=== PATIENT | male | born 1965 | race Caucasian/White ===

== ENCOUNTER 2017-11-01 01:15 | Inpatient (IN) ==
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
[2017-11-01 04:22] LABS: Baso # (Auto) 0.1 th/mm3 (0.0-0.2); Baso % (Auto) 0.7 % (0.0-2.0); Eos # (Auto) 0.1 th/mm3 (0.0-0.4); Eos % (Auto) 1.3 % (0.0-4.0); Hematocrit 43.3 % (39.0-51.0); Hemoglobin 14.9 gm/dL (13.0-17.0); Lymph # (Auto) 2.3 th/mm3 (1.0-4.8); Lymph % (Auto) 30.4 % (9.0-44.0); Mean Corpuscular HGB Conc 34.3 % (32.0-36.0); Mean Corpuscular Hemoglobin 31.6 pg (27.0-34.0); Mean Corpuscular Volume 92.1 fL (80.0-100.0); Mean Platelet Volume 8.3 fL (7.0-11.0); Mono # (Auto) 0.6 th/mm3 (0.0-0.9); Mono % (Auto) 8.5 % (0.0-8.0); Neut # (Auto) 4.4 th/mm3 (1.8-7.7); Neut % (Auto) 59.1 % (16.0-70.0); Platelet Count 190 th/mm3 (150-450); Red Blood Count 4.71 mil/mm3 (4.50-5.90); Red Cell Distribution Width 13.9 % (11.6-17.2); White Blood Count 7.5 th/mm3 (4.0-11.0)
--- NOTE | 2017-11-01 04:26 | XR ---
EXAM DATE: 11/01/2017 4:21 AM EDT AGE/SEX: 52 years / Male INDICATIONS: Shortness of breath CLINICAL DATA: This is the patient's initial encounter. Patient reports that signs and symptoms have been present for 1 day and indicates a pain score of 0/10. MEDICAL/SURGICAL HISTORY: None. None. COMPARISON: . FINDINGS: The lungs are symmetrically aerated. There is a triangular-shaped opacity in the lower lateral right lung which may represent a small infiltrate or atelectasis. The left lung is clear. No evidence of pn eumothorax. Both hemidiaphragms well delineated. The heart is normal size. CONCLUSION: Small opacity in the lower lateral right lung may represent an infiltrate or platelike atelectasis. Electronically signed by: Arnaldo Mauricio MD 11/01/2017 4:25 AM EDT
--- NOTE | 2017-11-01 04:29 | XR ---
EXAM DATE: 11/01/2017 4:22 AM EDT AGE/SEX: 52 years / Male INDICATIONS: Left humerus pain, swelling from known fracture CLINICAL DATA: This is the patient's initial encounter. Patient reports that signs and symptoms have been present for 1 week and indicates a pain score of 8/10. MEDICAL/SURGICAL HISTORY: . Left humerus fracture 2 months ago None. COMPARISON: No prior exams available for comparison. FINDINGS: There is a spiral fracture of the proximal one third shaft of the humerus with one shaft width medial displacement and mild posterior angulation. There are are some faint adjacent calcific densities sug gesting of periosteal ossification. There is no bridging callus across the fracture line however. A h airline fracture line also extends from the proximal diaphysis into the greater tuberosity, best seen on the lateral view. CONCLUSION: There is no bridging callus across the displaced and angulated spiral fracture of the proximal shaft of the humerus. There is also a nondisplaced hairline fracture line which extends into the greater tu berosity. Electronically signed by: Arnaldo Mauricio MD 11/01/2017 4:28 AM EDT
[2017-11-01 04:34] LABS: Activated Partial Thrombo Time 40.6 sec (24.3-30.1); INR 1.4 Ratio; Prothrombin Time 14.6 sec (9.8-11.6)
[2017-11-01 04:46] LABS: Alanine Aminotransferase 24 U/L (12-78); Albumin 2.7 g/dL (3.4-5.0); Anion Gap 9 meq/L (5-15); Aspartate Aminotransferase 75 U/L (15-37); Blood Urea Nitrogen 5 mg/dL (7-18); Calcium 7.9 mg/dL (8.5-10.1); Chloride 95 meq/L (98-107); Glomerular Filtration Rate Greater Than 89 mL/min (>89); Glucose,Random 110 mg/dL (74-106); Lipase 59 U/L (73-393); Magnesium 1.7 mg/dL (1.5-2.5); Sodium 133 meq/L (136-145)
[2017-11-01 04:50] LABS: Alkaline Phosphatase 218 U/L (45-117); Total Protein 7.9 g/dL (6.4-8.2)
[2017-11-01 04:51] LABS: Alcohol 160 mg/dL (0-5)
[2017-11-01] MEDS ORDERED: Vancomycin Inj 1,000 MG in Sodium Chlor 0.9% Inj 250 ML IV.SIG ONE (06:08)
--- NOTE | 2017-11-01 06:24 | CT ---
EXAM DATE: 11/01/2017 5:43 AM EDT AGE/SEX: 52 years / Male INDICATIONS: Abdominal pain, distention. CLINICAL DATA: This is the patient's initial encounter. Patient reports that signs and symptoms have been present for 1 day and indicates a pain score of 6/10. MEDICAL/SURGICAL HISTORY: Hypertension. Cirrhosis. None. ORAL CONTRAST: No oral contrast ingested. RADIATION DOSE: 8.90 CTDI (mGy) COMPARISON: No prior exams available for comparison. TECHNIQUE: Multiple contiguous axial images were obtained through the abdomen and pelvis following b olus infusion of 95 ml Omnipaque 350 (iohexol) nonionic water-soluble contrast as a cumulative dose for multiple exams. No oral contrast ingested. Using automated exposure control and adjustment of t he mA and/or kV according to patient size, radiation dose was kept as low as reasonably achievable to obtain optimal diagnostic quality images. DICOM format image data is available electronically for r eview and comparison. FINDINGS: There is a severe amount of ascites throughout the abdomen and pelvis. Lower Lungs: Segmental consolidation in the medial right lower lung with air bronchograms. Small left pleural effusion. Liver: Mild hepatomegaly with craniocaudal dimension 19 cm. The liver has a homogeneous density witho ut space-occupying lesion. There is no dilation of the biliary tree. No calcified gallstones. Spleen: Moderate enlargement of the spleen measuring 16 cm in craniocaudal dimension. No focal lesio ns. Pancreas: Unremarkable without mass or calcification. Kidneys: Normal in size and shape. No evidence of mass or hydronephrosis. Multiple left renal cysts measuring up to 2 cm. Adrenal Glands: Unremarkable. Aorta: The aorta and proximal iliac vessels are grossly unremarkable without aneurysmal dilation. Bowel/Mesentery: The bowel loops are grossly unremarkable. The cecum and sigmoid colon have a normal configuration. Abdominal Wall: Intact. Retroperitoneum: No evidence of adenopathy in the retrocrural, para-aortic, or deep pelvic regions. Bladder: Contours are smooth. Reproductive Organs: No abnormal masses or calcifications seen. Inguinal: The inguinal region is unremarkable without evidence of adenopathy. Bony Structures: Unremarkable. CONCLUSION: 1. Hepatosplenomegaly without focal lesion. 2. Marked ascites. 3. Segmental right lower lung consolidation and small left pleural effusion. Electronically signed by: Arnaldo Mauricio MD 11/01/2017 6:23 AM EDT
--- NOTE | 2017-11-01 06:27 | CT ---
EXAM DATE: 11/01/2017 5:43 AM EDT AGE/SEX: 52 years / Male INDICATIONS: Altered mental status. CLINICAL DATA: This is the patient's initial encounter. Patient reports that signs and symptoms have been present for 1 day and indicates a pain score of 0/10. MEDICAL/SURGICAL HISTORY: Hypertension. Cirrhosis. None. RADIATION DOSE: 56.35 CTDI (mGy) COMPARISON: No prior exams available for comparison. TECHNIQUE: CT of the head without contrast. Using automated exposure control and adjustment of the mA and/or kV according to patient size, radiation dose was kept as low as reasonably achievable to ob tain optimal diagnostic quality images. DICOM format image data is available electronically for revi ew and comparison. FINDINGS: Cerebrum: The ventricles, sulci, and basal cisterns are prominent characteristic of mild central and cortical atrophy.. No evidence of midline shift, mass lesion, hemorrhage or acute infarction. No e xtraaxial fluid collections are seen. Posterior Fossa: The cerebellum and brainstem are intact. The 4th ventricle is midline. The cerebe llopontine angle is unremarkable. Extracranial: The visualized portion of the orbits is intact. Mild mucosal thickening in the inferio r maxillary sinuses bilaterally. Discontinuity of medial maxillary sinus wall bilaterally suggests guerrero rgical defects. Skull: The calvaria is intact. No evidence of skull fracture. CONCLUSION: 1. Mild central and cortical atrophy. 2. No acute findings in the brain. 3. Mild bilateral maxillary sinus mucosal thickening. . Electronically signed by: Arnaldo Mauricio MD 11/01/2017 6:26 AM EDT
--- NOTE | 2017-11-01 06:39 | CT ---
EXAM DATE: 11/01/2017 6:03 AM EDT AGE/SEX: 52 years / Male INDICATIONS: Osteomyelitis. CLINICAL DATA: This is the patient's initial encounter. Patient reports that signs and symptoms have been present for 1 day and indicates a pain score of 4/10. MEDICAL/SURGICAL HISTORY: Hypertension. Cirrhosis. None. RADIATION DOSE: 32.05 CTDI (mGy) COMPARISON: [facility], HUMERUS LEFT MIN 2V, 11/01/2017. . TECHNIQUE: Multiple contiguous axial images were acquired using a multi-row detector CT scanner afte r the intravenous administration of 95 ml Omnipaque 350 (iohexol) nonionic water-soluble contrast as a cumulative dose for multiple exams. Multiplanar reconstruction was performed in the sagittal and coronal planes. Using automated exposure control and adjustment of the mA and/or kV according to pa tient size, radiation dose was kept as low as reasonably achievable to obtain optimal diagnostic qual ity images. DICOM format image data is available electronically for review and comparison. FINDINGS: There is a spiral comminuted fracture of the proximal one third shaft of the humerus with 27 degree a nterior angulation and 1.8 cm posterior displacement of the distal fracture fragment. There is no virgil dging callus across the fracture line, but there is amorphous periosteal reaction and heterotopic oss ification in the soft tissues about the fracture. There is extension of the lateral aspect of the pro ximal fracture fragment into the cutaneous tissues of the mid arm and there is a discontinuity in the scan adjacent to the inferior pointed margin of this bony fragment. There is some heterotopic ossifi cation surrounding the fragment. There is a hairline fracture, nondisplaced, involving the cortex of the anterior proximal humerus ext ending from the superior margin of the displaced fracture to the greater tuberosity. CONCLUSION: 1. There is no evidence of bony fusion across the displaced, angulated, and spiral fracture of the p roximal humerus. 2. There is a cutaneous defect adjacent to the distal aspect of the proximal fracture fragment sugge sting that the fracture is either an open fracture or there is a sinus tract. A cutaneous defect is l ocated approximately 7 cm distal to the main fracture lucency and laterally in the mid arm. Electronically signed by: Arnaldo Mauricio MD 11/01/2017 6:37 AM EDT
[2017-11-01] MEDS ORDERED: Haloperidol Inj 5 MG/ML Ampul IV.PUSH PRN ×2 (06:59→07:05)
[2017-11-01] MEDS ORDERED: Acetaminophen 325 MG Tablet PO PRN (07:00)
[2017-11-01] MEDS ORDERED: Bisacodyl 10 MG Supp RECTAL PRN (07:00)
[2017-11-01] MEDS ORDERED: Morphine Sulfate Inj 2 MG/ML Vial IV.PUSH PRN (07:02)
[2017-11-01] MEDS ORDERED: Vancomycin Consult Pharmacy OTHER PRN (07:03)
[2017-11-01] MEDS ORDERED: LORazepam 1 MG Tablet PO PRN (07:05)
--- NOTE | 2017-11-01 08:04 | P.CONOP ---
[facility] Orthopedics Consult Note - [facility] Consult date: 11/01/17 Consult reason: other Chief complaint: Sinus tract non-union humerus,fracture,cirrohsis Narrative: 52-year-old male presents to the ED in the care of his spouse for evaluation of drainage from the left upper arm at site of subacute spiral fracture from September 09, 2017. Patient was initially seen at [facility] on September 09 and given his multiple medical comorbidities and fracture type and location, it was recommended for at least an initial nonoperative management in a coaptation splint. Patient then was noncompliant with follow-up and continued to drink and smoke excessively to the point of significant falls. Patient followed up in office approximately 4-5 weeks after initial injury. Radiographs at that time demonstrated bony callus formation and clinically patient had no significant pain and therefore it was recommended given his noncompliance and fracture with signs of healing, that we would continue with nonoperative management. At that time, patient was not interested in surgical intervention. Patient was placed back into a splint and instructed to remain nonweightbearing to left upper extremity. Patient was also counseled on smoking and drinking cessation and avoidance of falls. Patient's girlfriend called our office approximately 1-1/2 weeks ago with concern for bone protruding from his skin. He was instructed to immediately present to the emergency department. Again, patient was noncompliant and did not follow instructions. Patient's girlfriend called overnight again with concern for drainage from the open wound. I again discussed with the patient and his girlfriend that he needed to go immediately to the emergency department. Patient presented to the emergency department drunk with significant blood alcohol level. Again, patient is known to have cirrhosis since August of this year and continues to drink in excess despite this. Patient reports multiple falls recently and is unsure when he developed a wound. He denies any fevers, chills, nausea or vomiting. However, he is a very poor historian at present as he remains drunk Review of Systems Unable to fully obtain as patient still remains drunk Currently denies fevers, chills, nausea, vomiting, chest or abdominal pain. Denies blurry vision or throat pain. Denies any specific weakness. Does complain of some left arm pain. [facility] - History History Provided By: Family Member (Hypertension cirrhosis alcohol use humerus fracture) - Medical History Medical History: Medical History (Last Updated 11/01/17 @ 01:20 by Donya Davalos RN) Hypertension - Tobacco History Tobacco Use In Past 30 Days: Yes Smoking Status: Heavy tobacco smoker Tobacco Type: Cigarettes - Alcohol History How Often Do You Have a Drink Containing Alcohol: 4 or more times a week - Substance Use History Substance History: No History of Abuse - Travel History Recent Travel in the [place] Within the Last 8 Weeks: No Recent Travel Out of the Country Within the Last 8 Weeks: No - Immunization History Tetanus Immunization: >5 Years Hx Influenza Vaccine This Season: Unable to Assess Medications and Allergies Active Medications: Active Medications Acetaminophen (Tylenol) 650 mg PO Q4H PRN PRN Reason: Temp > 100.4 Bisacodyl (Dulcolax Supp) 10 mg RECTAL DAILY PRN PRN Reason: SEVERE CONSITIPATION Flumazenil (Romazecon Inj) 0.2 mg IV.PUSH Q1M PRN PRN Reason: OVERSEDATION Flumazenil (Romazecon Inj) 0.2 mg IV.PUSH Q1M PRN PRN Reason: OVERSEDATION Haloperidol Lactate (Haldol Inj) 1 mg IV.PUSH Q15M PRN PRN Reason: for severe agitation Haloperidol Lactate (Haldol Inj) 1 mg IV.PUSH Q15M PRN PRN Reason: for severe agitation Lorazepam (Ativan) 1 mg PO Q4H PRN PRN Reason: for CIWA 8-10 Lorazepam (Ativan) 2 mg PO Q2H PRN PRN Reason: for CIWA 11-14 Lorazepam (Ativan Inj) 2 mg IV.PUSH Q2H PRN PRN Reason: for CIWA 11-14 Lorazepam (Ativan Inj) 2 mg IV.PUSH Q1H PRN PRN Reason: for CIWA 15-20 Lorazepam (Ativan Inj) 1 mg IV.PUSH Q4H PRN PRN Reason: for CIWA 8-10 Lorazepam (Ativan Inj) 2 mg IV.PUSH Q15M PRN PRN Reason: for CIWA > 20 Lorazepam (Ativan) 2 mg PO Q2H PRN PRN Reason: for CIWA 11-14 Lorazepam (Ativan Inj) 2 mg IV.PUSH Q2H PRN PRN Reason: for CIWA 11-14 Lorazepam (Ativan Inj) 2 mg IV.PUSH Q1H PRN PRN Reason: for CIWA 15-20 Lorazepam (Ativan Inj) 2 mg IV.PUSH Q15M PRN PRN Reason: for CIWA > 20 Lorazepam (Ativan Inj) 1 mg IV.PUSH Q4H PRN PRN Reason: for CIWA 8-10 Lorazepam (Ativan) 1 mg PO Q4H PRN PRN Reason: for CIWA 8-10 Morphine Sulfate (Morphine Inj) 2 mg IV.PUSH Q3H PRN PRN Reason: pain > 4 Pharmacy Profile Note (Vancomycin Consult Pharmacy) 1 each OTHER UNSCH PRN PRN Reason: Pharmacy to dose Sennosides (Senokot) 17.2 mg PO Q12H PRN PRN Reason: Moderate Constipation Sodium Chloride (Ns Flush) 2 ml IV.FLUSH PRN PRN PRN Reason: FLUSH AFTER USING IV ACCESS Allergies Allergy/AdvReac Type Severity Reaction Status Date / Time No Known Allergies Allergy Unverified 11/01/17 01:18 Home Medications Medication Instructions Recorded Confirmed Type No Known Home Medications 11/01/17 11/01/17 History Exam Vital signs: Vital Signs 11/01/17 01:18 11/01/17 03:26 Temperature 98.8 F Pulse Rate 108 H 103 H Respiratory Rate 16 22 Blood Pressure 117/79 109/76 Pulse Oximetry 97 95 Intake & Output 10/31/17 11/01/17 11/01/17 18:59 06:59 18:59 Weight 84 kg 78.018 kg Narrative: Sleeping but arousable with sternal rub. Normocephalic Pupils equal No JVD Moist mucous membranes Nonlabored respirations Distended abdomen with cirrhosis Regular rate Left upper extremity: Splint has been removed and patient is in swelling. Small dressing over anterior aspect of proximal third of the humerus. There is a small approximately 5-10 mm round that appears to be skin erosion due to fracture site. There is mild erythema about this area with tenderness to palpation. Patient is minimally cooperative with neuro exam but appears to spontaneously move left upper extremity. Sensation appears grossly intact. Brisk cap refill. Right upper extremity and bilateral lower extremities: No tenderness to palpation or visible deformities. Again patient is minimally cooperative with neuro exam but does appear to spontaneously move all 3 extremities. Sensation appears intact. Brisk cap refill. No rash Abnormal affect Results - Labs Result Diagrams: 11/01/17 04:10 11/01/17 04:10 Labs: Laboratory Results - last 24 hr 11/01/17 11/01/17 11/01/17 04:10 04:10 04:10 WBC 7.5 RBC 4.71 Hgb 14.9 Hct 43.3 MCV 92.1 MCH 31.6 MCHC 34.3 RDW 13.9 Plt Count 190 MPV 8.3 Neut % (Auto) 59.1 Lymph % (Auto) 30.4 Jewell % (Auto) 8.5 H Eos % (Auto) 1.3 Baso % (Auto) 0.7 Neut # (Auto) 4.4 Lymph # (Auto) 2.3 Jewell # (Auto) 0.6 Eos # (Auto) 0.1 Baso # (Auto) 0.1 WBC Differential . Differential Comment Auto diff final PT INR APTT Sodium 133 L Potassium 4.0 Chloride 95 L Carbon Dioxide 29.0 Anion Gap 9 BUN 5 L Creatinine 0.59 L Estimated GFR Greater than 89 Random Glucose 110 H Lactic Acid 0.8 Calcium 7.9 L Magnesium 1.7 Total Bilirubin 0.8 AST 75 H ALT 24 Alkaline Phosphatase 218 H Ammonia Troponin I Less than 0.02 L Total Protein 7.9 Albumin 2.7 L Lipase 59 L Serum Alcohol 160 H 11/01/17 11/01/17 04:10 04:45 WBC RBC Hgb Hct MCV MCH MCHC RDW Plt Count MPV Neut % (Auto) Lymph % (Auto) Jewell % (Auto) Eos % (Auto) Baso % (Auto) Neut # (Auto) Lymph # (Auto) Jewell # (Auto) Eos # (Auto) Baso # (Auto) WBC Differential Differential Comment PT 14.6 H INR 1.4 APTT 40.6 H Sodium Potassium Chloride Carbon Dioxide Anion Gap BUN Creatinine Estimated GFR Random Glucose Lactic Acid Calcium Magnesium Total Bilirubin AST ALT Alkaline Phosphatase Ammonia 18 Troponin I Total Protein Albumin Lipase Serum Alcohol - Diagnostic results Imaging: Impressions Abdomen/Pelvis CT 11/01/17 03:46 CONCLUSION: 1. Hepatosplenomegaly without focal lesion. 2. Marked ascites. 3. Segmental right lower lung consolidation and small left pleural effusion. Chest X-Ray 11/01/17 03:46 CONCLUSION: Small opacity in the lower lateral right lung may represent an infiltrate or platelike atelectasis. Head CT 11/01/17 03:46 CONCLUSION: 1. Mild central and cortical atrophy. 2. No acute findings in the brain. 3. Mild bilateral maxillary sinus mucosal thickening. . Humerus CT 11/01/17 03:46 CONCLUSION: 1. There is no evidence of bony fusion across the displaced, angulated, and spiral fracture of the proximal humerus. 2. There is a cutaneous defect adjacent to the distal aspect of the proximal fracture fragment suggesting that the fracture is either an open fracture or there is a sinus tract. A cutaneous defect is located approximately 7 cm distal to the main fracture lucency and laterally in the mid arm. Humerus X-Ray 11/01/17 03:46 CONCLUSION: There is no bridging callus across the displaced and angulated spiral fracture of the proximal shaft of the humerus. There is also a nondisplaced hairline fracture line which extends into the greater tuberosity. Assessment and Plan - Assessment and Plan 52-year-old noncompliant gentleman with a proximal third humeral shaft fracture Again, patient continues to be noncompliant with recommendations. He continues to drink to excess with recurrent and frequent falls. In addition, he continues to remove his splint at home. He continues to smoke as well. At this time, I believe he has had an open wound for at least 1-2 weeks although this is indeterminate as both him and his girlfriend up poor historians as to when this occurred. However, patient's girlfriend did call our office approximately 1-1/2 weeks ago with concern for bone protrusion from the skin and was instructed to immediately present to the emergency department. Again patient did not follow instructions and I received another call last night regarding this. Patient was instructed to present to the emergency department again and this time he did follow instructions. I discussed with the patient and his girlfriend given the nature of the open injury at this time, I would recommend surgical intervention. However, given his noncompliance, his liver cirrhosis, and current concern for infection, I would not recommend any fixation at this time. I would recommend irrigation and debridement of the now open fracture site. I discussed with the patient that he may require further surgery in the future should he have recurrent infection or should he develop a nonunion. However, I do not believe hardware placement at this time is appropriate given the concern for infection. Patient is nothing by mouth for surgery later today. Plan is for irrigation and debridement of his left upper arm.
--- NOTE | 2017-11-01 09:57 | P.HPIM ---
History of Present Illness Primary Care Physician: No Primary Care Physician History of Present Illness: 52-year-old male has been hospitalized secondary to a nonunion fracture with fistula and drainage. The patient had a spiral fracture from September 09, 2017. No operative management, coaptation splint placed at that time. Patient is an alcoholic. He has been noncompliant with follow-up, he is reported to have continued to drink and smoke and fall. History is limited today due to inebriation. Patient has complaints of pain. Here because his girlfriend brought him in because she had concerns about the developing fistula and drainage. She also noticed that the arm did not look straight when the splint was taken off. - Diagnosis (1) Fracture of humerus with nonunion (2) Open fracture of humerus with nonunion (3) Cirrhosis Inpatient Certification: I certify that the inpatient services were ordered in accordance with Medicare regulations governing the order. This includes certification that hospital inpatient services are reasonable and necessary and in the case of services not specified as inpatient-only under 42 CFR 419.22(n), that they are appropriately provided as inpatient services in accordance to with the 2-midnight benchmark under 43 CFR 412.3(e) Estimated Total Length of Stay (Days): 3 Plans for Post Hospital Care: Not yet determined Review of Systems Constitutional: No fevers, no chills no night sweats, no fatigue, no weakness Eyes: No eye pain, no blurry vision, no loss of vision ENT: No sore throat, no ear pain, no rhinorrhea Cardiovascular: No chest pain, no tachycardia, no palpitations, no shortness of breath, no syncope Respiratory: No wheezing, no cough, no shortness of breath Gastrointestinal: No abdominal pain, no black tarry stools, no bright red blood per rectum, no vomiting, no diarrhea Musculoskeletal: joint pain, no muscle cramps, no stiffness. Fistula/drainage of her previous fracture site. Integumentary: No rash, no ulcers, no drainage Neurologic: No sensory loss, no loss of motor function, no dizziness Psychiatric: No behavioral changes, no hallucinations, no suicidal ideations [facility] - History History Provided By: Family Member (Hypertension cirrhosis alcohol use humerus fracture) - Medical History Medical History: Medical History (Last Updated 11/01/17 @ 01:20 by Donya Davalos RN) Hypertension - Family History Family History: Family History (Last Updated 11/01/17 @ 09:53 by Haim Mcbride MD) Other Osteoarthritis - Tobacco History Tobacco Use In Past 30 Days: Yes Smoking Status: Heavy tobacco smoker Tobacco Type: Cigarettes - Alcohol History How Often Do You Have a Drink Containing Alcohol: 4 or more times a week - Substance Use History Substance History: No History of Abuse - Travel History Recent Travel in the [place] Within the Last 8 Weeks: No Recent Travel Out of the Country Within the Last 8 Weeks: No - Immunization History Tetanus Immunization: >5 Years Hx Influenza Vaccine This Season: Unable to Assess Medications and Allergies Active Medications: Active Medications Acetaminophen (Tylenol) 650 mg PO Q4H PRN PRN Reason: Temp > 100.4 Bisacodyl (Dulcolax Supp) 10 mg RECTAL DAILY PRN PRN Reason: SEVERE CONSITIPATION Flumazenil (Romazecon Inj) 0.2 mg IV.PUSH Q1M PRN PRN Reason: OVERSEDATION Flumazenil (Romazecon Inj) 0.2 mg IV.PUSH Q1M PRN PRN Reason: OVERSEDATION Haloperidol Lactate (Haldol Inj) 1 mg IV.PUSH Q15M PRN PRN Reason: for severe agitation Haloperidol Lactate (Haldol Inj) 1 mg IV.PUSH Q15M PRN PRN Reason: for severe agitation Lorazepam (Ativan) 1 mg PO Q4H PRN PRN Reason: for CIWA 8-10 Lorazepam (Ativan) 2 mg PO Q2H PRN PRN Reason: for CIWA 11-14 Lorazepam (Ativan Inj) 2 mg IV.PUSH Q2H PRN PRN Reason: for CIWA 11-14 Lorazepam (Ativan Inj) 2 mg IV.PUSH Q1H PRN PRN Reason: for CIWA 15-20 Lorazepam (Ativan Inj) 1 mg IV.PUSH Q4H PRN PRN Reason: for CIWA 8-10 Lorazepam (Ativan Inj) 2 mg IV.PUSH Q15M PRN PRN Reason: for CIWA > 20 Lorazepam (Ativan) 2 mg PO Q2H PRN PRN Reason: for CIWA 11-14 Lorazepam (Ativan Inj) 2 mg IV.PUSH Q2H PRN PRN Reason: for CIWA 11-14 Lorazepam (Ativan Inj) 2 mg IV.PUSH Q1H PRN PRN Reason: for CIWA 15-20 Lorazepam (Ativan Inj) 2 mg IV.PUSH Q15M PRN PRN Reason: for CIWA > 20 Lorazepam (Ativan Inj) 1 mg IV.PUSH Q4H PRN PRN Reason: for CIWA 8-10 Lorazepam (Ativan) 1 mg PO Q4H PRN PRN Reason: for CIWA 8-10 Morphine Sulfate (Morphine Inj) 2 mg IV.PUSH Q3H PRN PRN Reason: pain > 4 Pharmacy Profile Note (Vancomycin Consult Pharmacy) 1 each OTHER UNSCH PRN PRN Reason: Pharmacy to dose Sennosides (Senokot) 17.2 mg PO Q12H PRN PRN Reason: Moderate Constipation Sodium Chloride (Ns Flush) 2 ml IV.FLUSH PRN PRN PRN Reason: FLUSH AFTER USING IV ACCESS Allergies Allergy/AdvReac Type Severity Reaction Status Date / Time No Known Allergies Allergy Unverified 11/01/17 01:18 Home Medications Medication Instructions Recorded Confirmed Type No Known Home Medications 11/01/17 11/01/17 History Exam Vital signs: Vital Signs 11/01/17 01:18 11/01/17 03:26 11/01/17 07:00 Temperature 98.8 F 98.2 F Pulse Rate 108 H 103 H 89 Respiratory Rate 16 22 16 Blood Pressure 117/79 109/76 110/56 L Pulse Oximetry 97 95 92 L 11/01/17 09:12 Temperature 97.1 F L Pulse Rate 87 Respiratory Rate 18 Blood Pressure 115/77 Pulse Oximetry 95 Intake & Output 10/31/17 11/01/17 11/01/17 18:59 06:59 18:59 Intake Total 250 / 250 Balance 250 / 250 Weight 84 kg 78.018 kg Intake: IV 250 / 250 Vancomycin Inj 1,000 MG In NS 250 / 250 Inj 250 ML @ 250 mls/hr IV.SIG ONCE ONE Rx#:[id number] Narrative: GENERAL: NAD, A&Ox3 HEAD: Normocephalic. NECK: Supple, trachea midline. No lymphadenopathy. EYES: No scleral icterus. No injection or drainage. CARDIOVASCULAR: Regular rate and rhythm without murmurs, gallops, or rubs. RESPIRATORY: Breath sounds equal bilaterally. No accessory muscle use. GASTROINTESTINAL: Abdomen soft, non-tender, nondistended. MUSCULOSKELETAL: No cyanosis, or edema. SKIN: Warm and dry. NEURO: No focal neurological deficits. Results - Labs CBC & Chem 7: 11/01/17 04:10 11/01/17 04:10 Labs: Short CBC 11/01/17 Range/Units 04:10 WBC 7.5 (4.0-11.0) th/mm3 Hgb 14.9 (13.0-17.0) gm/dL Hct 43.3 (39.0-51.0) % Plt Count 190 (150-450) th/mm3 BMP 11/01/17 04:10 Sodium 133 L Potassium 4.0 Chloride 95 L Carbon Dioxide 29.0 BUN 5 L Creatinine 0.59 L Calcium 7.9 L Cardiac Enzymes 11/01/17 Range/Units 04:10 Troponin I Less than 0.02 L (0.02-0.05) ng/mL Liver Function 11/01/17 Range/Units 04:10 Total Bilirubin 0.8 (0.2-1.0) mg/dL AST 75 H (15-37) U/L ALT 24 (12-78) U/L Alkaline Phosphatase 218 H (45-117) U/L Albumin 2.7 L (3.4-5.0) g/dL - Imaging Impressions Abdomen/Pelvis CT 11/01/17 03:46 CONCLUSION: 1. Hepatosplenomegaly without focal lesion. 2. Marked ascites. 3. Segmental right lower lung consolidation and small left pleural effusion. Chest X-Ray 11/01/17 03:46 CONCLUSION: Small opacity in the lower lateral right lung may represent an infiltrate or platelike atelectasis. Head CT 11/01/17 03:46 CONCLUSION: 1. Mild central and cortical atrophy. 2. No acute findings in the brain. 3. Mild bilateral maxillary sinus mucosal thickening. . Humerus CT 11/01/17 03:46 CONCLUSION: 1. There is no evidence of bony fusion across the displaced, angulated, and spiral fracture of the proximal humerus. 2. There is a cutaneous defect adjacent to the distal aspect of the proximal fracture fragment suggesting that the fracture is either an open fracture or there is a sinus tract. A cutaneous defect is located approximately 7 cm distal to the main fracture lucency and laterally in the mid arm. Humerus X-Ray 11/01/17 03:46 CONCLUSION: There is no bridging callus across the displaced and angulated spiral fracture of the proximal shaft of the humerus. There is also a nondisplaced hairline fracture line which extends into the greater tuberosity. Caprini VTE Risk Assessment Caprini VTE Risk Assessment: No/Low Risk (score <= 1) Caprini Risk Assessment Model: Point Value = 1 Point Value = 2 Point Value = 3 Point Value = 5 Age 41-60 Minor surgery BMI > 25 kg/m2 Swollen legs Varicose veins or History of unexplained or recurrent spontaneous Oral contraceptives or hormone replacement Sepsis (< 1 month) Serious lung disease, including pneumonia (< 1 month) Abnormal pulmonary function Acute myocardial infarction Congestive heart failure (< 1 month) History of inflammatory bowel disease Medical patient at bed rest Age 61-74 Arthroscopic surgery Major open surgery (> 45 min) Laparoscopic surgery (> 45 min) Malignancy Confined to bed (> 72 hours) Immobilizing plaster cast Central venous access Age >= 75 History of VTE Family history of VTE Factor V Leiden Prothrombin [id number] Lupus anticoagulant Anticardiolipin antibodies Elevated serum homocysteine Heparin-induced thrombocytopenia Other congenital or acquired thrombophilia Stroke (< 1 month) Elective arthroplasty Hip, pelvis, or leg fracture Acute spinal cord injury (< 1 month) Prophylaxis Regimen: Total Risk Factor Score Risk Level Prophylaxis Regimen 0-1 Low Early ambulation 2 Moderate Order ONE of the following: *Sequential Compression Device (SCD) *Heparin 5000 units SQ BID 3-4 Higher Order ONE of the following medications: *Heparin 5000 units SQ TID *Enoxaparin/Lovenox 40 mg SQ daily (WT < 150 kg, CrCl > 30 mL/min) *Enoxaparin/Lovenox 30 mg SQ daily (WT < 150 kg, CrCl > 10-29 mL/min) *Enoxaparin/Lovenox 30 mg SQ BID (WT < 150 kg, CrCl > 30 mL/min) AND/OR *Sequential Compression Device (SCD) 5 or more Highest Order ONE of the following medications: *Heparin 5000 units SQ TID (Preferred with Epidurals) *Enoxaparin/Lovenox 40 mg SQ daily (WT < 150 kg, CrCl > 30 mL/min) *Enoxaparin/Lovenox 30 mg SQ daily (WT < 150 kg, CrCl > 10-29 mL/min) *Enoxaparin/Lovenox 30 mg SQ BID (WT < 150 kg, CrCl > 30 mL/min) AND *Sequential Compression Device (SCD) Assessment and Plan - Assessment (1) Fracture of humerus with nonunion Code(s): S42.309K - Unspecified fracture of shaft of humerus, unspecified arm, subsequent encounter for fracture with nonunion Status: Acute (2) Open fracture of humerus with nonunion Code(s): S42.309K - Unspecified fracture of shaft of humerus, unspecified arm, subsequent encounter for fracture with nonunion Status: Acute (3) Cirrhosis Code(s): K74.60 - Unspecified cirrhosis of liver Status: Acute - Plan 52-year-old male admitted secondary to nonunion humerus fracture now with a fistula and drainage. Med rec pending as patient cannot recall his chronic medical treatments. Nonunionized humerus fracture Fistula/sinus with drainage over fracture site Orthopedic consult Vancomycin PRN pain treatments Cirrhosis Avoid toxins Avoid alcohol History of alcoholism Follow for any withdrawal CIWA protocol Folic acid Thiamine Follow for DTs Hypertension Continue baseline treatment Follow blood pressures Adjust treatments as needed DVT prophylaxis SCDs
[2017-11-01] MEDS ORDERED: Sodium Chlor 0.9% Inj 500 ML IV.CONT ONE (10:15)
[2017-11-01] MEDS ORDERED: Metoprolol Tartrate 25 MG Tablet PO ONE (10:15)
[2017-11-01] MEDS ORDERED: Chlorhexidine Gluconate 2% 1 Pack (2 Cloths) TOPICAL ONE (10:15)
[2017-11-01] MEDS: Sod Chloride 0.9% Inj 1,000 ML IV.CONT SCH ×2 (10:54→23:17)
[2017-11-01] MEDS ORDERED: Gadobutrol PF 10 MMOL/10 ML Vial (for RAD) IV.SIG ONE (15:58)
--- NOTE | 2017-11-01 16:19 | MR ---
EXAM DATE: 11/01/2017 4:06 PM EDT AGE/SEX: 52 years / Male INDICATIONS: Possible osteomyelitis or cellulitis, fistula present. CLINICAL DATA: This is the patient's initial encounter. Patient reports that signs and symptoms have been present for 2 months and indicates a pain score of 9/10. MEDICAL/SURGICAL HISTORY: Hypertension. Cirrhosis. None. COMPARISON: [facility] [place], CT HUMERUS LEFT W CONTRAST, 11/01/2017. . TECHNIQUE: Multiplanar, multisequence MRI examination was performed without and with 7.50 ml Gadavis t (gadobutrol) contrast as single exam dose. FINDINGS: Patient has a known nonhealing fracture in the humerus with intense marrow edema in both ends of the fracture, subcutaneous edema and fluid. Hematoma may be present as well. It is impossible to exclude osteomyelitis in this setting. If this cannot be sorted out clinically, Tagged white cell study might offer more information althoug h I'm afraid it might be possible because of the fracture. Other consideration would be perform a bone gallium scan at the same setting and CSF the gallium is h otter than the bone. Bilateral pleural effusions. CONCLUSION: 1. Inconclusive exam as above. Electronically signed by: Rashid Herron MD 11/01/2017 4:18 PM EDT
[2017-11-01] MEDS: Vancomycin Inj 1,500 MG in Sodium Chlor 0.9% Inj 500 ML IV.SIG SCH (17:59)
[2017-11-01] MEDS ORDERED: Glycopyrrolate Inj 1 MG/5 ML Syringe IV.PUSH ONE (19:12)
[2017-11-01] MEDS ORDERED: Esmolol Bolus Inj 100 MG/10 ML Vial IV.PUSH ONE (19:12)
[2017-11-01] MEDS ORDERED: Lidocaine PF 1% Inj 5 ML Syringe INFILTRATN ONE (19:12)
[2017-11-01] MEDS ORDERED: Neostigmine Inj 5 MG/5 ML Syringe IV.PUSH ONE (19:12)
[2017-11-01] MEDS ORDERED: Post-op Orders (for Pharmacy) OTHER STA (19:52)
--- NOTE | 2017-11-01 19:55 | P.BOP ---
Date of procedure: 11/01/17 Procedure: Irrigation and debridement left arm, placement of antibiotic beads Implants: None Surgeon: Jo Salinas MD Estimated blood loss (mL): 75 Pathology: other Condition: stable Disposition: PACU (Cultures and pathology sent)
--- NOTE | 2017-11-01 19:56 | P.PNOP ---
Subjective Interval history: POD#0 s/p I&D L arm/humerus, placement abx beads Physical Exam Vital signs: Vital Signs 11/01/17 01:18 11/01/17 03:26 11/01/17 07:00 Temperature 98.8 F 98.2 F Pulse Rate 108 H 103 H 89 Respiratory Rate 16 22 16 Blood Pressure 117/79 109/76 110/56 L Pulse Oximetry 97 95 92 L 11/01/17 09:12 11/01/17 12:00 11/01/17 13:27 Temperature 97.1 F L 98.3 F Pulse Rate 87 88 86 Respiratory Rate 18 18 Blood Pressure 115/77 114/78 Pulse Oximetry 95 93 L 11/01/17 16:00 11/01/17 17:55 Temperature 98.0 F Pulse Rate 18 L Respiratory Rate 18 Blood Pressure 123/87 Pulse Oximetry 93 L 93 L Intake & Output 11/01/17 11/01/17 11/02/17 06:59 18:59 06:59 Intake Total 250 / 250 Balance 250 / 250 Weight 84 kg 78.018 kg Intake: IV 250 / 250 Vancomycin Inj 1,000 MG In NS 250 / 250 Inj 250 ML @ 250 mls/hr IV.SIG ONCE ONE Rx#:[id number] Results - Labs CBC & Chem 7: 11/01/17 04:10 11/01/17 04:10 Laboratory Results - last 24 hr 11/01/17 11/01/17 11/01/17 04:10 04:10 04:10 WBC 7.5 RBC 4.71 Hgb 14.9 Hct 43.3 MCV 92.1 MCH 31.6 MCHC 34.3 RDW 13.9 Plt Count 190 MPV 8.3 Neut % (Auto) 59.1 Lymph % (Auto) 30.4 [place] % (Auto) 8.5 H Eos % (Auto) 1.3 Baso % (Auto) 0.7 Neut # (Auto) 4.4 Lymph # (Auto) 2.3 [place] # (Auto) 0.6 Eos # (Auto) 0.1 Baso # (Auto) 0.1 WBC Differential . Differential Comment Auto diff final PT INR APTT Sodium 133 L Potassium 4.0 Chloride 95 L Carbon Dioxide 29.0 Anion Gap 9 BUN 5 L Creatinine 0.59 L Estimated GFR Greater than 89 Random Glucose 110 H Lactic Acid 0.8 Calcium 7.9 L Magnesium 1.7 Total Bilirubin 0.8 AST 75 H ALT 24 Alkaline Phosphatase 218 H Ammonia Troponin I Less than 0.02 L Total Protein 7.9 Albumin 2.7 L Lipase 59 L Serum Alcohol 160 H 11/01/17 11/01/17 04:10 04:45 WBC RBC Hgb Hct MCV MCH MCHC RDW Plt Count MPV Neut % (Auto) Lymph % (Auto) [place] % (Auto) Eos % (Auto) Baso % (Auto) Neut # (Auto) Lymph # (Auto) [place] # (Auto) Eos # (Auto) Baso # (Auto) WBC Differential Differential Comment PT 14.6 H INR 1.4 APTT 40.6 H Sodium Potassium Chloride Carbon Dioxide Anion Gap BUN Creatinine Estimated GFR Random Glucose Lactic Acid Calcium Magnesium Total Bilirubin AST ALT Alkaline Phosphatase Ammonia 18 Troponin I Total Protein Albumin Lipase Serum Alcohol Microbiology 11/01/17 04:10 Wound - Arm Gram Stain - Final - Imaging Impressions Humerus MRI 11/01/17 00:00 CONCLUSION: 1. Inconclusive exam as above. Abdomen/Pelvis CT 11/01/17 03:46 CONCLUSION: 1. Hepatosplenomegaly without focal lesion. 2. Marked ascites. 3. Segmental right lower lung consolidation and small left pleural effusion. Chest X-Ray 11/01/17 03:46 CONCLUSION: Small opacity in the lower lateral right lung may represent an infiltrate or platelike atelectasis. Head CT 11/01/17 03:46 CONCLUSION: 1. Mild central and cortical atrophy. 2. No acute findings in the brain. 3. Mild bilateral maxillary sinus mucosal thickening. . Humerus CT 11/01/17 03:46 CONCLUSION: 1. There is no evidence of bony fusion across the displaced, angulated, and spiral fracture of the proximal humerus. 2. There is a cutaneous defect adjacent to the distal aspect of the proximal fracture fragment suggesting that the fracture is either an open fracture or there is a sinus tract. A cutaneous defect is located approximately 7 cm distal to the main fracture lucency and laterally in the mid arm. Humerus X-Ray 11/01/17 03:46 CONCLUSION: There is no bridging callus across the displaced and angulated spiral fracture of the proximal shaft of the humerus. There is also a nondisplaced hairline fracture line which extends into the greater tuberosity. Assessment and Plan - Assessment and Plan 52-year-old noncompliant gentleman with a proximal third humeral shaft fracture , now with open humerus fracture, POD#0 s/p I&D and placement dissolvable antibiotic beads 1. NWB LUE in sling and swathe 2. Intraop cultures obtained. Will follow 3. Continue abx per ID/Medicine 4. Patient may be discharged home with follow-up in 2 weeks once antibiotics are arranged
[2017-11-01] MEDS ORDERED: fentaNYL Citrate Inj 100 MCG/2 ML Ampul ONE ×2 (20:21)
[2017-11-02] MEDS: Vancomycin Inj 1,500 MG in Sodium Chlor 0.9% Inj 500 ML IV.SIG SCH ×2 (01:39→14:15)
[2017-11-02] MEDS: Morphine Inj 4 MG/ML Vial IV.PUSH PRN ×5 (04:11→23:16)
[2017-11-02 06:35] LABS: Bacteria,Urine Rare /hpf; Bilirubin,Urine Negative (Negative); Clarity,Urine Hazy (Clear); Color,Urine Amber (Yellw/Straw); Glucose,Urine (UA) Negative (Negative); Hyaline Casts,Urine 3 /lpf (0-3); Leukocyte Esterase,Urine Negative (Negative); Mucus,Urine Few /lpf (Occasional); Nitrite,Urine Negative (Negative); Specific Gravity,Urine 1.025 (1.002-1.035); Urobilinogen,Urine 4 or Greater mg/dL (Less than 2)
[2017-11-02 09:06] LABS: Baso % (Auto) 0.2 % (0.0-2.0); Hematocrit 39.7 % (39.0-51.0); Hemoglobin 13.1 gm/dL (13.0-17.0); Lymph # (Auto) 0.9 th/mm3 (1.0-4.8); Lymph % (Auto) 19.9 % (9.0-44.0); Mean Corpuscular HGB Conc 33.1 % (32.0-36.0); Mean Corpuscular Hemoglobin 31.1 pg (27.0-34.0); Mean Corpuscular Volume 94.1 fL (80.0-100.0); Mean Platelet Volume 8.1 fL (7.0-11.0); Mono # (Auto) 0.5 th/mm3 (0.0-0.9); Mono % (Auto) 10.9 % (0.0-8.0); Platelet Count 128 th/mm3 (150-450); Red Blood Count 4.21 mil/mm3 (4.50-5.90); Red Cell Distribution Width 13.6 % (11.6-17.2); White Blood Count 4.3 th/mm3 (4.0-11.0)
[2017-11-02 09:12] LABS: Albumin 2.2 g/dL (3.4-5.0); Anion Gap 9 meq/L (5-15); Aspartate Aminotransferase 45 U/L (15-37); Blood Urea Nitrogen 7 mg/dL (7-18); Calcium 7.5 mg/dL (8.5-10.1); Carbon Dioxide 26.4 meq/L (21.0-32.0); Chloride 98 meq/L (98-107); Glomerular Filtration Rate Greater Than 89 mL/min (>89); Glucose,Random 120 mg/dL (74-106); Potassium 4.2 meq/L (3.5-5.1); Sodium 133 meq/L (136-145)
[2017-11-02 09:14] LABS: Alanine Aminotransferase 17 U/L (12-78)
[2017-11-02 09:15] LABS: Alkaline Phosphatase 167 U/L (45-117); Total Protein 6.3 g/dL (6.4-8.2)
[2017-11-02] MEDS: Folic Acid 1 MG Tablet PO SCH (09:16)
--- NOTE | 2017-11-02 09:23 | P.PNIM ---
Subjective Interval history: f/u; left upper extremity infection in no acute distress. pain seems to be fairly controlled. but complaining of abdominal distention/ pressure. no fever. d/w the RN at the bedside. Physical Exam Vital signs: Vital Signs 11/01/17 12:00 11/01/17 13:27 11/01/17 16:00 Temperature 98.3 F 98.0 F Pulse Rate 88 86 18 L Respiratory Rate 18 18 Blood Pressure 114/78 123/87 Pulse Oximetry 93 L 93 L 11/01/17 17:55 11/01/17 19:15 11/01/17 20:30 Temperature 98.0 F 98.0 F Pulse Rate 91 H 94 H Respiratory Rate 14 14 Blood Pressure 130/70 120/69 Pulse Oximetry 93 L 94 L 94 L 11/01/17 20:45 11/01/17 21:00 11/01/17 21:15 Temperature 98.0 F 98.0 F 98.0 F Pulse Rate 92 H 91 H 90 Respiratory Rate 14 14 14 Blood Pressure 111/68 117/71 115/70 Pulse Oximetry 96 97 97 11/01/17 21:30 11/02/17 00:00 11/02/17 04:00 Temperature 98.0 F 97.9 F 97.6 F Pulse Rate 89 89 84 Respiratory Rate 14 18 18 Blood Pressure 110/69 118/83 118/81 Pulse Oximetry 93 L 95 95 11/02/17 04:14 11/02/17 08:00 Temperature 97.7 F Pulse Rate 87 Respiratory Rate 18 18 Blood Pressure 116/77 Pulse Oximetry 94 L Intake & Output 11/01/17 11/02/17 11/02/17 18:59 06:59 18:59 Intake Total 250 / 250 2944 / 2944 Output Total 575 / 575 Balance 250 / 250 2369 / 2369 Weight 78.018 kg 89.2 kg Intake: IV 250 / 250 1030 / 1030 LR 1000 mL Inj 1,000 ML @ 30 0 / 0 mls/hr IV.CONT .Q24H ONE Rx#: [id number] Vancomycin Inj 1,000 MG In NS 250 / 250 Inj 250 ML @ 250 mls/hr IV.SIG ONCE ONE Rx#:[id number] Vancomycin Inj 1,500 MG In NS 1030 / 1030 Inj 500 ML @ 250 mls/hr IV.SIG Q12H LE Rx#:[id number] Oral 442 / 442 Anesthesia Amount 800 / 800 Other 672 / 672 Output: Urine 500 / 500 Estimated Blood Loss 75 / 75 Other: Other Intake Source Saline Solution Date of Last Bowel Movement 11/01/07 - Constitutional no acute distress - Routine Respiratory Exam Present: CTA bilaterally - Routine Cardiovascular Exam Present: RRR - Routine Abdominal Exam Present: soft, distended - Routine Extremities Exam Comments: left upper extremity covered with clean dressing/ in sling. - Routine Neurological Exam Present: alert, oriented X3 Results - Labs CBC & Chem 7: 11/02/17 07:35 11/02/17 07:35 Laboratory Results - last 24 hr 11/02/17 11/02/17 11/02/17 06:13 07:35 07:35 WBC 4.3 RBC 4.21 L Hgb 13.1 Hct 39.7 MCV 94.1 MCH 31.1 MCHC 33.1 RDW 13.6 Plt Count 128 L D MPV 8.1 Neut % (Auto) 69.0 Lymph % (Auto) 19.9 [place] % (Auto) 10.9 H Eos % (Auto) 0.0 Baso % (Auto) 0.2 Neut # (Auto) 3.0 Lymph # (Auto) 0.9 L [place] # (Auto) 0.5 Eos # (Auto) 0.0 Baso # (Auto) 0.0 WBC Differential . Differential Comment Auto diff final Sodium 133 L Potassium 4.2 Chloride 98 Carbon Dioxide 26.4 Anion Gap 9 BUN 7 Creatinine 0.53 L Estimated GFR Greater than 89 Random Glucose 120 H Calcium 7.5 L Total Bilirubin 0.8 AST 45 H ALT 17 Alkaline Phosphatase 167 H Total Protein 6.3 L D Albumin 2.2 L Urine Color Sarah Beth Urine Clarity Hazy H Urine pH 5.0 Ur Specific [place] 1.025 Urine Protein Negative Urine Glucose (UA) Negative Urine Ketones Trace H Urine Occult Blood Negative Urine Nitrate Negative Urine Bilirubin Negative Urine Urobilinogen 4 or greater Ur Leukocyte Esterase Negative Urine RBC 2 Urine WBC 2 Urine Bacteria Rare H Hyaline Casts 3 Urine Mucus Few H Micro UA Comment Culture not ind Ur Microscopic Review Not Reportable Urine Culture Comments Culture not ind Microbiology 11/01/17 19:18 Tissue - Arm Gram Stain - Final 11/01/17 19:18 Tissue - Arm Fungal Smear - Final No fungal elements seen 11/01/17 04:10 Wound - Arm Gram Stain - Final - Imaging Impressions Humerus MRI 11/01/17 00:00 CONCLUSION: 1. Inconclusive exam as above. Assessment and Plan - Assessment (1) Fracture of humerus with nonunion Code(s): S42.309K - Unspecified fracture of shaft of humerus, unspecified arm, subsequent encounter for fracture with nonunion Status: Acute (2) Open fracture of humerus with nonunion Code(s): S42.309K - Unspecified fracture of shaft of humerus, unspecified arm, subsequent encounter for fracture with nonunion Status: Acute (3) Cirrhosis Code(s): K74.60 - Unspecified cirrhosis of liver Status: Acute - Plan 52-year-old male admitted secondary to nonunion humerus fracture now with a fistula and drainage. Nonunion of the humerus fracture Fistula/sinus with drainage over fracture site Orthopedic consult appreciated and s/p I/D continue Vancomycin consult ID to assist with antibiotic regimen PRN pain treatments Cirrhosis- alcohol induced. will consult IR for paracentesis Avoid toxins Avoid alcohol History of alcoholism Follow for any withdrawal CIWA protocol Folic acid Thiamine Follow for DTs Hypertension Continue baseline treatment Follow blood pressures Adjust treatments as needed DVT prophylaxis SCDs Discharge Planning: within the next 48 hrs- pending IR/ID evaluation and cultures.
[2017-11-02] MEDS: Sod Chloride 0.9% Inj 1,000 ML IV.CONT SCH (09:29)
[2017-11-02] MEDS: LORazepam 1 MG Tablet PO PRN ×2 (09:35→21:26)
[2017-11-02] MEDS ORDERED: Pharmacy Ordered Lab Info OTHER SCH (12:45)
--- NOTE | 2017-11-02 16:13 | P.CONID ---
History of Present Illness Service: ID Consult date: 11/02/17 Requesting Physician: Jo Salinas Reason for Consult: osteomyeliti L humerus Primary Care Provider: No Primary Care Physician History of Present Illness: 52 yo male with chronic alcoholism and ETOH induced liver cirrhosis sp spiral fracture of L humerus 3 weeks ago presented with pain swelling and drainage from a wound noted after splint was removed by s/o on endorces fever, chills No abx [employer] MRI with ? osteo sp Irrigation and debridement left arm, placement of antibiotic beads on 11/[address] Rita MD Pt smokes 3/4 pppd and drinks 2-3 shots/ day. Last drink on Pt is afebrile with normal WBC One of clx growing haevy skin tea includiong coag neg staph x 2 morphologies Review of Systems All other systems reviewed negative except as stated in HPI PMFSH - History History Provided By: Family Member (Hypertension cirrhosis alcohol use humerus fracture) - Medical History Medical History: Medical History (Last Reviewed 11/02/17 @ 15:31 by Bertha Russell MD) Hypertension - Surgical History Surgical History: Surgical History (Last Updated 11/02/17 @ 15:31 by Bertha Russell MD) No history of previous surgery - Family History Family History: Family History (Last Reviewed 11/02/17 @ 15:31 by Bertha Russell MD) Other Osteoarthritis - Tobacco History Tobacco Use In Past 30 Days: Yes Smoking Status: Heavy tobacco smoker Tobacco Type: Cigarettes - Alcohol History How Often Do You Have a Drink Containing Alcohol: 4 or more times a week - Substance Use History Substance History: No History of Abuse - Travel History Recent Travel in the [place] Within the Last 8 Weeks: No Recent Travel Out of the Country Within the Last 8 Weeks: No - Immunization History Tetanus Immunization: >5 Years Hx Influenza Vaccine This Season: Unable to Assess Medications and Allergies Active Medications: Active Medications Bisacodyl (Dulcolax Supp) 10 mg RECTAL DAILY PRN PRN Reason: SEVERE CONSITIPATION Diphenhydramine HCl (Benadryl) 25 mg PO Q6H PRN PRN Reason: ITCHING Flumazenil (Romazecon Inj) 0.2 mg IV.PUSH Q1M PRN PRN Reason: OVERSEDATION Folic Acid (Folic Acid) 1 mg PO DAILY LE Last Admin: 11/02/17 09:16 Dose: 1 mg Haloperidol Lactate (Haldol Inj) 1 mg IV.PUSH Q15M PRN PRN Reason: for severe agitation Sodium Chloride (Ns Inj) 1,000 mls @ 84 mls/hr IV.CONT .[id number] ON LICENSE OF [facility] Last Admin: 11/02/17 09:29 Dose: 84 mls/hr Vancomycin HCl 1,500 mg/ (Sodium Chloride) 515 mls @ 250 mls/hr IV.SIG Q12H ON LICENSE OF [facility] Last Admin: 11/02/17 14:15 Dose: 200 mls/hr Lorazepam (Ativan) 1 mg PO Q4H PRN PRN Reason: for CIWA 8-10 Last Admin: 11/02/17 09:35 Dose: 1 mg Lorazepam (Ativan) 2 mg PO Q2H PRN PRN Reason: for CIWA 11-14 Lorazepam (Ativan Inj) 2 mg IV.PUSH Q2H PRN PRN Reason: for CIWA 11-14 Lorazepam (Ativan Inj) 2 mg IV.PUSH Q1H PRN PRN Reason: for CIWA 15-20 Lorazepam (Ativan Inj) 1 mg IV.PUSH Q4H PRN PRN Reason: for CIWA 8-10 Lorazepam (Ativan Inj) 2 mg IV.PUSH Q15M PRN PRN Reason: for CIWA > 20 Miscellaneous Information ([facility] Info) 1 each OTHER ONCE ON LICENSE OF [facility] Miscellaneous Information ([facility]) 0 each OTHER UNSCH PRN PRN Reason: SEE LABEL COMMENTS Stop: 11/02/17 20:19 Morphine Sulfate (Morphine Inj) 2 mg IV.PUSH Q4H PRN PRN Reason: Pain 3 to 6 Last Admin: 11/02/17 14:16 Dose: 2 mg Morphine Sulfate (Morphine Inj) 4 mg IV.PUSH Q4H PRN PRN Reason: Pain 7 to 10 Pharmacy Profile Note (Vancomycin Consult Pharmacy) 1 each OTHER UNSCH PRN PRN Reason: Pharmacy to dose Sennosides (Senokot) 17.2 mg PO Q12H PRN PRN Reason: Moderate Constipation Sodium Chloride (Ns Flush) 2 ml IV.FLUSH BID ON LICENSE OF [facility] Last Admin: 11/02/17 09:16 Dose: Not Given Sodium Chloride (Ns Flush) 2 ml IV.FLUSH UNSCH PRN PRN Reason: FLUSH AFTER USING IV ACCESS Thiamine HCl (Vitamin B1) 100 mg PO BID LE Last Admin: 11/02/17 09:16 Dose: 100 mg Allergies Allergy/AdvReac Type Severity Reaction Status Date / Time No Known Allergies Allergy Unverified 11/01/17 01:18 Home Medications Medication Instructions Recorded Confirmed Type No Known Home Medications 11/01/17 11/01/17 History Exam Vital signs: Vital Signs 11/01/17 16:00 11/01/17 17:55 11/01/17 19:15 Temperature 98.0 F 98.0 F Pulse Rate 18 L 91 H Respiratory Rate 18 14 Blood Pressure 123/87 130/70 Pulse Oximetry 93 L 93 L 94 L 11/01/17 20:30 11/01/17 20:45 11/01/17 21:00 Temperature 98.0 F 98.0 F 98.0 F Pulse Rate 94 H 92 H 91 H Respiratory Rate 14 14 14 Blood Pressure 120/69 111/68 117/71 Pulse Oximetry 94 L 96 97 11/01/17 21:15 11/01/17 21:30 11/02/17 00:00 Temperature 98.0 F 98.0 F 97.9 F Pulse Rate 90 89 89 Respiratory Rate 14 14 18 Blood Pressure 115/70 110/69 118/83 Pulse Oximetry 97 93 L 95 11/02/17 04:00 11/02/17 04:14 11/02/17 08:00 Temperature 97.6 F 97.7 F Pulse Rate 84 92 H Respiratory Rate 18 18 18 Blood Pressure 118/81 116/77 Pulse Oximetry 95 94 L 11/02/17 09:00 11/02/17 12:00 Temperature 98.0 F Pulse Rate 92 H 95 H Respiratory Rate 12 Blood Pressure 111/74 Pulse Oximetry 94 L Intake & Output 11/01/17 11/02/17 11/02/17 18:59 06:59 18:59 Intake Total 250 / 250 2944 / 2944 1000 / 1000 Output Total 575 / 575 Balance 250 / 250 2369 / 2369 1000 / 1000 Weight 78.018 kg 89.2 kg Intake: IV 250 / 250 1030 / 1030 1000 / 1000 LR 1000 mL Inj 1,000 ML @ 30 0 / 0 mls/hr IV.CONT .Q24H ONE Rx#: [id number] NS Inj 1,000 ML @ 84 mls/hr IV. 1000 / 1000 CONT .[id number] ON LICENSE OF [facility] Rx#:[id number] Vancomycin Inj 1,000 MG In NS 250 / 250 Inj 250 ML @ 250 mls/hr IV.SIG ONCE ONE Rx#:[id number] Vancomycin Inj 1,500 MG In NS 1030 / 1030 Inj 500 ML @ 250 mls/hr IV.SIG Q12H ON LICENSE OF [facility] Rx#:[id number] Oral 442 / 442 Anesthesia Amount 800 / 800 Other 672 / 672 Output: Urine 500 / 500 Estimated Blood Loss 75 / 75 Other: Other Intake Source Saline Solution Date of Last Bowel Movement 11/01/07 10/29/17 - Constitutional no acute distress, thin, chronically ill appearing - Routine HEENT Exam Head: Present: normocephalic, atraumatic Eye: Present: EOMI, PERRL ENT: Present: mucous membranes dry, oropharynx clear - Routine Neck Exam Present: supple, full ROM - Routine Respiratory Exam Present: decreased breath sounds, CTA bilaterally - Routine Cardiovascular Exam Present: RRR, S1, S2 Comments: no murmurs rubs gallops - Routine Abdominal Exam Present: soft, normoactive bowel sounds, distended (markedly, tight) Comments: pt has tight ascites on exam not tender no organomegaly or masses - Routine Extremities Exam Comments: no cyanosis, clubbing, no edema - Routine Skin Exam Present: intact, dry, warm - Routine Neurological Exam Present: alert, oriented X3, CN II-XII intact, moving all extremities, vision grossly intact, hearing grossly intact, normal speech - Routine Psychiatric Exam Present: normal affect, cooperative Results - Labs CBC & Chem 7: 11/02/17 07:35 11/02/17 07:35 Labs: Laboratory Results - last 24 hr 11/02/17 11/02/17 11/02/17 06:13 07:35 07:35 WBC 4.3 RBC 4.21 L Hgb 13.1 Hct 39.7 MCV 94.1 MCH 31.1 MCHC 33.1 RDW 13.6 Plt Count 128 L D MPV 8.1 Neut % (Auto) 69.0 Lymph % (Auto) 19.9 [place] % (Auto) 10.9 H Eos % (Auto) 0.0 Baso % (Auto) 0.2 Neut # (Auto) 3.0 Lymph # (Auto) 0.9 L [place] # (Auto) 0.5 Eos # (Auto) 0.0 Baso # (Auto) 0.0 WBC Differential . Differential Comment Auto diff final Sodium 133 L Potassium 4.2 Chloride 98 Carbon Dioxide 26.4 Anion Gap 9 BUN 7 Creatinine 0.53 L Estimated GFR Greater than 89 Random Glucose 120 H Calcium 7.5 L Total Bilirubin 0.8 AST 45 H ALT 17 Alkaline Phosphatase 167 H Total Protein 6.3 L D Albumin 2.2 L Urine Color Sarah Beth Urine Clarity Hazy H Urine pH 5.0 Ur Specific [place] 1.025 Urine Protein Negative Urine Glucose (UA) Negative Urine Ketones Trace H Urine Occult Blood Negative Urine Nitrate Negative Urine Bilirubin Negative Urine Urobilinogen 4 or greater Ur Leukocyte Esterase Negative Urine RBC 2 Urine WBC 2 Urine Bacteria Rare H Hyaline Casts 3 Urine Mucus Few H Micro UA Comment Culture not ind Ur Microscopic Review Not Reportable Urine Culture Comments Culture not ind Vancomycin Trough 11/02/17 13:00 WBC RBC Hgb Hct MCV MCH MCHC RDW Plt Count MPV Neut % (Auto) Lymph % (Auto) [place] % (Auto) Eos % (Auto) Baso % (Auto) Neut # (Auto) Lymph # (Auto) [place] # (Auto) Eos # (Auto) Baso # (Auto) WBC Differential Differential Comment Sodium Potassium Chloride Carbon Dioxide Anion Gap BUN Creatinine Estimated GFR Random Glucose Calcium Total Bilirubin AST ALT Alkaline Phosphatase Total Protein Albumin Urine Color Urine Clarity Urine pH Ur Specific [place] Urine Protein Urine Glucose (UA) Urine Ketones Urine Occult Blood Urine Nitrate Urine Bilirubin Urine Urobilinogen Ur Leukocyte Esterase Urine RBC Urine WBC Urine Bacteria Hyaline Casts Urine Mucus Micro UA Comment Ur Microscopic Review Urine Culture Comments Vancomycin Trough 13.3 H - Imaging Impressions Humerus MRI 11/01/17 00:00 CONCLUSION: 1. Inconclusive exam as above. Humerus MRI 11/01/17 00:00 CONCLUSION: 1. Inconclusive exam as above. Abdomen/Pelvis CT 11/01/17 03:46 CONCLUSION: 1. Hepatosplenomegaly without focal lesion. 2. Marked ascites. 3. Segmental right lower lung consolidation and small left pleural effusion. Chest X-Ray 11/01/17 03:46 CONCLUSION: Small opacity in the lower lateral right lung may represent an infiltrate or platelike atelectasis. Head CT 11/01/17 03:46 CONCLUSION: 1. Mild central and cortical atrophy. 2. No acute findings in the brain. 3. Mild bilateral maxillary sinus mucosal thickening. . Humerus CT 11/01/17 03:46 CONCLUSION: 1. There is no evidence of bony fusion across the displaced, angulated, and spiral fracture of the proximal humerus. 2. There is a cutaneous defect adjacent to the distal aspect of the proximal fracture fragment suggesting that the fracture is either an open fracture or there is a sinus tract. A cutaneous defect is located approximately 7 cm distal to the main fracture lucency and laterally in the mid arm. Humerus X-Ray 11/01/17 03:46 CONCLUSION: There is no bridging callus across the displaced and angulated spiral fracture of the proximal shaft of the humerus. There is also a nondisplaced hairline fracture line which extends into the greater tuberosity. Assessment and Plan - Plan sp L humerus spiral fracture, failure to heal and sinus tract formation possibly osteo? positive culture 1/2 cw skin tea contamination - no prior abx use ETOHism Ascitis from liver cirrhosis cont vancomycin for now fu clx, including AFB will dw Dr Salinas
[2017-11-02] MEDS ORDERED: Albumin Human 25% Inj 250 ML IV.SIG ONE ×2 (18:00→20:00)
--- NOTE | 2017-11-02 19:58 | US ---
EXAM DATE: 11/02/2017 5:42 PM EDT AGE/SEX: 52 years / Male INDICATIONS: Ascites. CLINICAL DATA: This is the patient's initial encounter. Patient reports that signs and symptoms have been present for 1 day and indicates a pain score of 5/10. MEDICAL/SURGICAL HISTORY: . Cirrhosis. Alcohol abuse. Hypertension. Smoker. . Humerus fract ure. COMPAR[place]: [facility] [place] PELVIS W CONTRAST, 11/01/2017. . FLUID: Total volume of 9800 cc of clear, green fluid was removed. Fluid was discarded. Paracentesis was ther apeutic only. . . TECHNIQUE: Ultrasound guidance for abdominal paracentesis. Paracentesis. The risks, benefits, and alternatives to ultrasound guided paracentesis were explained to the patient in detail including the risk of bleeding and infection. Written and verbal informed consent was obt ained. With the patient on the ultrasound table, ultrasound imaging was used to select the most appropriate approach for paracentesis. Overlying skin was prepped and draped in the usual sterile fashion and wi th a local anesthetic, a dermatotomy was made with an 11 blade scalpel. A 6 Yi [id number] ca theter was introduced into the peritoneal cavity and fluid was collected. Post procedure scanning reveals no hematoma or other complication. The patient tolerated the procedu re well and left the ultrasound suite in stable condition. CONCLUSION: Ultrasound-guided abdominal paracentesis as above. Electronically signed by: Mitch Barksdale MD 11/02/2017 7:57 PM EDT
--- NOTE | 2017-11-02 21:59 | P.PNOP ---
Subjective Interval history: The patient is resting comfortably in bed in no acute distress. The patient had multiple questions regarding surgery which I took time to address. The patient states his pain is well controlled with pain medication. Physical Exam Vital signs: Vital Signs 11/02/17 00:00 11/02/17 04:00 11/02/17 04:14 Temperature 97.9 F 97.6 F Pulse Rate 89 84 Respiratory Rate 18 18 18 Blood Pressure 118/83 118/81 Pulse Oximetry 95 95 11/02/17 08:00 11/02/17 09:00 11/02/17 12:00 Temperature 97.7 F 98.0 F Pulse Rate 92 H 92 H 94 H Respiratory Rate 18 12 Blood Pressure 116/77 111/74 Pulse Oximetry 94 L 94 L 11/02/17 15:43 11/02/17 16:00 Temperature 97.9 F Pulse Rate 88 Respiratory Rate 14 Blood Pressure 131/70 Pulse Oximetry 94 L 94 L Intake & Output 11/02/17 11/02/17 11/03/17 06:59 18:59 06:59 Intake Total 2944 / 2944 1200 / 1200 220 / 220 Output Total 575 / 575 Balance 2369 / 2369 1200 / 1200 220 / 220 Weight 89.2 kg Intake: IV 1030 / 1030 1200 / 1200 220 / 220 LR 1000 mL Inj 1,000 ML @ 30 0 / 0 mls/hr IV.CONT .Q24H [facility] Rx#: [id number] NS Inj 1,000 ML @ 84 mls/hr IV. 1000 / 1000 CONT .[id number] [facility] Rx#:[id number] Vancomycin Inj 1,500 MG In NS 1030 / 1030 200 / 200 220 / 220 Inj 500 ML @ 250 mls/hr IV.SIG Q12H [facility] Rx#:[id number] Oral 442 / 442 Anesthesia Amount 800 / 800 Other 672 / 672 Output: Urine 500 / 500 Estimated Blood Loss 75 / 75 Other: Other Intake Source Saline Solution Date of Last Bowel Movement 11/01/07 10/29/17 Narrative: The patient's dressing is clean, dry, and intact. The patient has good sensation to light touch distally. EPL, APB, PIPPA are intact. 2 + radial pulse. No ecchymosis to upper arm. Sling is intact. Intraoperative culture shows no growth in 24 hours. Results - Labs CBC & Chem 7: 11/02/17 07:35 11/02/17 07:35 Laboratory Results - last 24 hr 11/02/17 11/02/17 11/02/17 06:13 07:35 07:35 WBC 4.3 RBC 4.21 L Hgb 13.1 Hct 39.7 MCV 94.1 MCH 31.1 MCHC 33.1 RDW 13.6 Plt Count 128 L D MPV 8.1 Neut % (Auto) 69.0 Lymph % (Auto) 19.9 [place]atte % (Auto) 10.9 H Eos % (Auto) 0.0 Baso % (Auto) 0.2 Neut # (Auto) 3.0 Lymph # (Auto) 0.9 L [place] # (Auto) 0.5 Eos # (Auto) 0.0 Baso # (Auto) 0.0 WBC Differential . Differential Comment Auto diff final Sodium 133 L Potassium 4.2 Chloride 98 Carbon Dioxide 26.4 Anion Gap 9 BUN 7 Creatinine 0.53 L Estimated GFR Greater than 89 Random Glucose 120 H Calcium 7.5 L Total Bilirubin 0.8 AST 45 H ALT 17 Alkaline Phosphatase 167 H Total Protein 6.3 L D Albumin 2.2 L Urine Color Sarah Beth Urine Clarity Hazy H Urine pH 5.0 Ur Specific [place] 1.025 Urine Protein Negative Urine Glucose (UA) Negative Urine Ketones Trace H Urine Occult Blood Negative Urine Nitrate Negative Urine Bilirubin Negative Urine Urobilinogen 4 or greater Ur Leukocyte Esterase Negative Urine RBC 2 Urine WBC 2 Urine Bacteria Rare H Hyaline Casts 3 Urine Mucus Few H Micro UA Comment Culture not ind Ur Microscopic Review Not Reportable Urine Culture Comments Culture not ind Vancomycin Trough 11/02/17 13:00 WBC RBC Hgb Hct MCV MCH MCHC RDW Plt Count MPV Neut % (Auto) Lymph % (Auto) [place]atte % (Auto) Eos % (Auto) Baso % (Auto) Neut # (Auto) Lymph # (Auto) [place]atte # (Auto) Eos # (Auto) Baso # (Auto) WBC Differential Differential Comment Sodium Potassium Chloride Carbon Dioxide Anion Gap BUN Creatinine Estimated GFR Random Glucose Calcium Total Bilirubin AST ALT Alkaline Phosphatase Total Protein Albumin Urine Color Urine Clarity Urine pH Ur Specific [place] Urine Protein Urine Glucose (UA) Urine Ketones Urine Occult Blood Urine Nitrate Urine Bilirubin Urine Urobilinogen Ur Leukocyte Esterase Urine RBC Urine WBC Urine Bacteria Hyaline Casts Urine Mucus Micro UA Comment Ur Microscopic Review Urine Culture Comments Vancomycin Trough 13.3 H Microbiology 11/01/17 19:18 Tissue - Arm Gram Stain - Final 11/01/17 19:18 Tissue - Arm Wound Culture - Preliminary No growth in 24 hours 11/01/17 04:10 Wound - Arm Gram Stain - Final 11/01/17 04:10 Wound - Arm Wound Culture - Preliminary 11/01/17 04:05 Blood - Peripheral Aerobic Blood Culture - Preliminary No growth in 1 day 11/01/17 04:05 Blood - Peripheral Anaerobic Blood Culture - Preliminary No growth in 1 day 11/01/17 04:10 Blood - Peripheral Aerobic Blood Culture - Preliminary No growth in 1 day 11/01/17 04:10 Blood - Peripheral Anaerobic Blood Culture - Preliminary No growth in 1 day 11/01/17 19:18 Tissue - Arm Fungal Smear - Final No fungal elements seen - Imaging Impressions Paracentesis Ultrasound 11/02/17 00:00 CONCLUSION: Ultrasound-guided abdominal paracentesis as above. Assessment and Plan - Assessment and Plan 52-year-old noncompliant gentleman with a proximal third humeral shaft fracture , now with open humerus fracture, POD#1 s/p I&D and placement dissolvable antibiotic beads 1. NWB LUE in sling and swathe 2. Intraop cultures obtained. No growth in 24 hours. 3. Continue abx per ID/Medicine 4. Patient may be discharged home with follow-up in 2 weeks once antibiotics are arranged
[2017-11-03] MEDS: Sod Chloride 0.9% Inj 1,000 ML IV.CONT SCH ×3 (01:40→23:40)
[2017-11-03] MEDS: Vancomycin Inj 1,500 MG in Sodium Chlor 0.9% Inj 500 ML IV.SIG SCH ×2 (02:25→16:22)
[2017-11-03] MEDS: Morphine Inj 4 MG/ML Vial IV.PUSH PRN ×3 (08:29→21:23)
[2017-11-03] MEDS: Folic Acid 1 MG Tablet PO SCH (08:31)
--- NOTE | 2017-11-03 09:49 | P.PNOP ---
Subjective Interval history: No new complaints as far as the left arm is concerned. the patient's is at the bedside. Physical Exam Vital signs: Vital Signs 11/02/17 12:00 11/02/17 15:43 11/02/17 16:00 Temperature 98.0 F 97.9 F Pulse Rate 94 H 88 Respiratory Rate 12 14 Blood Pressure 111/74 131/70 Pulse Oximetry 94 L 94 L 94 L 11/02/17 20:00 11/03/17 00:00 11/03/17 04:00 Temperature 98.1 F 98.3 F 99.2 F Pulse Rate 89 88 82 Respiratory Rate 18 18 18 Blood Pressure 112/58 L 110/56 L 107/68 Pulse Oximetry 96 94 L 95 11/03/17 08:39 11/03/17 09:00 Temperature 98.3 F Pulse Rate 90 Respiratory Rate 18 Blood Pressure 100/58 L Pulse Oximetry 93 L 93 L Intake & Output 11/02/17 11/03/17 11/03/17 18:59 06:59 18:59 Intake Total 1200 / 1200 1080 / 1080 Balance 1200 / 1200 1080 / 1080 Intake: IV 1200 / 1200 1080 / 1080 NS Inj 1,000 ML @ 84 mls/hr IV. 1000 / 1000 CONT .[id number] [facility] Rx#:[id number] Flexbumin 25% Inj 250 ML @ 60 250 / 250 mls/hr IV.SIG ONCE ONE Rx#: [id number] Vancomycin Inj 1,500 MG In NS 200 / 200 830 / 830 Inj 500 ML @ 250 mls/hr IV.SIG Q12H [facility] Rx#:[id number] Other: Date of Last Bowel Movement 10/29/17 10/29/17 Narrative: The patient's dressing is clean, dry, and intact. The patient has good sensation to light touch distally. No ecchymosis to upper arm. Sling is intact. Intraoperative culture shows no growth to date. Results - Labs CBC & Chem 7: 11/02/17 07:35 11/02/17 07:35 Laboratory Results - last 24 hr 11/02/17 13:00 Vancomycin Trough 13.3 H Microbiology 11/01/17 04:10 Wound - Arm Gram Stain - Final 11/01/17 04:10 Wound - Arm Wound Culture - Final 11/01/17 19:18 Tissue - Arm Gram Stain - Final 11/01/17 19:18 Tissue - Arm Wound Culture - Preliminary No growth in 24 hours 11/01/17 04:05 Blood - Peripheral Aerobic Blood Culture - Preliminary No growth in 1 day 11/01/17 04:05 Blood - Peripheral Anaerobic Blood Culture - Preliminary No growth in 1 day 11/01/17 04:10 Blood - Peripheral Aerobic Blood Culture - Preliminary No growth in 1 day 11/01/17 04:10 Blood - Peripheral Anaerobic Blood Culture - Preliminary No growth in 1 day 11/01/17 19:18 Tissue - Arm Fungal Smear - Final No fungal elements seen - Imaging Impressions Paracentesis Ultrasound 11/02/17 00:00 CONCLUSION: Ultrasound-guided abdominal paracentesis as above. Assessment and Plan - Assessment and Plan 52-year-old noncompliant gentleman with a proximal third humeral shaft fracture , now with open humerus fracture, POD#2 s/p I&D and placement dissolvable antibiotic beads 1. NWB LUE in sling and swathe 2. Intraop cultures obtained. No growth to date. 3. Continue abx per ID/Medicine 4. Patient may be discharged home with follow-up in 2 weeks once antibiotics are arranged
--- NOTE | 2017-11-03 10:58 | P.PNIM ---
Subjective Interval history: f/u; right arm infection/ cirrhosis in no distress. feels better today with less abdominal pain/pressure. no fever. Physical Exam Vital signs: Vital Signs 11/02/17 12:00 11/02/17 15:43 11/02/17 16:00 Temperature 98.0 F 97.9 F Pulse Rate 94 H 88 Respiratory Rate 12 14 Blood Pressure 111/74 131/70 Pulse Oximetry 94 L 94 L 94 L 11/02/17 20:00 11/03/17 00:00 11/03/17 04:00 Temperature 98.1 F 98.3 F 99.2 F Pulse Rate 89 88 82 Respiratory Rate 18 18 18 Blood Pressure 112/58 L 110/56 L 107/68 Pulse Oximetry 96 94 L 95 11/03/17 08:39 11/03/17 09:00 Temperature 98.3 F Pulse Rate 90 Respiratory Rate 18 Blood Pressure 100/58 L Pulse Oximetry 93 L 93 L Intake & Output 11/02/17 11/03/17 11/03/17 18:59 06:59 18:59 Intake Total 1200 / 1200 1080 / 1080 240 / 240 Balance 1200 / 1200 1080 / 1080 240 / 240 Intake: IV 1200 / 1200 1080 / 1080 NS Inj 1,000 ML @ 84 mls/hr IV. 1000 / 1000 CONT .[id number] [facility] Rx#:[id number] Flexbumin 25% Inj 250 ML @ 60 250 / 250 mls/hr IV.SIG ONCE ONE Rx#: [id number] Vancomycin Inj 1,500 MG In NS 200 / 200 830 / 830 Inj 500 ML @ 250 mls/hr IV.SIG Q12H [facility] Rx#:[id number] Oral 240 / 240 Other: Date of Last Bowel Movement 10/29/17 10/29/17 - Constitutional no acute distress - Routine Respiratory Exam Present: CTA bilaterally - Routine Cardiovascular Exam Present: RRR - Routine Abdominal Exam Present: soft, distended (distention improved.) - Routine Extremities Exam Comments: no pedal edema. - Routine Neurological Exam Present: alert, oriented X3 Results - Labs CBC & Chem 7: 11/02/17 07:35 11/02/17 07:35 Laboratory Results - last 24 hr 11/02/17 13:00 Vancomycin Trough 13.3 H Microbiology 11/01/17 19:18 Tissue - Arm Gram Stain - Final 11/01/17 19:18 Tissue - Arm Wound Culture - Preliminary No growth in 48 hours 11/01/17 04:10 Wound - Arm Gram Stain - Final 11/01/17 04:10 Wound - Arm Wound Culture - Final 11/01/17 04:05 Blood - Peripheral Aerobic Blood Culture - Preliminary No growth in 1 day 11/01/17 04:05 Blood - Peripheral Anaerobic Blood Culture - Preliminary No growth in 1 day 11/01/17 04:10 Blood - Peripheral Aerobic Blood Culture - Preliminary No growth in 1 day 11/01/17 04:10 Blood - Peripheral Anaerobic Blood Culture - Preliminary No growth in 1 day 11/01/17 19:18 Tissue - Arm Fungal Smear - Final No fungal elements seen - Imaging Impressions Paracentesis Ultrasound 11/02/17 00:00 CONCLUSION: Ultrasound-guided abdominal paracentesis as above. Assessment and Plan - Assessment (1) Fracture of humerus with nonunion Code(s): S42.309K - Unspecified fracture of shaft of humerus, unspecified arm, subsequent encounter for fracture with nonunion Status: Acute (2) Open fracture of humerus with nonunion Code(s): S42.309K - Unspecified fracture of shaft of humerus, unspecified arm, subsequent encounter for fracture with nonunion Status: Acute (3) Cirrhosis Code(s): K74.60 - Unspecified cirrhosis of liver Status: Acute - Plan 52-year-old male admitted secondary to nonunion humerus fracture now with a fistula and drainage. Nonunion of the humerus fracture Fistula/sinus with drainage over fracture site Orthopedic consult appreciated and s/p I/D continue Vancomycin follow the cultures consult ID to assist with antibiotic regimen PRN pain treatments Cirrhosis- alcohol induced. s/p paracentesis with removal of about 9800 of fluid Avoid toxins Avoid alcohol; counselled on drinking cessation. History of alcoholism Follow for any withdrawal CIWA protocol Folic acid Thiamine Follow for DTs Hypertension Continue baseline treatment Follow blood pressures Adjust treatments as needed DVT prophylaxis SCDs consult PT. Discharge Planning: awaiting ID recommendations/ pending PT evaluation.
[2017-11-03] MEDS: LORazepam 1 MG Tablet PO PRN ×2 (14:20→21:22)
[2017-11-04] MEDS: Morphine Inj 4 MG/ML Vial IV.PUSH PRN ×2 (02:03→08:40)
[2017-11-04] MEDS: Vancomycin Inj 1,500 MG in Sodium Chlor 0.9% Inj 500 ML IV.SIG SCH ×2 (04:17→16:23)
[2017-11-04] MEDS: Folic Acid 1 MG Tablet PO SCH (08:40)
[2017-11-04] MEDS: LORazepam 1 MG Tablet PO PRN ×3 (08:40→22:53)
--- NOTE | 2017-11-04 08:44 | P.OP ---
Date of procedure: 11/01/17 Procedure: 1. Irrigation and debridement left arm including skin, subcutaneous tissue, and bone at site of an open fracture 2. Insertion of antibiotic beads Implants: Stimulan, antibiotic-delivery beads Anesthesia: LUKASZA Surgeon: Jo Salinas MD Estimated blood loss (mL): 75 Pathology: other (multiple cultures including bone and soft tissue sent to microbiology and pathology) Operation and Findings: Indications for procedure:52-year-old noncompliant gentleman with a proximal third humeral shaft fracture who continues to be noncompliant with recommendations. He continues to drink to excess with recurrent and frequent falls. In addition, he continues to remove his splint at home. He continues to smoke as well. At this time, I believe he has had an open wound for at least 1-2 weeks although this is indeterminate as both him and his girlfriend are poor historians as to when this occurred. However, patient's girlfriend did call our office approximately 1-1/2 weeks ago with concern for bone protrusion from the skin and was instructed to immediately present to the emergency department. Again patient did not follow instructions and I received another call last night regarding this. Patient was instructed to present to the emergency department again and this time he did follow instructions. I discussed with the patient and his girlfriend given the nature of the open injury at this time, I would recommend surgical intervention. However, given his noncompliance, his liver cirrhosis, and current concern for infection, I would not recommend any fixation at this time. I would recommend irrigation and debridement of the now open fracture site. I discussed with the patient that he may require further surgery in the future should he have recurrent infection or should he develop a nonunion. However, I do not believe hardware placement at this time is appropriate given the concern for infection. Patient has consented to the above-mentioned procedure. Description of procedure: Patient was brought back to the operating room and placed supine on operating room table with all bony prominences well-padded. General anesthesia then ensued. Patient's left arm was then prepped and draped in standard sterile fashion. Preoperative antibiotics had already been given as patient was on scheduled antibiotics upon admission. A timeout was performed to identify the correct patient, side, site and procedure to be performed. An approximately 3 inch incision was then made over the sinus tract/ open wound with ellipsing of the sinus tract. Sharp dissection was made through the skin and subcutaneous tissue with bipolar electrocautery. Immediately encountered in this wound was a fragment of bone. Multiple cultures were taken and this fragment of bone removed with the use of San. This bone was sent to pathology to evaluate for osteomyelitis. The muscle, bone , subcutaneous tissue and skin was then debrided sharply with scalpel, curettes , and San. This wound was thoroughly irrigated with normal saline laden with gentamicin. At this point, there is no gross signs of infection. Antibiotic beads, Stimulan, were then made on the back table with 1 g of vancomycin added. These were allowed to fully harden and then was inserted into the wound to allow for delayed antibiotic delivery locally. The deep tissue was then closed with PDS sutures and the skin closed with nylon. Sterile dressings were applied. Patient was awoken from general anesthesia without complication. Disposition: Patient will be nonweightbearing to left upper extremity in a sling and swath.
[2017-11-04] MEDS: Sod Chloride 0.9% Inj 1,000 ML IV.CONT SCH (11:44)
--- NOTE | 2017-11-04 12:02 | P.PNIM ---
Subjective Interval history: in no acute distress. looks and feels comfortable. pain is controlled. no fever. Physical Exam Vital signs: Vital Signs 11/03/17 16:00 11/03/17 19:48 11/03/17 20:00 Temperature 98 F 98.1 F Pulse Rate 82 98 H 90 Respiratory Rate 18 Blood Pressure 123/74 105/64 Pulse Oximetry 94 L 95 11/04/17 00:00 11/04/17 04:00 11/04/17 08:00 Temperature 98.3 F 98 F 97.5 F L Pulse Rate 75 77 79 Respiratory Rate 18 18 18 Blood Pressure 111/64 120/85 130/91 H Pulse Oximetry 94 L 96 96 11/04/17 09:58 11/04/17 11:32 Temperature Pulse Rate Respiratory Rate 16 Blood Pressure Pulse Oximetry 92 L Intake & Output 11/03/17 11/04/17 11/04/17 18:59 06:59 18:59 Intake Total 1735 / 1735 500 / 500 Balance 1735 / 1735 500 / 500 Weight 89.2 kg Intake: IV 1015 / 1015 500 / 500 NS Inj 1,000 ML @ 84 mls/hr IV. 500 / 500 500 / 500 CONT .[id number] [facility] Rx#:[id number] Vancomycin Inj 1,500 MG In NS 515 / 515 Inj 500 ML @ 250 mls/hr IV.SIG Q12H [facility] Rx#:[id number] Oral 720 / 720 Other: # Voids 3 2 Date of Last Bowel Movement 10/29/17 10/31/17 10/31/17 - Constitutional no acute distress - Routine Respiratory Exam Present: CTA bilaterally - Routine Cardiovascular Exam Present: RRR - Routine Abdominal Exam Present: soft - Routine Extremities Exam Comments: left shoulder in sling. - Routine Neurological Exam Present: alert, oriented X3 Results - Labs CBC & Chem 7: 11/02/17 07:35 11/02/17 07:35 Microbiology 11/01/17 04:05 Blood - Peripheral Aerobic Blood Culture - Preliminary No growth in 3 days 11/01/17 04:05 Blood - Peripheral Anaerobic Blood Culture - Preliminary No growth in 3 days 11/01/17 04:10 Blood - Peripheral Aerobic Blood Culture - Preliminary No growth in 3 days 11/01/17 04:10 Blood - Peripheral Anaerobic Blood Culture - Preliminary No growth in 3 days 11/01/17 19:18 Tissue - Arm Gram Stain - Final 11/01/17 19:18 Tissue - Arm Wound Culture - Final No growth in 72 hours (aerobically and anaerobically ) 11/01/17 19:18 Tissue - Arm Acid Fast Bacilli Smear - Final No acid fast bacilli seen 11/01/17 04:10 Wound - Arm Gram Stain - Final 11/01/17 04:10 Wound - Arm Wound Culture - Final Assessment and Plan - Assessment (1) Fracture of humerus with nonunion Code(s): S42.309K - Unspecified fracture of shaft of humerus, unspecified arm, subsequent encounter for fracture with nonunion Status: Acute (2) Open fracture of humerus with nonunion Code(s): S42.309K - Unspecified fracture of shaft of humerus, unspecified arm, subsequent encounter for fracture with nonunion Status: Acute (3) Cirrhosis Code(s): K74.60 - Unspecified cirrhosis of liver Status: Acute - Plan 52-year-old male admitted secondary to nonunion humerus fracture now with a fistula and drainage. Nonunion of the humerus fracture Fistula/sinus with drainage over fracture site Orthopedic consult appreciated ; s/p Irrigation and debridement left arm including skin, subcutaneous tissue , and bone at site of an open fracture and Insertion of antibiotic beads. continue Vancomycin follow the cultures consulted ID to assist with antibiotic regimen PRN pain treatments Cirrhosis- alcohol induced. s/p paracentesis with removal of about 9800 of fluid Avoid toxins Avoid alcohol; counselled on drinking cessation. History of alcoholism Follow for any withdrawal CIWA protocol Folic acid Thiamine Follow for DTs Hypertension Continue baseline treatment Follow blood pressures Adjust treatments as needed DVT prophylaxis SCDs consulted PT. Discharge Planning: dc home when cleared by ID.
[2017-11-05] MEDS: Vancomycin Inj 1,500 MG in Sodium Chlor 0.9% Inj 500 ML IV.SIG SCH ×2 (04:43→15:07)
--- NOTE | 2017-11-05 07:40 | P.PN ---
Subjective Interval history: Follow-up on patient status post I&D left upper extremity, questionable osteomyelitis. Patient seen and examined. Patient denies any acute medical complaints. States the pain in the left arm is well controlled. He denies any fever or chills. Physical Exam Vital signs: Vital Signs 11/04/17 08:00 11/04/17 09:58 11/04/17 11:32 Temperature 97.5 F L Pulse Rate 79 Respiratory Rate 18 16 Blood Pressure 130/91 H Pulse Oximetry 96 92 L 11/04/17 12:00 11/04/17 14:21 11/04/17 16:00 Temperature 97.9 F 98.2 F Pulse Rate 72 87 Respiratory Rate 18 14 18 Blood Pressure 103/61 131/88 Pulse Oximetry 96 97 11/04/17 18:32 11/04/17 19:50 11/04/17 20:00 Temperature 98.5 F Pulse Rate 80 78 Respiratory Rate 14 16 Blood Pressure 124/87 Pulse Oximetry 95 95 11/05/17 00:18 11/05/17 00:46 11/05/17 04:40 Temperature 98.5 F 98.0 F Pulse Rate 80 84 79 Respiratory Rate 18 18 Blood Pressure 125/86 122/85 Pulse Oximetry 95 95 11/05/17 06:24 Temperature Pulse Rate Respiratory Rate 18 Blood Pressure Pulse Oximetry Intake & Output 11/04/17 11/05/17 11/05/17 18:59 06:59 18:59 Intake Total 2029 740 / 740 Output Total 560 / 560 Balance 2029 180 / 180 Weight 92 kg Intake: IV 2029 NS Inj 1,000 ML @ 84 mls/hr IV. 1000 / 1000 CONT .[id number] [facility] Rx#:[id number] Vancomycin Inj 1,500 MG In NS 1030 / 1030 Inj 500 ML @ 250 mls/hr IV.SIG Q12H [facility] Rx#:[id number] Oral 740 / 740 Output: Urine 560 / 560 Other: Date of Last Bowel Movement 10/31/17 11/04/17 11/04/17 Narrative: GENERAL: Thin WDWN male patient, INAD. Awake and alert. Sitting up on side of bed eating breakfast. Girlfriend is at the bedside. SKIN: Warm and dry. HEAD: Atraumatic. Normocephalic. EYES: Pupils equal and round. No scleral icterus. No injection or drainage. ENT: No nasal bleeding or discharge. Mucous membranes pink and moist. NECK: Trachea midline. CARDIOVASCULAR: Regular rate and rhythm. RESPIRATORY: No accessory muscle use. Clear to auscultation. Breath sounds equal bilaterally. GASTROINTESTINAL: Abdomen soft, non-tender, +distended. MUSCULOSKELETAL: Extremities without clubbing, cyanosis, or edema. LUE in sling , dressed in SAMARIA wrap. NV intact distal LUE. NEUROLOGICAL: Awake and alert. No obvious cranial nerve deficits. Motor grossly within normal limits. Able to move all extremities spontaneously. Normal speech. PSYCHIATRIC: Appropriate mood and affect. Results - Labs CBC & Chem 7: 11/05/17 07:41 11/05/17 07:41 Microbiology 11/01/17 04:05 Blood - Peripheral Aerobic Blood Culture - Preliminary No growth in 3 days 11/01/17 04:05 Blood - Peripheral Anaerobic Blood Culture - Preliminary No growth in 3 days 11/01/17 04:10 Blood - Peripheral Aerobic Blood Culture - Preliminary No growth in 3 days 11/01/17 04:10 Blood - Peripheral Anaerobic Blood Culture - Preliminary No growth in 3 days 11/01/17 19:18 Tissue - Arm Gram Stain - Final 11/01/17 19:18 Tissue - Arm Wound Culture - Final No growth in 72 hours (aerobically and anaerobically ) Assessment and Plan - Assessment (1) Fracture of humerus with nonunion Code(s): S42.309K - Unspecified fracture of shaft of humerus, unspecified arm, subsequent encounter for fracture with nonunion Status: Acute (2) Open fracture of humerus with nonunion Code(s): S42.309K - Unspecified fracture of shaft of humerus, unspecified arm, subsequent encounter for fracture with nonunion Status: Acute (3) Cirrhosis Code(s): K74.60 - Unspecified cirrhosis of liver Status: Acute - Plan 52-year-old male admitted secondary to nonunion humerus fracture now with a fistula and drainage. Nonunion of the humerus fracture Fistula/sinus with drainage over fracture site ? Osteomyelitis Orthopedic consult appreciated. s/p Irrigation and debridement left arm including skin, subcutaneous tissue, and bone at site of an open fracture and Insertion of antibiotic beads. ID following, continue Vancomycin. CX with NGTD. Path pending. consulted ID to assist with antibiotic regimen PRN pain treatments PT recs home with outpatient PT Anemia, mild Thrombocytopenia ?secondary to Vancomycin No e/o active bleeding obtain coag studies Continue to monitor Cirrhosis- alcohol induced s/p paracentesis with removal of about 9800 of fluid Avoid toxins Avoid alcohol; counselled on drinking cessation. History of alcoholism serum alcohol 160 Follow for any evidence of EtOH withdrawal CIWA protocol Folic acid/thiamine daily Hypertension Normotensive off of any antihypertensives Follow blood pressures Adjust treatments as needed DVT prophylaxis SCDs Code Status: FULL Discussed Condition With: Discharge pending ID clearance
[2017-11-05 08:26] LABS: Baso % (Auto) 0.7 % (0.0-2.0); Eos # (Auto) 0.1 th/mm3 (0.0-0.4); Eos % (Auto) 1.9 % (0.0-4.0); Hematocrit 37.8 % (39.0-51.0); Hemoglobin 12.6 gm/dL (13.0-17.0); Lymph # (Auto) 1.6 th/mm3 (1.0-4.8); Lymph % (Auto) 41.1 % (9.0-44.0); Mean Corpuscular HGB Conc 33.2 % (32.0-36.0); Mean Corpuscular Hemoglobin 30.8 pg (27.0-34.0); Mean Corpuscular Volume 92.9 fL (80.0-100.0); Mean Platelet Volume 8.2 fL (7.0-11.0); Mono # (Auto) 0.5 th/mm3 (0.0-0.9); Mono % (Auto) 13.9 % (0.0-8.0); Neut # (Auto) 1.7 th/mm3 (1.8-7.7); Neut % (Auto) 42.4 % (16.0-70.0); Platelet Count 102 th/mm3 (150-450); Red Blood Count 4.07 mil/mm3 (4.50-5.90); Red Cell Distribution Width 13.5 % (11.6-17.2); White Blood Count 3.9 th/mm3 (4.0-11.0)
[2017-11-05] MEDS: LORazepam 1 MG Tablet PO PRN ×3 (08:50→22:14)
[2017-11-05] MEDS: Folic Acid 1 MG Tablet PO SCH (08:50)
[2017-11-05 08:59] LABS: Anion Gap 8 meq/L (5-15); Blood Urea Nitrogen 6 mg/dL (7-18); Carbon Dioxide 27.8 meq/L (21.0-32.0); Chloride 99 meq/L (98-107); Glomerular Filtration Rate Greater Than 89 mL/min (>89); Glucose,Random 89 mg/dL (74-106); Potassium 4.6 meq/L (3.5-5.1); Sodium 135 meq/L (136-145)
--- NOTE | 2017-11-05 14:07 | P.PNID ---
Subjective Remarks: doing OK sp paracenthesis afebrile Antibiotics: vanco Past Medical History: chronic ETOHism Allergies/Adverse Reactions: Allergies No Known Allergies Allergy (Unverified 11/01/17 01:18) Objective Vital Signs 11/04/17 14:21 11/04/17 16:00 11/04/17 18:32 Temperature 98.2 F Pulse Rate 87 Respiratory Rate 14 18 14 Blood Pressure 131/88 Pulse Oximetry 97 11/04/17 19:50 11/04/17 20:00 11/05/17 00:18 Temperature 98.5 F 98.5 F Pulse Rate 80 78 80 Respiratory Rate 16 18 Blood Pressure 124/87 125/86 Pulse Oximetry 95 95 95 11/05/17 00:46 11/05/17 04:40 11/05/17 06:24 Temperature 98.0 F Pulse Rate 84 79 Respiratory Rate 18 18 Blood Pressure 122/85 Pulse Oximetry 95 11/05/17 07:47 11/05/17 07:48 11/05/17 08:00 Temperature 98.4 F Pulse Rate 107 H Respiratory Rate 16 18 Blood Pressure 114/72 Pulse Oximetry 95 94 L 11/05/17 09:34 11/05/17 11:05 11/05/17 12:00 Temperature 97.7 F Pulse Rate 99 H Respiratory Rate 16 18 Blood Pressure 110/71 Pulse Oximetry 97 95 11/05/17 13:39 Temperature Pulse Rate Respiratory Rate 16 Blood Pressure Pulse Oximetry Intake & Output 11/04/17 11/05/17 11/05/17 18:59 06:59 18:59 Intake Total 2029 740 / 740 515 / 515 Output Total 560 / 560 Balance 2029 180 / 180 515 / 515 Weight 92 kg Intake: IV 2029 515 / 515 NS Inj 1,000 ML @ 84 mls/hr IV. 1000 / 1000 CONT .[id number] LE Rx#:[id number] Vancomycin Inj 1,500 MG In NS 1030 / 1030 515 / 515 Inj 500 ML @ 250 mls/hr IV.SIG Q12H LE Rx#:[id number] Oral 740 / 740 Output: Urine 560 / 560 Other: Date of Last Bowel Movement 10/31/17 11/04/17 11/04/17 11/01/17 04:05 Blood - Peripheral Aerobic Blood Culture - Preliminary No growth in 4 days 11/01/17 04:05 Blood - Peripheral Anaerobic Blood Culture - Preliminary No growth in 4 days 11/01/17 04:10 Blood - Peripheral Aerobic Blood Culture - Preliminary No growth in 4 days 11/01/17 04:10 Blood - Peripheral Anaerobic Blood Culture - Preliminary No growth in 4 days 11/01/17 19:18 Tissue - Arm Gram Stain - Final 11/01/17 19:18 Tissue - Arm Wound Culture - Final No growth in 72 hours (aerobically and anaerobically ) 11/01/17 19:18 Tissue - Arm Acid Fast Bacilli Smear - Final No acid fast bacilli seen 11/01/17 19:18 Tissue - Arm Mycobacterial Culture - Pending 11/01/17 04:10 Wound - Arm Gram Stain - Final 11/01/17 04:10 Wound - Arm Wound Culture - Final Lab - Hematology Results 11/05/17 07:41 WBC 3.9 L RBC 4.07 L Hgb 12.6 L Hct 37.8 L MCV 92.9 MCH 30.8 MCHC 33.2 RDW 13.5 Plt Count 102 L MPV 8.2 Neut % (Auto) 42.4 Lymph % (Auto) 41.1 [place] % (Auto) 13.9 H Eos % (Auto) 1.9 Baso % (Auto) 0.7 Neut # (Auto) 1.7 L Lymph # (Auto) 1.6 [place] # (Auto) 0.5 Eos # (Auto) 0.1 Baso # (Auto) 0.0 WBC Differential . Differential Comment Auto diff final Lab - Chemistry Results 11/05/17 07:41 Sodium 135 L Potassium 4.6 Chloride 99 Carbon Dioxide 27.8 Anion Gap 8 BUN 6 L Creatinine 0.54 L Estimated GFR Greater than 89 Random Glucose 89 Calcium 8.0 L Imaging: ITS Impressions Humerus MRI 11/01/17 00:00 CONCLUSION: 1. Inconclusive exam as above. Abdomen/Pelvis CT 11/01/17 03:46 CONCLUSION: 1. Hepatosplenomegaly without focal lesion. 2. Marked ascites. 3. Segmental right lower lung consolidation and small left pleural effusion. Chest X-Ray 11/01/17 03:46 CONCLUSION: Small opacity in the lower lateral right lung may represent an infiltrate or platelike atelectasis. Head CT 11/01/17 03:46 CONCLUSION: 1. Mild central and cortical atrophy. 2. No acute findings in the brain. 3. Mild bilateral maxillary sinus mucosal thickening. . Humerus CT 11/01/17 03:46 CONCLUSION: 1. There is no evidence of bony fusion across the displaced, angulated, and spiral fracture of the proximal humerus. 2. There is a cutaneous defect adjacent to the distal aspect of the proximal fracture fragment suggesting that the fracture is either an open fracture or there is a sinus tract. A cutaneous defect is located approximately 7 cm distal to the main fracture lucency and laterally in the mid arm. Humerus X-Ray 11/01/17 03:46 CONCLUSION: There is no bridging callus across the displaced and angulated spiral fracture of the proximal shaft of the humerus. There is also a nondisplaced hairline fracture line which extends into the greater tuberosity. Paracentesis Ultrasound 11/02/17 00:00 CONCLUSION: Ultrasound-guided abdominal paracentesis as above. Physical Exam: GENERAL: NAD SKIN: Warm and dry. NO rash EYES: Pupils equal and round. No scleral icterus. No injection or drainage. ENT: No nasal bleeding or discharge. Mucous membranes pink and moist. CARDIOVASCULAR: Regular rate and rhythm. RESPIRATORY: No accessory muscle use. Clear to auscultation. Breath sounds equal bilaterally. GASTROINTESTINAL: Abdomen soft, non-tender, markedly distended but not tight as it was. Hepatic and splenic margins not palpable. MUSCULOSKELETAL: Extremities without clubbing, cyanosis, mild BLE edema. LUE in sling, surg dressing fingers free of neurovasc deficit NEUROLOGICAL: Awake and alert. Motor grossly within normal limits. Normal speech. PSYCHIATRIC: Appropriate mood and affect; insight and judgment normal. Assessment and Plan - Plan sp L humerus spiral fracture, failure to heal and sinus tract formation possibly osteo? - bone fragment was encounted furing surgery positive culture 1/2 cw skin tea contamination, 2nd clx was negative - no prior abx use ETOHism Ascitis from liver cirrhosis sp paracenthesis - clear cont vancomycin for now fu clx, including AFB will follow pathology for further abx recx call placed to pathologist
[2017-11-05 14:54] LABS: INR 1.6 Ratio; Prothrombin Time 15.7 sec (9.8-11.6)
--- NOTE | 2017-11-05 14:56 | P.PNADD ---
Addendum to Inpatient Note Reason for Addendum: Additional Documentation (dw Dr Stanley. Acute and chronic osteo. Pt will need intermediate card tender abx. At least 6 weeks IV followed by oral)
[2017-11-06] MEDS ORDERED: Pharmacy Ordered Lab Info OTHER ONE (03:45)
[2017-11-06] MEDS: Vancomycin Inj 1,500 MG in Sodium Chlor 0.9% Inj 500 ML IV.SIG SCH ×2 (04:30→17:04)
[2017-11-06] MEDS: LORazepam 1 MG Tablet PO PRN ×4 (04:30→18:48)
--- NOTE | 2017-11-06 07:34 | P.PN ---
Subjective Interval history: Follow-up on patient status post I&D left upper extremity, osteomyelitis. Patient seen and examined. Patient complaining of abdominal fullness and dull diffuse abdominal ache. He denies any nausea or vomiting. Reports good appetite is tolerating p.o. He denies any fever or chills. He denies any pain in the left arm at this time. Physical Exam Vital signs: Vital Signs 11/05/17 07:47 11/05/17 07:48 11/05/17 08:00 Temperature 98.4 F Pulse Rate 107 H Respiratory Rate 16 18 Blood Pressure 114/72 Pulse Oximetry 95 94 L 11/05/17 09:34 11/05/17 11:05 11/05/17 12:00 Temperature 97.7 F Pulse Rate 99 H Respiratory Rate 16 18 Blood Pressure 110/71 Pulse Oximetry 97 95 11/05/17 13:39 11/05/17 16:00 11/05/17 17:55 Temperature 98.5 F Pulse Rate 74 Respiratory Rate 16 18 16 Blood Pressure 101/63 Pulse Oximetry 95 11/05/17 20:00 11/05/17 23:54 11/06/17 00:00 Temperature 99.2 F 98.8 F Pulse Rate 86 80 94 H Respiratory Rate 16 18 Blood Pressure 133/69 113/69 Pulse Oximetry 95 96 11/06/17 04:00 Temperature 98.4 F Pulse Rate 87 Respiratory Rate 16 Blood Pressure 110/69 Pulse Oximetry 95 Intake & Output 11/05/17 11/06/17 11/06/17 18:59 06:59 18:59 Intake Total 515 / 515 515 / 515 Balance 515 / 515 515 / 515 Intake: IV 515 / 515 515 / 515 Vancomycin Inj 1,500 MG In NS 515 / 515 515 / 515 Inj 500 ML @ 250 mls/hr IV.SIG Q12H [facility] Rx#:[id number] Other: Date of Last Bowel Movement 11/04/17 11/04/17 Narrative: GENERAL: Thin WDWN male patient, INAD. Awake and alert. Sitting up in bedside chair. SKIN: Warm and dry. HEAD: Atraumatic. Normocephalic. EYES: Pupils equal and round. No scleral icterus. No injection or drainage. ENT: No nasal bleeding or discharge. Mucous membranes pink and moist. NECK: Trachea midline. CARDIOVASCULAR: Regular rate and rhythm. RESPIRATORY: No accessory muscle use. Clear to auscultation. Breath sounds equal bilaterally. GASTROINTESTINAL: Abdomen tense, firm, distended. +dullness to percussion. + Fluid wave. MUSCULOSKELETAL: Extremities without clubbing, cyanosis, or edema. LUE dressed in SAMARIA wrap. NV intact distal LUE. NEUROLOGICAL: Awake and alert. No obvious cranial nerve deficits. Motor grossly within normal limits. Able to move all extremities spontaneously. Normal speech. PSYCHIATRIC: Calm and cooperative. Appropriate mood and affect. Results - Labs CBC & Chem 7: 11/06/17 05:50 11/05/17 07:41 Laboratory Results - last 24 hr 11/05/17 11/05/17 11/05/17 07:41 07:41 14:07 WBC 3.9 L RBC 4.07 L Hgb 12.6 L Hct 37.8 L MCV 92.9 MCH 30.8 MCHC 33.2 RDW 13.5 Plt Count 102 L MPV 8.2 Neut % (Auto) 42.4 Lymph % (Auto) 41.1 [place] % (Auto) 13.9 H Eos % (Auto) 1.9 Baso % (Auto) 0.7 Neut # (Auto) 1.7 L Lymph # (Auto) 1.6 [place] # (Auto) 0.5 Eos # (Auto) 0.1 Baso # (Auto) 0.0 WBC Differential . Differential Comment Auto diff final PT 15.7 H INR 1.6 Sodium 135 L Potassium 4.6 Chloride 99 Carbon Dioxide 27.8 Anion Gap 8 BUN 6 L Creatinine 0.54 L Estimated GFR Greater than 89 Random Glucose 89 Calcium 8.0 L Vancomycin Trough 11/06/17 04:00 WBC RBC Hgb Hct MCV MCH MCHC RDW Plt Count MPV Neut % (Auto) Lymph % (Auto) [place] % (Auto) Eos % (Auto) Baso % (Auto) Neut # (Auto) Lymph # (Auto) [place] # (Auto) Eos # (Auto) Baso # (Auto) WBC Differential Differential Comment PT INR Sodium Potassium Chloride Carbon Dioxide Anion Gap BUN Creatinine Estimated GFR Random Glucose Calcium Vancomycin Trough 18.1 H Microbiology 11/01/17 04:05 Blood - Peripheral Aerobic Blood Culture - Preliminary No growth in 4 days 11/01/17 04:05 Blood - Peripheral Anaerobic Blood Culture - Preliminary No growth in 4 days 11/01/17 04:10 Blood - Peripheral Aerobic Blood Culture - Preliminary No growth in 4 days 11/01/17 04:10 Blood - Peripheral Anaerobic Blood Culture - Preliminary No growth in 4 days Assessment and Plan - Assessment (1) Fracture of humerus with nonunion Code(s): S42.309K - Unspecified fracture of shaft of humerus, unspecified arm, subsequent encounter for fracture with nonunion Status: Acute (2) Open fracture of humerus with nonunion Code(s): S42.309K - Unspecified fracture of shaft of humerus, unspecified arm, subsequent encounter for fracture with nonunion Status: Acute (3) Cirrhosis Code(s): K74.60 - Unspecified cirrhosis of liver Status: Acute - Plan 52-year-old male admitted secondary to nonunion humerus fracture now with a fistula and drainage. Nonunion of the humerus fracture Fistula/sinus with drainage over fracture site Osteomyelitis Orthopedic consult appreciated. s/p Irrigation and debridement left arm including skin, subcutaneous tissue, and bone at site of an open fracture and insertion of antibiotic beads. ID following, continue Vancomycin. Path showing acute and chronic osteomyelitis. ID recommending at least 6 weeks of IV antibiotics followed by oral. PRN pain treatments PT recs home with outpatient PT Anemia, mild Thrombocytopenia ?secondary to Vancomycin No e/o active bleeding Continue to monitor Cirrhosis- alcohol induced s/p paracentesis with removal of about 9800 of fluid 11/02. +increasing ascites. Repeat paracentesis ordered. Send fluid for cytology. BP soft 108/66, unlikely to tolerate diuretics. Add on 1800cc fluid restriction. Avoid toxins Avoid alcohol; counselled on drinking cessation. Coagulopathy, suspect due to progression of cirrhosis/liver failure INR trending up, now 1.6 continue to monitor History of alcoholism serum alcohol 160 Follow for any evidence of EtOH withdrawal CIIL protocol Folic acid/thiamine daily Hypertension Normotensive off of any antihypertensives Follow blood pressures Adjust treatments as needed DVT prophylaxis SCDs Code Status: FULL Discussed Condition With: patient, nursing staff, Dr. Stovall
[2017-11-06 08:25] LABS: Baso % (Auto) 0.5 % (0.0-2.0); Eos # (Auto) 0.1 th/mm3 (0.0-0.4); Eos % (Auto) 1.9 % (0.0-4.0); Hematocrit 38.6 % (39.0-51.0); Hemoglobin 12.7 gm/dL (13.0-17.0); Lymph # (Auto) 1.5 th/mm3 (1.0-4.8); Lymph % (Auto) 38.5 % (9.0-44.0); Mean Corpuscular Volume 94.1 fL (80.0-100.0); Mean Platelet Volume 8.8 fL (7.0-11.0); Mono # (Auto) 0.5 th/mm3 (0.0-0.9); Mono % (Auto) 14.1 % (0.0-8.0); Neut # (Auto) 1.7 th/mm3 (1.8-7.7); Platelet Count 109 th/mm3 (150-450); Red Cell Distribution Width 13.4 % (11.6-17.2); White Blood Count 3.8 th/mm3 (4.0-11.0)
[2017-11-06] MEDS: Folic Acid 1 MG Tablet PO SCH (09:27)
[2017-11-06 12:02] LABS: INR 1.5 Ratio; Prothrombin Time 15.3 sec (9.8-11.6)
[2017-11-06 12:47] LABS: Hepatitits B Surface Antigen Nonreactive (Nonreactive)
[2017-11-06 13:17] LABS: Hepatitis A IgM Antibody Nonreactive (Nonreactive)
[2017-11-06] MEDS ORDERED: Albumin Human 25% Inj 200 ML IV.SIG ONE (15:00)
--- NOTE | 2017-11-06 15:51 | US ---
EXAM DATE: 11/06/2017 2:53 PM EDT AGE/SEX: 52 years / Male INDICATIONS: Ascites. CLINICAL DATA: This is the patient's subsequent encounter. Patient reports that signs and symptoms h ave been present for 3 days and indicates a pain score of 4/10. MEDICAL/SURGICAL HISTORY: Hypertension. Cirrhosis. Humerus fracture. None. COMPARISON: [facility] – [place], [place] PARACENTESIS ABD W/IMAGE, 11/02/2017. . FLUID: Total volume of 7800 cc of clear, green fluid was removed. Fluid was sent to lab for ordered studies. . . TECHNIQUE: Ultrasound guidance for abdominal paracentesis. Paracentesis. The risks, benefits, and alternatives to ultrasound guided paracentesis were explained to the patient in detail including the risk of bleeding and infection. Written and verbal informed consent was obt ained. With the patient on the ultrasound table, ultrasound imaging was used to select the most appropriate approach for paracentesis. Overlying skin was prepped and draped in the usual sterile fashion and wi th a local anesthetic, a dermatotomy was made with an 11 blade scalpel. A 6 [place] [id number] ca theter was introduced into the peritoneal cavity and fluid was collected. The patient tolerated the procedure well and left the ultrasound suite in stable condition. CONCLUSION: 1. Uncomplicated diagnostic paracentesis. Electronically signed by: Arnaldo Fenton MD 11/06/2017 3:50 PM EDT
[2017-11-06] MEDS: Nystatin 100,000 UNITS/GM Powder 15 GM Bottle TOPICAL SCH ×2 (18:45→20:19)
[2017-11-07] MEDS: Vancomycin Inj 1,500 MG in Sodium Chlor 0.9% Inj 500 ML IV.SIG SCH ×2 (04:36→15:09)
[2017-11-07 06:36] LABS: Baso % (Auto) 0.6 % (0.0-2.0); Eos # (Auto) 0.1 th/mm3 (0.0-0.4); Eos % (Auto) 1.6 % (0.0-4.0); Hematocrit 37.9 % (39.0-51.0); Hemoglobin 12.9 gm/dL (13.0-17.0); Lymph # (Auto) 1.8 th/mm3 (1.0-4.8); Lymph % (Auto) 36.1 % (9.0-44.0); Mean Corpuscular Hemoglobin 31.3 pg (27.0-34.0); Mean Corpuscular Volume 91.9 fL (80.0-100.0); Mean Platelet Volume 9.3 fL (7.0-11.0); Mono # (Auto) 0.7 th/mm3 (0.0-0.9); Mono % (Auto) 13.3 % (0.0-8.0); Neut # (Auto) 2.4 th/mm3 (1.8-7.7); Neut % (Auto) 48.4 % (16.0-70.0); Platelet Count 116 th/mm3 (150-450); Red Blood Count 4.13 mil/mm3 (4.50-5.90); Red Cell Distribution Width 13.5 % (11.6-17.2); White Blood Count 4.9 th/mm3 (4.0-11.0)
[2017-11-07 07:18] LABS: Anion Gap 8 meq/L (5-15); Blood Urea Nitrogen 8 mg/dL (7-18); Calcium 7.3 mg/dL (8.5-10.1); Carbon Dioxide 27.9 meq/L (21.0-32.0); Chloride 100 meq/L (98-107); Glomerular Filtration Rate Greater Than 89 mL/min (>89); Glucose,Random 88 mg/dL (74-106); Potassium 3.9 meq/L (3.5-5.1); Sodium 136 meq/L (136-145)
[2017-11-07 07:48] LABS: Total Protein 5.6 g/dL (6.4-8.2)
--- NOTE | 2017-11-07 09:01 | P.PN ---
Subjective Interval history: Follow-up on patient status post I&D left upper extremity, osteomyelitis. Patient seen and examined. Patient reports pain is controlled left upper extremity. States that his belly feels much better after the paracentesis. He denies any nausea or vomiting. He denies any abdominal pain. He denies any fever or chills. Physical Exam Vital signs: Vital Signs 11/06/17 10:00 11/06/17 12:00 11/06/17 13:38 Temperature 98.0 F 98.8 F Pulse Rate 66 74 86 Respiratory Rate 18 18 Blood Pressure 109/62 113/78 Pulse Oximetry 94 L 95 11/06/17 16:00 11/06/17 20:00 11/06/17 20:08 Temperature 97.1 F L 97.8 F Pulse Rate 79 78 78 Respiratory Rate 18 18 Blood Pressure 114/63 126/70 Pulse Oximetry 98 97 11/06/17 23:55 11/07/17 00:00 11/07/17 04:00 Temperature 99.9 F H 99.6 F Pulse Rate 88 85 82 Respiratory Rate 18 18 Blood Pressure 101/56 L 97/59 L Pulse Oximetry 96 95 11/07/17 04:23 11/07/17 08:17 Temperature 98.0 F Pulse Rate 82 79 Respiratory Rate 16 Blood Pressure 110/63 101/66 Pulse Oximetry 93 L Intake & Output 11/06/17 11/07/17 11/07/17 18:59 06:59 18:59 Intake Total 515 / 515 715 / 715 Balance 515 / 515 715 / 715 Intake: IV 515 / 515 715 / 715 Flexbumin 25% Inj 200 ML @ 60 200 / 200 mls/hr IV.SIG ONCE ONE Rx#: [id number] Vancomycin Inj 1,500 MG In NS 515 / 515 515 / 515 Inj 500 ML @ 250 mls/hr IV.SIG Q12H [facility] Rx#:[id number] Other: # Voids 4 Date of Last Bowel Movement 11/05/17 11/05/17 Narrative: GENERAL: Thin WDWN male patient. Awake and alert. Sitting up in bedside chair. In no acute distress. SKIN: Warm and dry. HEENT: Atraumatic. Normocephalic. Pupils equal and round. No scleral icterus. No injection or drainage. No nasal bleeding or discharge. Mucous membranes pink and moist. NECK: Trachea midline. CARDIOVASCULAR: Regular rate and rhythm. RESPIRATORY: No accessory muscle use. Clear to auscultation. Breath sounds equal bilaterally. GASTROINTESTINAL: Abdomen soft, nontender, less distended. +BS. MUSCULOSKELETAL: Extremities without clubbing, cyanosis, or edema. LUE dressed in SAMARIA wrap, incision healing well, sutures intact. NV intact distal LUE. NEUROLOGICAL: Awake and alert. No obvious cranial nerve deficits. Motor grossly within normal limits. Able to move all extremities spontaneously. Normal speech. PSYCHIATRIC: Calm and cooperative. Appropriate mood and affect. Results - Labs CBC & Chem 7: 11/07/17 04:58 11/07/17 04:58 Laboratory Results - last 24 hr 11/06/17 11/06/17 11/07/17 11:36 11:36 04:58 WBC RBC Hgb Hct MCV MCH MCHC RDW Plt Count MPV Neut % (Auto) Lymph % (Auto) [place] % (Auto) Eos % (Auto) Baso % (Auto) Neut # (Auto) Lymph # (Auto) [place] # (Auto) Eos # (Auto) Baso # (Auto) WBC Differential Differential Comment PT 15.3 H INR 1.5 Sodium 136 Potassium 3.9 Chloride 100 Carbon Dioxide 27.9 Anion Gap 8 BUN 8 Creatinine 0.60 Estimated GFR Greater than 89 Random Glucose 88 Calcium 7.3 L* Prot Corrected Calcium 8.1 L Total Protein 5.6 L D Hepatitis A IgM Ab Nonreactive Hep Bs Antigen Nonreactive Hep B Core IgM Ab Nonreactive Hep C IgG Ab Nonreactive 11/07/17 04:58 WBC 4.9 RBC 4.13 L Hgb 12.9 L Hct 37.9 L MCV 91.9 MCH 31.3 MCHC 34.0 RDW 13.5 Plt Count 116 L MPV 9.3 Neut % (Auto) 48.4 Lymph % (Auto) 36.1 [place] % (Auto) 13.3 H Eos % (Auto) 1.6 Baso % (Auto) 0.6 Neut # (Auto) 2.4 Lymph # (Auto) 1.8 [place] # (Auto) 0.7 Eos # (Auto) 0.1 Baso # (Auto) 0.0 WBC Differential . Differential Comment Auto diff final PT INR Sodium Potassium Chloride Carbon Dioxide Anion Gap BUN Creatinine Estimated GFR Random Glucose Calcium Prot Corrected Calcium Total Protein Hepatitis A IgM Ab Hep Bs Antigen Hep B Core IgM Ab Hep C IgG Ab Microbiology 11/01/17 04:05 Blood - Peripheral Aerobic Blood Culture - Final No growth in 5 days 11/01/17 04:05 Blood - Peripheral Anaerobic Blood Culture - Final No growth in 5 days 11/01/17 04:10 Blood - Peripheral Aerobic Blood Culture - Final No growth in 5 days 11/01/17 04:10 Blood - Peripheral Anaerobic Blood Culture - Final No growth in 5 days - Imaging Impressions Paracentesis Ultrasound 11/06/17 00:00 CONCLUSION: 1. Uncomplicated diagnostic paracentesis. Assessment and Plan - Assessment (1) Fracture of humerus with nonunion Code(s): S42.309K - Unspecified fracture of shaft of humerus, unspecified arm, subsequent encounter for fracture with nonunion Status: Acute (2) Open fracture of humerus with nonunion Code(s): S42.309K - Unspecified fracture of shaft of humerus, unspecified arm, subsequent encounter for fracture with nonunion Status: Acute (3) Cirrhosis Code(s): K74.60 - Unspecified cirrhosis of liver Status: Acute - Plan 52-year-old male admitted secondary to nonunion humerus fracture now with a fistula and drainage. Nonunion of the humerus fracture Fistula/sinus with drainage over fracture site Osteomyelitis Orthopedic consult appreciated. s/p Irrigation and debridement left arm including skin, subcutaneous tissue, and bone at site of an open fracture and insertion of antibiotic beads. ID following, continue Vancomycin. Path showing acute and chronic osteomyelitis. ID recommending at least 6 weeks of IV antibiotics followed by oral. PRN pain treatments PT recs home with outpatient PT Anemia, mild Thrombocytopenia ?secondary to Vancomycin H/H stable No e/o active bleeding Continue to monitor Cirrhosis- alcohol induced s/p paracentesis with removal of about 9800 of fluid 11/02. s/p repeat paracentesis with 7800cc fluid removed 11/06, cytology pending BP soft 101/66, unlikely to tolerate diuretics. Continue 1800cc fluid restriction. Avoid toxins Avoid alcohol; counselled on drinking cessation. Coagulopathy, suspect due to progression of cirrhosis/liver failure INR 1.5 continue to monitor History of alcoholism serum alcohol 160 Follow for any evidence of EtOH withdrawal CIWA protocol Folic acid/thiamine daily Hypertension Normotensive off of any antihypertensives Follow blood pressures Adjust treatments as needed DVT prophylaxis SCDs Code Status: FULL Discussed Condition With: patient, nursing staff, Dr. Stovall Discharge Planning: Discharge pending ortho and ID clearance
[2017-11-07] MEDS: Folic Acid 1 MG Tablet PO SCH (09:24)
[2017-11-07] MEDS: Nystatin 100,000 UNITS/GM Powder 15 GM Bottle TOPICAL SCH ×4 (09:24→22:11)
[2017-11-07] MEDS: Senna/Docusate Sodium 8.6/50 MG Tablet PO SCH ×2 (11:26→22:11)
--- NOTE | 2017-11-07 13:37 | P.PNID ---
Subjective Remarks: doing OK sp paracenthesis afebrile co L arm pain path with acute and chronic osteo clx negative Antibiotics: vanco Past Medical History: chronic ETOHism Allergies/Adverse Reactions: Allergies No Known Allergies Allergy (Unverified 11/01/17 01:18) Objective Vital Signs 11/06/17 13:38 11/06/17 16:00 11/06/17 20:00 Temperature 98.8 F 97.1 F L 97.8 F Pulse Rate 86 79 78 Respiratory Rate 18 18 18 Blood Pressure 113/78 114/63 126/70 Pulse Oximetry 95 98 97 11/06/17 20:08 11/06/17 23:55 11/07/17 00:00 Temperature 99.9 F H Pulse Rate 78 88 85 Respiratory Rate 18 Blood Pressure 101/56 L Pulse Oximetry 96 11/07/17 04:00 11/07/17 04:23 11/07/17 08:17 Temperature 99.6 F 98.0 F Pulse Rate 82 82 79 Respiratory Rate 18 16 Blood Pressure 97/59 L 110/63 101/66 Pulse Oximetry 95 93 L 11/07/17 09:20 11/07/17 10:20 11/07/17 11:56 Temperature Pulse Rate 78 Respiratory Rate Blood Pressure 99/65 L 95/68 L Pulse Oximetry 11/07/17 12:00 Temperature 98 F Pulse Rate 83 Respiratory Rate 18 Blood Pressure 109/69 Pulse Oximetry 97 Intake & Output 11/06/17 11/07/17 11/07/17 18:59 06:59 18:59 Intake Total 515 / 515 715 / 715 Balance 515 / 515 715 / 715 Intake: IV 515 / 515 715 / 715 Flexbumin 25% Inj 200 ML @ 60 200 / 200 mls/hr IV.SIG ONCE ONE Rx#: [id number] Vancomycin Inj 1,500 MG In NS 515 / 515 515 / 515 Inj 500 ML @ 250 mls/hr IV.SIG Q12H [facility] Rx#:[id number] Other: # Voids 4 Date of Last Bowel Movement 11/05/17 11/05/17 11/01/17 04:05 Blood - Peripheral Aerobic Blood Culture - Final No growth in 5 days 11/01/17 04:05 Blood - Peripheral Anaerobic Blood Culture - Final No growth in 5 days 11/01/17 04:10 Blood - Peripheral Aerobic Blood Culture - Final No growth in 5 days 11/01/17 04:10 Blood - Peripheral Anaerobic Blood Culture - Final No growth in 5 days Lab - Hematology Results 11/06/17 11/07/17 05:50 04:58 WBC 3.8 L 4.9 RBC 4.10 L 4.13 L Hgb 12.7 L 12.9 L Hct 38.6 L 37.9 L MCV 94.1 91.9 MCH 31.0 31.3 MCHC 33.0 34.0 RDW 13.4 13.5 Plt Count 109 L 116 L MPV 8.8 9.3 Neut % (Auto) 45.0 48.4 Lymph % (Auto) 38.5 36.1 [place] % (Auto) 14.1 H 13.3 H Eos % (Auto) 1.9 1.6 Baso % (Auto) 0.5 0.6 Neut # (Auto) 1.7 L 2.4 Lymph # (Auto) 1.5 1.8 [place] # (Auto) 0.5 0.7 Eos # (Auto) 0.1 0.1 Baso # (Auto) 0.0 0.0 WBC Differential . . Differential Comment Auto diff final Auto diff final Lab - Chemistry Results 11/07/17 04:58 Sodium 136 Potassium 3.9 Chloride 100 Carbon Dioxide 27.9 Anion Gap 8 BUN 8 Creatinine 0.60 Estimated GFR Greater than 89 Random Glucose 88 Calcium 7.3 L* Prot Corrected Calcium 8.1 L Total Protein 5.6 L D Imaging: ITS Impressions Humerus MRI 11/01/17 00:00 CONCLUSION: 1. Inconclusive exam as above. Abdomen/Pelvis CT 11/01/17 03:46 CONCLUSION: 1. Hepatosplenomegaly without focal lesion. 2. Marked ascites. 3. Segmental right lower lung consolidation and small left pleural effusion. Chest X-Ray 11/01/17 03:46 CONCLUSION: Small opacity in the lower lateral right lung may represent an infiltrate or platelike atelectasis. Head CT 11/01/17 03:46 CONCLUSION: 1. Mild central and cortical atrophy. 2. No acute findings in the brain. 3. Mild bilateral maxillary sinus mucosal thickening. . Humerus CT 11/01/17 03:46 CONCLUSION: 1. There is no evidence of bony fusion across the displaced, angulated, and spiral fracture of the proximal humerus. 2. There is a cutaneous defect adjacent to the distal aspect of the proximal fracture fragment suggesting that the fracture is either an open fracture or there is a sinus tract. A cutaneous defect is located approximately 7 cm distal to the main fracture lucency and laterally in the mid arm. Humerus X-Ray 11/01/17 03:46 CONCLUSION: There is no bridging callus across the displaced and angulated spiral fracture of the proximal shaft of the humerus. There is also a nondisplaced hairline fracture line which extends into the greater tuberosity. Paracentesis Ultrasound 11/06/17 00:00 CONCLUSION: 1. Uncomplicated diagnostic paracentesis. Physical Exam: GENERAL: NAD SKIN: Warm and dry. NO rash EYES: Pupils equal and round. No scleral icterus. No injection or drainage. ENT: non icteric CARDIOVASCULAR: Regular rate and rhythm. RESPIRATORY: No accessory muscle use. Clear to auscultation. Breath sounds equal bilaterally. GASTROINTESTINAL: Abdomen soft, non-tender, markedly distended but not tight as it was. MUSCULOSKELETAL: Extremities without clubbing, cyanosis, mild BLE edema. LUE with obvious deformity Incision dry, but some red and bluish discoloration noted fingers free of neurovasc deficit NEUROLOGICAL: Awake and alert. Motor grossly within normal limits. Normal speech. PSYCHIATRIC: Appropriate mood and affect; insight and judgment normal. 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
--- NOTE | 2017-11-07 13:43 | P.DCO ---
Post Hospital Infusion Therapy Location of Infusion Therapy: Ambulatory Infusion Therapy Order Patient Weight: 92 kg - Diagnosis (1) Open fracture of humerus with nonunion Code(s): S42.309K - Unspecified fracture of shaft of humerus, unspecified arm, subsequent encounter for fracture with nonunion - Administer Medication Daptomycin Additional Dosing Instructions: 750 mg IV daily Start Treatment: 11/07/17 Stop Treatment: 12/30/17 - Additional Information Venous Access: PICC Line Additional Instructions: [x] Peripheral flush and dressing changes per protocol [x] Implanted port and central topline beading machine tender: * Implanted port: 10 ml Normal Saline followed by 5 ml Heparin 100 units/ml Heparin flush after each use and monthly to maintain. [] May leave port accessed during therapy. [] May leave peripheral site accessed for duration of therapy. [x] If patient has SOB or respiratory distress, check oxygen saturation. If less than 90% or clinical signs of respiratory distress, administer oxygen at 2 L/min. via nasal cannula and notify physician. [x] Anaphylaxis/Reaction orders: * Stop infusion. * Keep IV line open with saline flush. * Notify physician. * Monitor vital signs every 15 minutes until symptoms resolve. * Check Oxygen saturation; Oxygen at 2 L/min. via nasal cannula if less than 90% or clinical signs of respiratory distress. * Administer diphenhydramine (Benadryl) 25 mg IV STAT, (unless patient has received as pre-med). May repeat once, if necessary. * Solu-Cortef 250 mg IVP over 30-60 seconds, use 100 mg vials for each dissolution. * Epinephrine (1mg/1 ml) 0.3 mg subcutaneously or IVP now with any signs of respiratory distress. * Check with physician for new additional pre-med orders if patient is re- challenged or re-treated. [x] May remove PICC line when treatment complete, after confirming with Physician. [x] If the patient is admitted to the hospital, the ED, or transferred via [facility] , complete transfer form including medication reconciliation order sheet. Weekly Labs: CBC w/diff, CMP, CRP, SED Rate, Serum CK Levels Allergies No Known Allergies Allergy (Unverified 11/01/17 01:18)
[2017-11-07] MEDS: levoFLOXacin 750 MG Tablet PO SCH (15:08)
[2017-11-07] MEDS: LORazepam 1 MG Tablet PO PRN (23:03)
[2017-11-08] MEDS: Vancomycin Inj 1,500 MG in Sodium Chlor 0.9% Inj 500 ML IV.SIG SCH ×2 (04:26→15:44)
--- NOTE | 2017-11-08 07:19 | P.PN ---
Subjective Interval history: Follow-up on patient status post I&D left upper extremity, osteomyelitis. Patient seen and examined. Patient is stable. No acute medical complaints. Denies any fever or chills. Denies any nausea, vomiting or abdominal pain. Physical Exam Vital signs: Vital Signs 11/07/17 08:17 11/07/17 09:20 11/07/17 10:20 Temperature 98.0 F Pulse Rate 79 Respiratory Rate 16 Blood Pressure 101/66 99/65 L 95/68 L Pulse Oximetry 93 L 11/07/17 11:56 11/07/17 12:00 11/07/17 16:00 Temperature 98 F 98.1 F Pulse Rate 78 83 82 Respiratory Rate 18 18 Blood Pressure 109/69 116/73 Pulse Oximetry 97 97 11/07/17 20:00 11/07/17 21:13 11/08/17 00:00 Temperature 99.3 F 98.1 F Pulse Rate 80 77 Respiratory Rate 18 18 Blood Pressure 113/67 86/55 L Pulse Oximetry 95 96 92 L 11/08/17 01:19 11/08/17 04:00 Temperature 98.1 F Pulse Rate 80 Respiratory Rate 16 Blood Pressure 97/58 L 103/58 L Pulse Oximetry 93 L Intake & Output 11/07/17 11/08/17 11/08/17 18:59 06:59 18:59 Intake Total 915 / 915 755 / 755 Output Total 400 / 400 800 / 800 Balance 515 / 515 -45 / -45 Weight 92 kg 92.1 kg Intake: IV 515 / 515 515 / 515 Vancomycin Inj 1,500 MG In NS 515 / 515 515 / 515 Inj 500 ML @ 250 mls/hr IV.SIG Q12H [facility] Rx#:[id number] Oral 400 / 400 240 / 240 Output: Urine 400 / 400 800 / 800 Other: # Voids 1 Date of Last Bowel Movement 11/06/17 # Bowel Movements 0 Narrative: GENERAL: Thin WDWN male patient, INAD. Awake and alert. Sitting up in bedside chair. SKIN: Warm and dry. HEENT: Atraumatic. Normocephalic. Pupils equal and round. No scleral icterus. No injection or drainage. No nasal bleeding or discharge. Mucous membranes pink and moist. NECK: Trachea midline. CARDIOVASCULAR: Regular rate and rhythm. RESPIRATORY: No accessory muscle use. Clear to auscultation. Breath sounds equal bilaterally. GASTROINTESTINAL: Abdomen soft, nontender, less distended. +BS. MUSCULOSKELETAL: Extremities without clubbing, cyanosis, or edema. LUE dressed in SAMARIA wrap, incision healing well, sutures intact. NV intact distal LUE. NEUROLOGICAL: Awake and alert. No obvious cranial nerve deficits. Motor grossly within normal limits. Able to move all extremities spontaneously. Normal speech. PSYCHIATRIC: Calm and cooperative. Appropriate mood and affect. Results - Labs CBC & Chem 7: 11/07/17 04:58 11/07/17 04:58 Laboratory Results - last 24 hr 11/07/17 04:58 Sodium 136 Potassium 3.9 Chloride 100 Carbon Dioxide 27.9 Anion Gap 8 BUN 8 Creatinine 0.60 Estimated GFR Greater than 89 Random Glucose 88 Calcium 7.3 L* Prot Corrected Calcium 8.1 L Total Protein 5.6 L D Assessment and Plan - Assessment (1) Fracture of humerus with nonunion Code(s): S42.309K - Unspecified fracture of shaft of humerus, unspecified arm, subsequent encounter for fracture with nonunion Status: Acute (2) Open fracture of humerus with nonunion Code(s): S42.309K - Unspecified fracture of shaft of humerus, unspecified arm, subsequent encounter for fracture with nonunion Status: Acute (3) Cirrhosis Code(s): K74.60 - Unspecified cirrhosis of liver Status: Acute - Plan 52-year-old male admitted secondary to nonunion humerus fracture now with a fistula and drainage. Nonunion of the humerus fracture Fistula/sinus with drainage over fracture site Osteomyelitis Orthopedic consult appreciated. s/p Irrigation and debridement left arm including skin, subcutaneous tissue, and bone at site of an open fracture and insertion of antibiotic beads. ID following, continue Vancomycin. Path showing acute and chronic osteomyelitis. ID recommending at least 8 weeks of IV antibiotics followed by oral. Discharge referral written for Daptomycin by ID 11/07 to 12/30. PRN pain treatments PT recs home with outpatient PT OT eval/tx Anemia, mild Thrombocytopenia ?secondary to Vancomycin H/H stable No e/o active bleeding Continue to monitor Cirrhosis- alcohol induced Hep profile nonreactive s/p paracentesis with removal of about 9800 of fluid 11/02. s/p repeat paracentesis with 7800cc fluid removed 11/06, cytology pending hypotensive with BP 102/65, unlikely to tolerate diuretics. Continue 1800cc fluid restriction. 2gm salt restricted diet. Discussed with patient. Avoid toxins Avoid alcohol; counselled on drinking cessation. Coagulopathy, suspect due to progression of cirrhosis/liver failure INR 1.5 continue to monitor Hypocalcemia protein corrected calcium 8.1 started on po Tums History of alcoholism serum alcohol 160 Follow for any evidence of EtOH withdrawal CIWA protocol Folic acid/thiamine daily Hypertension Normotensive off of any antihypertensives Follow blood pressures Adjust treatments as needed DVT prophylaxis SCDs Code Status: FULL Discussed Condition With: patient, nursing staff, Dr. Stovall Discharge Planning: Discharge pending ortho and ID clearance
--- NOTE | 2017-11-08 07:23 | P.DS ---
Date of admission: 11/01/17 06:48 Primary care physician: No Primary Care Physician Attending physician on discharge: Diana Stovall Anticipated date of discharge: 11/08/17 Brief History from admission: 52-year-old male has been hospitalized secondary to a nonunion fracture with fistula and drainage. The patient had a spiral fracture from September 09, 2017. No operative management, coaptation splint placed at that time. Patient is an alcoholic. He has been noncompliant with follow-up, he is reported to have continued to drink and smoke and fall. History is limited today due to inebriation. Patient has complaints of pain. Here because his girlfriend brought him in because she had concerns about the developing fistula and drainage. She also noticed that the arm did not look straight when the splint was taken off. Patient update on day of discharge: Follow-up on patient status post I&D left upper extremity, osteomyelitis. Patient seen and examined. Patient is stable. No acute medical complaints. Denies any fever or chills. Denies any nausea, vomiting or abdominal pain. DS: Diagnosis - Discharge Diagnosis (1) Fracture of humerus with nonunion Status: Acute (2) Open fracture of humerus with nonunion Status: Acute (3) Cirrhosis Status: Acute (4) Osteomyelitis Status: Acute (5) Thrombocytopenia Status: Acute (6) Coagulopathy Status: Acute DS: Medications - Discharge Medications Prescriptions: levofloxacin 750 mg PO DAILY #45 tab thiamine HCl (vitamin B1) 100 mg PO DAILY #30 tab DS: Summary Hospital Course: Patient admitted with nonunion left humerus fracture with fistula/sinus with drainage over the fracture site. Patient was started on IV vancomycin. Patient seen in consultation by orthopedic service and underwent I&D of the left arm and insertion of antibiotic beads. Pathology revealed acute and chronic osteo-myelitis. Patient was seen in consultation by infectious disease who recommended 8 weeks of IV daptomycin as well as Levaquin. Patient underwent two paracentesis for alcoholic induced cirrhosis with resultant ascites. Cytology significant for atypical mesothelial cells and lymphocytes. Hep profile was nonreactive. Post hospital infusion orders were written by ID who cleared patient for discharge. Patient was cleared for discharge by orthopedic service. Patient advised to follow up with sex worker or escort. Patient unable to tolerate diuretics secondary to low blood pressure and was educated on fluid and salt restricted diet. - Time Spent with Patient Total time spent providing and/or coordinating discharge services: Greater than 30 minutes Exam Vital signs: Vital Signs 11/07/17 08:17 11/07/17 09:20 11/07/17 10:20 Temperature 98.0 F Pulse Rate 79 Respiratory Rate 16 Blood Pressure 101/66 99/65 L 95/68 L Pulse Oximetry 93 L 11/07/17 11:56 11/07/17 12:00 11/07/17 16:00 Temperature 98 F 98.1 F Pulse Rate 78 83 82 Respiratory Rate 18 18 Blood Pressure 109/69 116/73 Pulse Oximetry 97 97 11/07/17 20:00 11/07/17 21:13 11/08/17 00:00 Temperature 99.3 F 98.1 F Pulse Rate 80 77 Respiratory Rate 18 18 Blood Pressure 113/67 86/55 L Pulse Oximetry 95 96 92 L 11/08/17 01:19 11/08/17 04:00 Temperature 98.1 F Pulse Rate 80 Respiratory Rate 16 Blood Pressure 97/58 L 103/58 L Pulse Oximetry 93 L Intake & Output 11/07/17 11/08/17 11/08/17 18:59 06:59 18:59 Intake Total 915 / 915 755 / 755 Output Total 400 / 400 800 / 800 Balance 515 / 515 -45 / -45 Weight 92 kg 92.1 kg Intake: IV 515 / 515 515 / 515 Vancomycin Inj 1,500 MG In NS 515 / 515 515 / 515 Inj 500 ML @ 250 mls/hr IV.SIG Q12H LE Rx#:[id number] Oral 400 / 400 240 / 240 Output: Urine 400 / 400 800 / 800 Other: # Voids 1 Date of Last Bowel Movement 11/06/17 # Bowel Movements 0 Narrative: GENERAL: Thin WDWN male patient, INAD. Awake and alert. Sitting up in bedside chair. SKIN: Warm and dry. HEENT: Atraumatic. Normocephalic. Pupils equal and round. No scleral icterus. No injection or drainage. No nasal bleeding or discharge. Mucous membranes pink and moist. NECK: Trachea midline. CARDIOVASCULAR: Regular rate and rhythm. RESPIRATORY: No accessory muscle use. Clear to auscultation. Breath sounds equal bilaterally. GASTROINTESTINAL: Abdomen soft, nontender, less distended. +BS. MUSCULOSKELETAL: Extremities without clubbing, cyanosis, or edema. LUE dressed in SAMARIA wrap, incision healing well, sutures intact. NV intact distal LUE. NEUROLOGICAL: Awake and alert. No obvious cranial nerve deficits. Motor grossly within normal limits. Able to move all extremities spontaneously. Normal speech. PSYCHIATRIC: Calm and cooperative. Appropriate mood and affect. Results Procedures completed during hospitalization: Date of procedure: 11/01/17 Procedure: 1. Irrigation and debridement left arm including skin, subcutaneous tissue, and bone at site of an open fracture 2. Insertion of antibiotic beads Implants: Stimulan, antibiotic-delivery beads Anesthesia: GETA Surgeon: Jo Salinas MD Estimated blood loss (mL): 75 Pathology: other (multiple cultures including bone and soft tissue sent to microbiology and pathology) Operation and Findings: Indications for procedure:52-year-old noncompliant gentleman with a proximal third humeral shaft fracture who continues to be noncompliant with recommendations. He continues to drink to excess with recurrent and frequent falls. In addition, he continues to remove his splint at home. He continues to smoke as well. At this time, I believe he has had an open wound for at least 1-2 weeks although this is indeterminate as both him and his girlfriend are poor historians as to when this occurred. However, patient's girlfriend did call our office approximately 1-1/2 weeks ago with concern for bone protrusion from the skin and was instructed to immediately present to the emergency department. Again patient did not follow instructions and I received another call last night regarding this. Patient was instructed to present to the emergency department again and this time he did follow instructions. I discussed with the patient and his girlfriend given the nature of the open injury at this time, I would recommend surgical intervention. However, given his noncompliance, his liver cirrhosis, and current concern for infection, I would not recommend any fixation at this time. I would recommend irrigation and debridement of the now open fracture site. I discussed with the patient that he may require further surgery in the future should he have recurrent infection or should he develop a nonunion. However, I do not believe hardware placement at this time is appropriate given the concern for infection. Patient has consented to the above-mentioned procedure. Description of procedure: Patient was brought back to the operating room and placed supine on operating room table with all bony prominences well-padded. General anesthesia then ensued. Patient's left arm was then prepped and draped in standard sterile fashion. Preoperative antibiotics had already been given as patient was on scheduled antibiotics upon admission. A timeout was performed to identify the correct patient, side, site and procedure to be performed. An approximately 3 inch incision was then made over the sinus tract/ open wound with ellipsing of the sinus tract. Sharp dissection was made through the skin and subcutaneous tissue with bipolar electrocautery. Immediately encountered in this wound was a fragment of bone. Multiple cultures were taken and this fragment of bone removed with the use of San. This bone was sent to pathology to evaluate for osteomyelitis. The muscle, bone , subcutaneous tissue and skin was then debrided sharply with scalpel, curettes , and San. This wound was thoroughly irrigated with normal saline laden with gentamicin. At this point, there is no gross signs of infection. Antibiotic beads, Stimulan, were then made on the back table with 1 g of vancomycin added. These were allowed to fully harden and then was inserted into the wound to allow for delayed antibiotic delivery locally. The deep tissue was then closed with PDS sutures and the skin closed with nylon. Sterile dressings were applied. Patient was awoken from general anesthesia without complication. Disposition: Patient will be nonweightbearing to left upper extremity in a sling and swath. EXAM DATE: 11/06/2017 2:53 PM EDT AGE/SEX: 52 years / Male INDICATIONS: Ascites. CLINICAL DATA: This is the patient's subsequent encounter. Patient reports that signs and symptoms have been present for 3 days and indicates a pain score of 4/10. MEDICAL/SURGICAL HISTORY: Hypertension. Cirrhosis. Humerus fracture. None. COMPARISON: [facility] [place], [place] PARACENTESIS ABD W/IMAGE, 11/02/2017. . FLUID: Total volume of 7800 cc of clear, green fluid was removed. Fluid was sent to lab for ordered studies. TECHNIQUE: Ultrasound guidance for abdominal paracentesis. Paracentesis. The risks, benefits, and alternatives to ultrasound guided paracentesis were explained to the patient in detail including the risk of bleeding and infection. Written and verbal informed consent was obtained. With the patient on the ultrasound table, ultrasound imaging was used to select the most appropriate approach for paracentesis. Overlying skin was prepped and draped in the usual sterile fashion and with a local anesthetic, a dermatotomy was made with an 11 blade scalpel. A 6 Czech [id number] catheter was introduced into the peritoneal cavity and fluid was collected. The patient tolerated the procedure well and left the ultrasound suite in stable condition. CONCLUSION: 1. Uncomplicated diagnostic paracentesis. EXAM DATE: 11/02/2017 5:42 PM EDT AGE/SEX: 52 years / Male INDICATIONS: Ascites. CLINICAL DATA: This is the patient's initial encounter. Patient reports that signs and symptoms have been present for 1 day and indicates a pain score of 5/ 10. MEDICAL/SURGICAL HISTORY: . Cirrhosis. Alcohol abuse. Hypertension. Smoker. . Humerus fracture. COMPARISON: [facility] [place], [place] ABDOMEN & PELVIS W CONTRAST, 11/01/2017. . FLUID: Total volume of 9800 cc of clear, green fluid was removed. Fluid was discarded. Paracentesis was therapeutic only. TECHNIQUE: Ultrasound guidance for abdominal paracentesis. Paracentesis. The risks, benefits, and alternatives to ultrasound guided paracentesis were explained to the patient in detail including the risk of bleeding and infection. Written and verbal informed consent was obtained. With the patient on the ultrasound table, ultrasound imaging was used to select the most appropriate approach for paracentesis. Overlying skin was prepped and draped in the usual sterile fashion and with a local anesthetic, a dermatotomy was made with an 11 blade scalpel. A 6 Czech [id number] catheter was introduced into the peritoneal cavity and fluid was collected. Post procedure scanning reveals no hematoma or other complication. The patient tolerated the procedure well and left the ultrasound suite in stable condition. CONCLUSION: Ultrasound-guided abdominal paracentesis as above. Electronically signed by: Mitch Barksdale MD 11/02/2017 7:57 PM EDT Completed studies during hospitalization: Pending at discharge 11/01/17 07:53 Surgical [PTH] Routine Labs on day of discharge: Labs from last 24 hours 11/07/17 04:58 Prot Corrected Calcium 8.1 L Total Protein 5.6 L D - Impressions ITS Impressions Humerus MRI 11/01/17 00:00 CONCLUSION: 1. Inconclusive exam as above. Abdomen/Pelvis CT 11/01/17 03:46 CONCLUSION: 1. Hepatosplenomegaly without focal lesion. 2. Marked ascites. 3. Segmental right lower lung consolidation and small left pleural effusion. Chest X-Ray 11/01/17 03:46 CONCLUSION: Small opacity in the lower lateral right lung may represent an infiltrate or platelike atelectasis. Head CT 11/01/17 03:46 CONCLUSION: 1. Mild central and cortical atrophy. 2. No acute findings in the brain. 3. Mild bilateral maxillary sinus mucosal thickening. . Humerus CT 11/01/17 03:46 CONCLUSION: 1. There is no evidence of bony fusion across the displaced, angulated, and spiral fracture of the proximal humerus. 2. There is a cutaneous defect adjacent to the distal aspect of the proximal fracture fragment suggesting that the fracture is either an open fracture or there is a sinus tract. A cutaneous defect is located approximately 7 cm distal to the main fracture lucency and laterally in the mid arm. Humerus X-Ray 11/01/17 03:46 CONCLUSION: There is no bridging callus across the displaced and angulated spiral fracture of the proximal shaft of the humerus. There is also a nondisplaced hairline fracture line which extends into the greater tuberosity. Paracentesis Ultrasound 11/06/17 00:00 CONCLUSION: 1. Uncomplicated diagnostic paracentesis. Discharge Plan - Discharge Disposition Patient Disposition: /Home Health Service - Discharge Condition Condition: Stable - Discharge Order Discharge Orders: Discharge Order (Routine); Ordered 11/08/17 Ordered By: Yazmin Mcclain - Discharge Details Anticipated Discharge Date: 11/08/17 Discharge Comment: Discharge pending ortho clearance, ID clearance and post hospital IV infusion orders set up by case management - Physicians Team Primary Care Provider: Primary Care Merline,Magi Attending Provider: Diana Stovall Other Providers: Francis Jha MD ; Bertha Russell MD
[2017-11-08] MEDS: Folic Acid 1 MG Tablet PO SCH (08:10)
[2017-11-08] MEDS: levoFLOXacin 750 MG Tablet PO SCH (08:11)
[2017-11-08] MEDS: Senna/Docusate Sodium 8.6/50 MG Tablet PO SCH (08:12)
[2017-11-08] MEDS: Nystatin 100,000 UNITS/GM Powder 15 GM Bottle TOPICAL SCH ×3 (08:12→17:26)
[2017-11-08 09:02] VITALS: RESP 14
[2017-11-08 12:38] VITALS: PULSE 77
[2017-11-08] MEDS ORDERED: Heparin Central Flush 100 UNIT/ML 5 ML Vial IV.FLUSH PRN (12:51)
[2017-11-08 12:56] VITALS: O2SAT 96
[2017-11-08 13:40] VITALS: BP 142/91; TEMP 99.5
[2017-11-09] MEDS ORDERED: Heparin Central Flush 100 UNIT/ML 5 ML Vial IV.FLUSH SCH (09:00)
== END 2017-11-08 18:00 | disposition home health service (06) ==
LOC: NEPC 01:15 → NEDA 06:48 → N05 08:20
PROVIDERS: ADMIT Family Medicine; ATTEND Family Medicine

== ENCOUNTER 2017-12-04 18:01 | Inpatient (IN) ==
--- NOTE | 2017-12-04 19:29 | ED ---
HPI General Chief complaint: Chest Pain Stated complaint: Sent by /lowell pain Time Seen by Provider: 12/04/17 18:26 History of Present Illness HPI narrative: 52-year-old male with a history of hypertension, COPD, liver failure with ascites, chronic osteomyelitis of left humerus with PICC line in place receiving daptomycin daily presents to the emergency department for evaluation of abdominal pain and chest pain. The patient states he has abdominal pain due to distention. States that his abdomen feels very tight and painful. States that he is having chest pain as well which he thinks is due to the distention of his abdomen. This has been ongoing for over a week. He has received therapeutic paracentesis in the past, was seen here yesterday and an outpatient paracentesis order was placed which she is scheduled to have done tomorrow. States that his pain acutely worsened about 6 hours ago. He states he is feeling weak, lethargic, lightheaded and has had several episodes of nonbloody nonbilious emesis. States he has not had a bowel movement in 1 week. He does have bilateral lower extremity edema worse in the left leg, states that this has been worsening over the past several days as well. He denies any fever or chills. [facility]. No other complaints. Related Data Home Medications Medication Instructions Recorded Confirmed daptomycin 750 mg IV DAILY 11/10/17 12/04/17 Previous Rx's Medication Instructions Recorded levofloxacin 750 mg PO DAILY #45 tab 11/08/17 thiamine HCl (vitamin B1) 100 mg PO DAILY #30 tab 11/08/17 cephalexin [Keflex] 500 mg PO BID 5 Days #10 cap 12/03/17 Allergies Allergy/AdvReac Type Severity Reaction Status Date / Time No Known Allergies Allergy Verified 12/04/17 18:52 Review of Systems ROS: all other systems reviewed are negative PMFSH Social History Social History Substance History: Past History Second Hand Smoke Exposure: Yes Smoking Status: Heavy tobacco smoker Tobacco Type: Cigarettes How Often Do You Have a Drink Containing Alcohol: Never Recent Travel in [facility] within the Last 8 Weeks: No Recent Out of Country Travel within the Last 8 Weeks: No Immunization History Tetanus Immunization: <5 Years Exam Narrative Exam Narrative: GENERAL: Well-nourished and well-developed pleasant patient in no acute distress who is nontoxic appearing. SKIN: Warm and dry without any obvious rashes or lesions. HEAD: Normocephalic and atraumatic. EYES: No injection, drainage, or hyphema noted. PERRLA. EOMI. ENT: No nasal drainage noted. Oropharynx is clear. NECK: Supple and the trachea is midline. CARDIOVASCULAR: Regular rate and rhythm. RESPIRATORY: Breath sounds are equal bilaterally with no accessory muscle use, wheezing, rhonchi, or crackles. GASTROINTESTINAL: Abdomen is distended and firm but not rigid. Generalized abdominal tenderness to palpation. MUSCULOSKELETAL: No obvious deformities, swelling, cyanosis, or ecchymosis is present throughout the upper and lower extremities. Patient has full range of motion without any signs of neurovascular compromise. Distal pulses are 2+ throughout. NEUROLOGICAL: Awake, alert, and oriented. Normal speech and gait. Cranial nerves are grossly intact. Course Initial Documented Vital Signs Temperature 97.7 F 12/04/17 18:13 Pulse Rate 93 H 12/04/17 18:13 Respiratory Rate 16 12/04/17 18:13 Blood Pressure 153/106 H 12/04/17 18:13 Pulse Oximetry 96 12/04/17 18:13 Last Documented Vital Signs Temperature 97.7 F 12/04/17 18:13 Pulse Rate 93 H 12/04/17 18:13 Respiratory Rate 16 12/04/17 18:13 Blood Pressure 153/106 H 12/04/17 18:13 Pulse Oximetry 96 12/04/17 18:13 Medical Decision Making MDM Narrative Medical decision making narrative: 52-year-old male presents to the emergency department for evaluation of intense anxieties due to liver failure. Patient is afebrile, vital signs are stable. Last time patient received therapeutic paracentesis was 2 weeks ago. He is reporting that his symptoms have been worsening. He had an ultrasound of the abdomen yesterday in the ED which showed moderate to large amount of ascitic fluid. The access is obtained, labs of been drawn and sent. Patient is placed on cardiac telemetry and pulse oximetry monitoring. CBC is unremarkable. CMP is unremarkable. Ammonia is within normal limits. Troponin is less than 0.02. Bilateral lower extremity ultrasound imaging is negative for DVT. Patient has been seen here 3 times now with same complaint. Multiple attempts have been made to have outpatient therapeutic paracentesis performed but unfortunately patient has been unable to have this done as planned due to insurance and other administrative issues. Therefore patient will be kept in observation tonight to have therapeutic paracentesis done in the morning. Dr. Osborne accepts under observation. I discussed the case with my attending physician Dr. Bhatia who is aware of the patients history, physical examination findings, and treatment plan. Medical Screen Exam Complete: Yes Emergency Medical Condition: Yes Differential Diagnosis Differential Diagnosis: Ascites versus liver failure versus electrolyte abnormality versus other Lab Data Result diagrams: 12/04/17 19:35 12/04/17 19:35 Lab Results 12/04/17 12/04/17 12/04/17 Range/Units 19:35 19:35 19:35 WBC 6.5 (4.0-11.0) th/mm3 RBC 4.66 (4.50-5.90) mil/mm3 Hgb 13.8 (13.0-17.0) gm/dL Hct 41.4 (39.0-51.0) % MCV 88.8 (80.0-100.0) fL MCH 29.5 (27.0-34.0) pg MCHC 33.3 (32.0-36.0) % RDW 14.0 (11.6-17.2) % Plt Count 162 (150-450) th/mm3 MPV 8.4 (7.0-11.0) fL Neut % (Auto) 46.2 (16.0-70.0) % Lymph % (Auto) 40.5 (9.0-44.0) % [place] % (Auto) 8.5 H (0.0-8.0) % Eos % (Auto) 3.9 (0.0-4.0) % Baso % (Auto) 0.9 (0.0-2.0) % Neut # (Auto) 3.0 (1.8-7.7) th/mm3 Lymph # (Auto) 2.6 (1.0-4.8) th/mm3 [place] # (Auto) 0.5 (0.0-0.9) th/mm3 Eos # (Auto) 0.2 (0.0-0.4) th/mm3 Baso # (Auto) 0.1 (0.0-0.2) th/mm3 WBC Differential . Differential Comment Auto diff final PT 13.6 H (9.8-11.6) sec INR 1.3 Ratio APTT 36.9 H (24.3-30.1) sec Sodium 134 L (136-145) meq/L Potassium 4.4 (3.5-5.1) meq/L Chloride 100 (98-107) meq/L Carbon Dioxide 26.7 (21.0-32.0) meq/L Anion Gap 7 (5-15) meq/L BUN 10 (7-18) mg/dL Creatinine 0.72 (0.60-1.30) mg/dL Estimated GFR Greater than 89 (>89) mL/min Random Glucose 86 (74-106) mg/dL Calcium 8.3 L (8.5-10.1) mg/dL Total Bilirubin 0.4 (0.2-1.0) mg/dL AST 41 H (15-37) U/L ALT 24 (12-78) U/L Alkaline Phosphatase 185 H (45-117) U/L Ammonia (11-32) mcmol/L Troponin I Less than 0.02 L (0.02-0.05) ng/mL Total Protein 6.4 (6.4-8.2) g/dL Albumin 2.4 L (3.4-5.0) g/dL Serum Alcohol Less than 3 (0-5) mg/dL 12/04/17 Range/Units 20:13 WBC (4.0-11.0) th/mm3 RBC (4.50-5.90) mil/mm3 Hgb (13.0-17.0) gm/dL Hct (39.0-51.0) % MCV (80.0-100.0) fL MCH (27.0-34.0) pg MCHC (32.0-36.0) % RDW (11.6-17.2) % Plt Count (150-450) th/mm3 MPV (7.0-11.0) fL Neut % (Auto) (16.0-70.0) % Lymph % (Auto) (9.0-44.0) % [place] % (Auto) (0.0-8.0) % Eos % (Auto) (0.0-4.0) % Baso % (Auto) (0.0-2.0) % Neut # (Auto) (1.8-7.7) th/mm3 Lymph # (Auto) (1.0-4.8) th/mm3 [place] # (Auto) (0.0-0.9) th/mm3 Eos # (Auto) (0.0-0.4) th/mm3 Baso # (Auto) (0.0-0.2) th/mm3 WBC Differential Differential Comment PT (9.8-11.6) sec INR Ratio APTT (24.3-30.1) sec Sodium (136-145) meq/L Potassium (3.5-5.1) meq/L Chloride (98-107) meq/L Carbon Dioxide (21.0-32.0) meq/L Anion Gap (5-15) meq/L BUN (7-18) mg/dL Creatinine (0.60-1.30) mg/dL Estimated GFR (>89) mL/min Random Glucose (74-106) mg/dL Calcium (8.5-10.1) mg/dL Total Bilirubin (0.2-1.0) mg/dL AST (15-37) U/L ALT (12-78) U/L Alkaline Phosphatase (45-117) U/L Ammonia 23 (11-32) mcmol/L Troponin I (0.02-0.05) ng/mL Total Protein (6.4-8.2) g/dL Albumin (3.4-5.0) g/dL Serum Alcohol (0-5) mg/dL Imaging Data Radiologist's impression: Chest X-Ray 12/04/17 19:16 CONCLUSION: No acute cardiopulmonary process. Venous Doppler Study 12/04/17 19:26 CONCLUSION: No DVT. Discharge Plan Discharge Disposition Patient Disposition: 30 Still Patient Discharge Details Diagnosis: Ascites Physicians Team ED Provider: Olga Bhatia ED Midlevel Provider: Alicia Mcbride Primary Care Provider: Christy Kaur, Rxs /Orders / Referrals /Forms Prescriptions: No Action thiamine HCl (vitamin B1) 100 mg Tablet 100 mg PO DAILY Qty: 30 RF: 0 levofloxacin 750 mg Tablet 750 mg PO DAILY Qty: 45 RF: 0 daptomycin 750 mg IV DAILY RF: 0 cephalexin [Keflex] 500 mg capsule 500 mg PO BID 5 Days Qty: 10 RF: 0 Discharge Instructions Patient Printed Instructions: Chest Pain (ED) Status ED Status: With Doctor
--- NOTE | 2017-12-04 19:37 | XR ---
EXAM DATE: 12/04/2017 7:16 PM EDT AGE/SEX: 52 years / Male INDICATIONS: Chest and abdominal pain. CLINICAL DATA: This is the patient's initial encounter. Patient reports that signs and symptoms have been present for 1 week and indicates a pain score of 10/10. MEDICAL/SURGICAL HISTORY: . Chronic obstructive pulmonary disease. Liver disease (end stage). None. COMPARISON: [facility], CHEST 1V SINGLE AP, 12/03/2017. . FINDINGS: There is a PICC line in place from the right arm with the tip overlying the SVC. The heart size is no rmal. The lungs are clear. No effusion is seen. CONCLUSION: No acute cardiopulmonary process. Electronically signed by: Jagdeep Philip MD 12/04/2017 7:36 PM EDT
[2017-12-04 19:47] LABS: Baso # (Auto) 0.1 th/mm3 (0.0-0.2); Baso % (Auto) 0.9 % (0.0-2.0); Eos # (Auto) 0.2 th/mm3 (0.0-0.4); Eos % (Auto) 3.9 % (0.0-4.0); Hematocrit 41.4 % (39.0-51.0); Hemoglobin 13.8 gm/dL (13.0-17.0); Lymph # (Auto) 2.6 th/mm3 (1.0-4.8); Lymph % (Auto) 40.5 % (9.0-44.0); Mean Corpuscular HGB Conc 33.3 % (32.0-36.0); Mean Corpuscular Hemoglobin 29.5 pg (27.0-34.0); Mean Corpuscular Volume 88.8 fL (80.0-100.0); Mean Platelet Volume 8.4 fL (7.0-11.0); Mono # (Auto) 0.5 th/mm3 (0.0-0.9); Mono % (Auto) 8.5 % (0.0-8.0); Neut % (Auto) 46.2 % (16.0-70.0); Platelet Count 162 th/mm3 (150-450); Red Blood Count 4.66 mil/mm3 (4.50-5.90); White Blood Count 6.5 th/mm3 (4.0-11.0)
[2017-12-04 19:58] LABS: Activated Partial Thrombo Time 36.9 sec (24.3-30.1); INR 1.3 Ratio; Prothrombin Time 13.6 sec (9.8-11.6)
[2017-12-04 20:01] LABS: Alanine Aminotransferase 24 U/L (12-78); Albumin 2.4 g/dL (3.4-5.0); Anion Gap 7 meq/L (5-15); Aspartate Aminotransferase 41 U/L (15-37); Blood Urea Nitrogen 10 mg/dL (7-18); Calcium 8.3 mg/dL (8.5-10.1); Carbon Dioxide 26.7 meq/L (21.0-32.0); Chloride 100 meq/L (98-107); Glomerular Filtration Rate Greater Than 89 mL/min (>89); Glucose,Random 86 mg/dL (74-106); Potassium 4.4 meq/L (3.5-5.1); Sodium 134 meq/L (136-145)
[2017-12-04 20:05] LABS: Alkaline Phosphatase 185 U/L (45-117); Total Protein 6.4 g/dL (6.4-8.2)
--- NOTE | 2017-12-04 21:28 | US ---
EXAM DATE: 12/04/2017 7:26 PM EDT AGE/SEX: 52 years / Male INDICATIONS: Bilateral leg edema. CLINICAL DATA: This is the patient's subsequent encounter. Patient reports that signs and symptoms h ave been present for 1 month and indicates a pain score of 4/10. MEDICAL/SURGICAL HISTORY: Chronic obstructive pulmonary disease. Incontinence of bowel. Liver f ailure. Humeral fracture. None. [place] [facility] [place] LEFT[place] 11/19/2017. . TECHNIQUE: Venous ultrasound of both lower extremities was performed from the inguinal ligament to t he proximal calf. Real-time, color Doppler and spectral tracing, compression and augmentation techni ques were used. FINDINGS: Right Leg: Normal compression of the deep venous system from the inguinal region to the proximal collin f. No echogenic clot is seen. Normal response of the venous system to augmentation and respiration. Left Leg: Normal compression of the deep venous system from the inguinal region to the proximal calf . No echogenic clot is seen. Normal response of the venous system to augmentation and respiration. Other: None. CONCLUSION: No DVT. Electronically signed by: Jagdeep Philip MD 12/04/2017 9:27 PM EDT
--- NOTE | 2017-12-04 22:27 | ECG ---
Date Performed: 12/04/2017 Time Performed: 19:33:24 PTAGE: 52 years EKG: Sinus rhythm NORMAL ECG NO PREVIOUS TRACING DOCTOR: Say Pool Interpretating Date/Time 12/04/2017 22:26:35
--- NOTE | 2017-12-05 00:57 | P.HP ---
History of Present Illness Service: [facility] Primary Care Physician: Christy Kaur History of Present Illness: 52-year-old male with a past medical history of hypertension, COPD, cirrhosis with chronic ascites and chronic osteomyelitis of the left humerus with a PICC line in place receiving daily daptomycin presents to the emergency department for evaluation of abdominal and chest pain. The patient's symptoms have persisted for the past week. His last paracentesis was done on 11/20/17. The patient has been unable to arrange outpatient paracentesis and returns to the emergency department with worsening abdominal pain. He endorses associated shortness of breath. Positive bilateral lower extremity edema. Positive constipation. No nausea/vomiting/diarrhea. No fevers/chills. No lateralizing signs/symptoms. Review of Systems All other systems reviewed negative except as stated in HPI PMFSH - History History Provided By: Patient, Family Member - Medical History Medical History: Medical History (Last Updated 12/05/17 @ 00:48 by Gabbi Osborne MD) Hypertension Surgical history unknown COPD (chronic obstructive pulmonary disease) Humeral fracture Incontinence of bowel Liver failure - Family History Family History: Family History (Last Reviewed 12/05/17 @ 00:48 by Gabbi Osborne MD) Other Osteoarthritis - Tobacco History Second Hand Smoke Exposure: Yes Tobacco Use In Past 30 Days: Yes Smoking Status: Heavy tobacco smoker Tobacco Type: Cigarettes - Alcohol History How Often Do You Have a Drink Containing Alcohol: Never - Substance Use History Substance History: Past History - Travel History Recent Travel in the [place] Within the Last 8 Weeks: No Recent Travel Out of the Country Within the Last 8 Weeks: No - Immunization History Tetanus Immunization: <5 Years Medications and Allergies Active Medications: Active Medications Sodium Chloride (Ns Flush) 2 ml IV.FLUSH UNSCH PRN PRN Reason: FLUSH AFTER USING IV ACCESS Allergies Allergy/AdvReac Type Severity Reaction Status Date / Time No Known Allergies Allergy Verified 12/04/17 18:52 Home Medications Medication Instructions Recorded Confirmed Type daptomycin 750 mg IV DAILY 11/10/17 12/04/17 History Exam Vital signs: Vital Signs 12/04/17 18:13 Temperature 97.7 F Pulse Rate 93 H Respiratory Rate 16 Blood Pressure 153/106 H Pulse Oximetry 96 Intake & Output 12/04/17 12/04/17 12/05/17 06:59 18:59 06:59 Weight 75 kg Narrative: Gen.: No acute distress Head: Normocephalic. Atraumatic. EENT: Pupils equal round and reactive to light. Nose without drainage. Airway intact. Throat without injection. Cardiovascular: Regular rate and rhythm. No murmurs, rubs or gallops. Respiratory: Lungs clear to auscultation bilaterally. No wheezes or rhonchi. Abdomen: Distended. Tender to palpation. No peritoneal signs. Musculoskeletal: No gross deformities. No edema. Skin: No obvious rashes or erythema. Neuro: Sensory and motor grossly intact. Cranial nerves II through XII grossly intact. Results - Labs CBC & Chem 7: 12/04/17 19:35 12/04/17 19:35 Labs: Laboratory Results - last 24 hr 12/04/17 12/04/17 12/04/17 19:35 19:35 19:35 WBC 6.5 RBC 4.66 Hgb 13.8 Hct 41.4 MCV 88.8 MCH 29.5 MCHC 33.3 RDW 14.0 Plt Count 162 MPV 8.4 Neut % (Auto) 46.2 Lymph % (Auto) 40.5 [place] % (Auto) 8.5 H Eos % (Auto) 3.9 Baso % (Auto) 0.9 Neut # (Auto) 3.0 Lymph # (Auto) 2.6 [place] # (Auto) 0.5 Eos # (Auto) 0.2 Baso # (Auto) 0.1 WBC Differential . Differential Comment Auto diff final PT 13.6 H INR 1.3 APTT 36.9 H Sodium 134 L Potassium 4.4 Chloride 100 Carbon Dioxide 26.7 Anion Gap 7 BUN 10 Creatinine 0.72 Estimated GFR Greater than 89 Random Glucose 86 Calcium 8.3 L Total Bilirubin 0.4 AST 41 H ALT 24 Alkaline Phosphatase 185 H Ammonia Troponin I Less than 0.02 L Total Protein 6.4 Albumin 2.4 L Serum Alcohol Less than 3 12/04/17 20:13 WBC RBC Hgb Hct MCV MCH MCHC RDW Plt Count MPV Neut % (Auto) Lymph % (Auto) [place] % (Auto) Eos % (Auto) Baso % (Auto) Neut # (Auto) Lymph # (Auto) [place] # (Auto) Eos # (Auto) Baso # (Auto) WBC Differential Differential Comment PT INR APTT Sodium Potassium Chloride Carbon Dioxide Anion Gap BUN Creatinine Estimated GFR Random Glucose Calcium Total Bilirubin AST ALT Alkaline Phosphatase Ammonia 23 Troponin I Total Protein Albumin Serum Alcohol - Imaging Impressions Chest X-Ray 12/04/17 19:16 CONCLUSION: No acute cardiopulmonary process. Venous Doppler Study 12/04/17 19:26 CONCLUSION: No DVT. Caprini VTE Risk Assessment Caprini VTE Risk Assessment: No/Low Risk (score <= 1) Caprini Risk Assessment Model: Point Value = 1 Point Value = 2 Point Value = 3 Point Value = 5 Age 41-60 Minor surgery BMI > 25 kg/m2 Swollen legs Varicose veins or History of unexplained or recurrent spontaneous Oral contraceptives or hormone replacement Sepsis (< 1 month) Serious lung disease, including pneumonia (< 1 month) Abnormal pulmonary function Acute myocardial infarction Congestive heart failure (< 1 month) History of inflammatory bowel disease Medical patient at bed rest Age 61-74 Arthroscopic surgery Major open surgery (> 45 min) Laparoscopic surgery (> 45 min) Malignancy Confined to bed (> 72 hours) Immobilizing plaster cast Central venous access Age >= 75 History of VTE Family history of VTE Factor V Leiden Prothrombin [id number] Lupus anticoagulant Anticardiolipin antibodies Elevated serum homocysteine Heparin-induced thrombocytopenia Other congenital or acquired thrombophilia Stroke (< 1 month) Elective arthroplasty Hip, pelvis, or leg fracture Acute spinal cord injury (< 1 month) Prophylaxis Regimen: Total Risk Factor Score Risk Level Prophylaxis Regimen 0-1 Low Early ambulation 2 Moderate Order ONE of the following: *Sequential Compression Device (SCD) *Heparin 5000 units SQ BID 3-4 Higher Order ONE of the following medications: *Heparin 5000 units SQ TID *Enoxaparin/Lovenox 40 mg SQ daily (WT < 150 kg, CrCl > 30 mL/min) *Enoxaparin/Lovenox 30 mg SQ daily (WT < 150 kg, CrCl > 10-29 mL/min) *Enoxaparin/Lovenox 30 mg SQ BID (WT < 150 kg, CrCl > 30 mL/min) AND/OR *Sequential Compression Device (SCD) 5 or more Highest Order ONE of the following medications: *Heparin 5000 units SQ TID (Preferred with Epidurals) *Enoxaparin/Lovenox 40 mg SQ daily (WT < 150 kg, CrCl > 30 mL/min) *Enoxaparin/Lovenox 30 mg SQ daily (WT < 150 kg, CrCl > 10-29 mL/min) *Enoxaparin/Lovenox 30 mg SQ BID (WT < 150 kg, CrCl > 30 mL/min) AND *Sequential Compression Device (SCD) Assessment and Plan - Plan Assessment/plan: 1. Alcoholic cirrhosis/ascites/abdominal pain Ultrasound guided paracentesis pending Patient has been having difficulty establishing with a ply bander, Case management consulted for assistance 2. Osteomyelitis of the humerus Continue daptomycin 3. COPD/hypertension Patient not on any home medications Monitor FEN N.p.o. Electrolytes: As needed
[2017-12-05] MEDS ORDERED: LORazepam 1 MG Tablet PO PRN (01:14)
[2017-12-05] MEDS ORDERED: Haloperidol Inj 5 MG/ML Ampul IV.PUSH PRN (01:14)
[2017-12-05] MEDS ORDERED: DAPTOMYCIN 750 MG IV.SIG SCH (09:00)
[2017-12-05] MEDS ORDERED: ALBUMIN HUMAN 25% IV.SIG ONE (11:00)
[2017-12-05] MEDS: Furosemide 40 MG Tablet PO SCH (11:34)
--- NOTE | 2017-12-05 12:03 | P.CONGI ---
History of Present Illness Consult date: 12/05/17 Consult reason: Cirrhosis Chief complaint: Ascites due to Liver Cirrhosis History of Present Illness: This is a 53-year-old male who was diagnosed with cirrhosis noted to be likely secondary to EtOH abuse in August of this year when he was hospitalized for a left humeral fracture at [facility]. After discharge patient was advised to follow-up with gastroenterology outpatient regarding further cirrhosis work up. Patient has been having issues with insurance, was just approved within the last day or 2 for insurance. 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 Pt reports he was supposed to have an outpatient paracentesis done that was ordered by his PCP, however when his insurance got approved he required a new order. He states the abdominal swelling and pain became so unbearable that he was advised to come to the ER for admission. Pt seen after paracentesis in which he had 1200 mL removed, currently denies any continued abdominal pain. Was also having nausea and vomiting prior to paracentesis, but denies any continued nausea. States no BM in 8 days. His has been noticing that he has been increasingly confused for the past few days. Pt was drinking 750 mL of vodka daily from 2011 until August when he was diagnosed with cirrhosis. Pt has never seen GI doctor in the past. Denies family history of liver issues. Has never had EGD or colonoscopy. <Geeta Mckeon - Last Filed: 12/05/17 12:30> Review of Systems Gastrointestinal: Reports abdominal pain, Reports constipation, Reports nausea, Reports vomiting, Denies black, tarry stools, Denies bright, red blood in stools , Denies coffee ground vomit <Geeta Mckeon - Last Filed: 12/05/17 12:30> PMFSH - History History Provided By: Patient, Family Member - Medical History Medical History: Medical History (Last Updated 12/05/17 @ 00:48 by Gabbi Osborne MD) Hypertension Surgical history unknown COPD (chronic obstructive pulmonary disease) Humeral fracture Incontinence of bowel Liver failure - Family History Family History: Family History (Last Reviewed 12/05/17 @ 00:48 by Gabbi Osborne MD) Other Osteoarthritis - Tobacco History Second Hand Smoke Exposure: Yes Tobacco Use In Past 30 Days: Yes Smoking Status: Heavy tobacco smoker Tobacco Type: Cigarettes - Alcohol History How Often Do You Have a Drink Containing Alcohol: Never - Substance Use History Substance History: Past History - Travel History Recent Travel in the [place] Within the Last 8 Weeks: No Recent Travel Out of the Country Within the Last 8 Weeks: No - Immunization History Tetanus Immunization: <5 Years <Geeta Mckeon - Last Filed: 12/05/17 12:30> - Medical History Medical History: Medical History (Last Updated 12/05/17 @ 00:48 by Gabbi Osborne MD) Hypertension Surgical history unknown COPD (chronic obstructive pulmonary disease) Humeral fracture Incontinence of bowel Liver failure - Family History Family History: Family History (Last Reviewed 12/05/17 @ 00:48 by Gabbi Osborne MD) Other Osteoarthritis <Graciela Merida - Last Filed: 12/05/17 17:07> Medications and Allergies Active Medications: Active Medications Clonidine HCl (Catapres) 0.1 mg PO Q6H PRN PRN Reason: For SBP >/= 180, DBP >/= 100 Flumazenil (Romazecon Inj) 0.2 mg IV.PUSH Q1M PRN PRN Reason: OVERSEDATION Furosemide (Lasix) 40 mg PO DAILY LE Last Admin: 12/05/17 11:34 Dose: 40 mg Haloperidol Lactate (Haldol Inj) 1 mg IV.PUSH Q15M PRN PRN Reason: for severe agitation Daptomycin 750 mg/ Sodium (Chloride) 100 mls @ 200 mls/hr IV.SIG Q24H LE Multivitamins 10 ml/ Folic (Acid 1 mg/ Sodium Chloride) 510.2 mls @ 125 mls/hr IV.SIG DAILY LE Stop: 12/10/17 08:59 Albumin Human (Flexbumin 25% Inj) 300 mls @ 60 mls/hr IV.SIG ONCE ONE; Protocol Stop: 12/05/17 15:59 Last Admin: 12/05/17 11:35 Dose: 60 mls/hr Lactulose (Lactulose Liq) 30 ml PO DAILY PRN PRN Reason: SEVERE CONSITIPATION Lorazepam (Ativan) 1 mg PO Q4H PRN PRN Reason: for CIWA 8-10 Lorazepam (Ativan) 2 mg PO Q2H PRN PRN Reason: for CIWA 11-14 Lorazepam (Ativan Inj) 2 mg IV.PUSH Q2H PRN PRN Reason: for CIWA 11-14 Lorazepam (Ativan Inj) 2 mg IV.PUSH Q1H PRN PRN Reason: for CIWA 15-20 Lorazepam (Ativan Inj) 2 mg IV.PUSH Q15M PRN PRN Reason: for CIWA > 20 Lorazepam (Ativan Inj) 1 mg IV.PUSH Q4H PRN PRN Reason: for CIWA 8-10 Ondansetron HCl (Zofran Inj) 4 mg IV.PUSH Q6H PRN PRN Reason: NAUSEA OR VOMITING Sodium Chloride (Ns Flush) 2 ml IV.FLUSH UNSCH PRN PRN Reason: FLUSH AFTER USING IV ACCESS Spironolactone (Aldactone) 100 mg PO DAILY [facility] Last Admin: 12/05/17 11:34 Dose: 100 mg Thiamine HCl (Vitamin B1) 100 mg PO DAILY [facility] <Geeta Mckeon - Last Filed: 12/05/17 12:30> Active Medications: Active Medications Clonidine HCl (Catapres) 0.1 mg PO Q6H PRN PRN Reason: For SBP >/= 180, DBP >/= 100 Flumazenil (Romazecon Inj) 0.2 mg IV.PUSH Q1M PRN PRN Reason: OVERSEDATION Furosemide (Lasix) 40 mg PO DAILY [facility] Last Admin: 12/05/17 11:34 Dose: 40 mg Haloperidol Lactate (Haldol Inj) 1 mg IV.PUSH Q15M PRN PRN Reason: for severe agitation Daptomycin 750 mg/ Sodium (Chloride) 100 mls @ 200 mls/hr IV.SIG Q24H [facility] Multivitamins 10 ml/ Folic (Acid 1 mg/ Sodium Chloride) 510.2 mls @ 125 mls/hr IV.SIG DAILY [facility] Stop: 12/10/17 08:59 Last Admin: 12/05/17 16:29 Dose: 125 mls/hr Lactulose (Lactulose Liq) 30 ml PO DAILY PRN PRN Reason: SEVERE CONSITIPATION Lorazepam (Ativan) 1 mg PO Q4H PRN PRN Reason: for CIWA 8-10 Lorazepam (Ativan) 2 mg PO Q2H PRN PRN Reason: for CIWA 11-14 Lorazepam (Ativan Inj) 2 mg IV.PUSH Q2H PRN PRN Reason: for CIWA 11-14 Lorazepam (Ativan Inj) 2 mg IV.PUSH Q1H PRN PRN Reason: for CIWA 15-20 Lorazepam (Ativan Inj) 2 mg IV.PUSH Q15M PRN PRN Reason: for CIWA > 20 Lorazepam (Ativan Inj) 1 mg IV.PUSH Q4H PRN PRN Reason: for CIWA 8-10 Ondansetron HCl (Zofran Inj) 4 mg IV.PUSH Q6H PRN PRN Reason: NAUSEA OR VOMITING Sodium Chloride (Ns Flush) 2 ml IV.FLUSH UNSCH PRN PRN Reason: FLUSH AFTER USING IV ACCESS Spironolactone (Aldactone) 100 mg PO DAILY [facility] Last Admin: 12/05/17 11:34 Dose: 100 mg Thiamine HCl (Vitamin B1) 100 mg PO DAILY [facility] <Graciela Merida - Last Filed: 12/05/17 17:07> Allergies Allergy/AdvReac Type Severity Reaction Status Date / Time No Known Allergies Allergy Verified 12/04/17 18:52 Home Medications Medication Instructions Recorded Confirmed Type daptomycin 750 mg IV DAILY 11/10/17 12/04/17 History Exam Vital signs: Vital Signs 12/04/17 18:13 12/04/17 20:00 12/04/17 22:00 Temperature 97.7 F Pulse Rate 93 H 86 78 Respiratory Rate 16 16 18 Blood Pressure 153/106 H 125/96 H 117/79 Pulse Oximetry 96 96 95 12/05/17 00:00 12/05/17 01:30 12/05/17 04:00 Temperature 98.2 F Pulse Rate 82 87 93 H Respiratory Rate 18 17 Blood Pressure 119/75 115/77 Pulse Oximetry 95 92 L 12/05/17 07:49 12/05/17 08:45 12/05/17 10:55 Temperature 98.0 F 99.0 F 98.8 F Pulse Rate 83 98 H 72 Respiratory Rate 18 18 18 Blood Pressure 110/79 144/110 H 97/69 L Pulse Oximetry 95 93 L 94 L 12/05/17 11:10 Temperature 98.9 F Pulse Rate 74 Respiratory Rate 18 Blood Pressure 98/68 L Pulse Oximetry 95 Intake & Output 12/04/17 12/05/17 12/05/17 18:59 06:59 18:59 Weight 75 kg 75 kg Other: Weight On Admission 75 kg - Constitutional no acute distress - Routine HEENT Exam Head: Present: normocephalic, atraumatic Eye: Present: conjunctival icterus - Routine Respiratory Exam Absent: accessory muscle use - Routine Cardiovascular Exam Present: RRR - Routine Abdominal Exam Present: soft, normoactive bowel sounds, distended (mildly ). Absent: tenderness - Routine Extremities Exam Present: edema - Routine Skin Exam Present: jaundice - Routine Neurological Exam Present: alert, oriented X3 <Geeta Mckeon - Last Filed: 12/05/17 12:30> Vital signs: Vital Signs 12/04/17 18:13 12/04/17 20:00 12/04/17 22:00 Temperature 97.7 F Pulse Rate 93 H 86 78 Respiratory Rate 16 16 18 Blood Pressure 153/106 H 125/96 H 117/79 Pulse Oximetry 96 96 95 12/05/17 00:00 12/05/17 01:30 12/05/17 04:00 Temperature 98.2 F Pulse Rate 82 87 93 H Respiratory Rate 18 17 Blood Pressure 119/75 115/77 Pulse Oximetry 95 92 L 12/05/17 07:49 12/05/17 08:45 12/05/17 10:55 Temperature 98.0 F 99.0 F 98.8 F Pulse Rate 83 98 H 72 Respiratory Rate 18 18 18 Blood Pressure 110/79 144/110 H 97/69 L Pulse Oximetry 95 93 L 94 L 12/05/17 11:10 12/05/17 12:06 12/05/17 16:14 Temperature 98.9 F 98.6 F 98.1 F Pulse Rate 74 79 81 Respiratory Rate 18 20 Blood Pressure 98/68 L 115/78 101/71 Pulse Oximetry 95 97 95 Intake & Output 12/04/17 12/05/17 12/05/17 18:59 06:59 18:59 Intake Total 300 / 300 Balance 300 / 300 Weight 75 kg 75 kg Intake: IV 300 / 300 Flexbumin 25% Inj 300 ML @ 60 300 / 300 mls/hr IV.SIG ONCE ONE Rx#: [id number] Other: Weight On Admission 75 kg <Graciela Merida - Last Filed: 12/05/17 17:07> Results - Labs CBC & Chem 7: 12/04/17 19:35 10/10/18 19:35 Labs: Laboratory Results - last 24 hr 12/04/17 12/04/17 12/04/17 19:35 19:35 19:35 WBC 6.5 RBC 4.66 Hgb 13.8 Hct 41.4 MCV 88.8 MCH 29.5 MCHC 33.3 RDW 14.0 Plt Count 162 MPV 8.4 Neut % (Auto) 46.2 Lymph % (Auto) 40.5 [place] % (Auto) 8.5 H Eos % (Auto) 3.9 Baso % (Auto) 0.9 Neut # (Auto) 3.0 Lymph # (Auto) 2.6 [place] # (Auto) 0.5 Eos # (Auto) 0.2 Baso # (Auto) 0.1 WBC Differential . Differential Comment Auto diff final PT 13.6 H INR 1.3 APTT 36.9 H Sodium 134 L Potassium 4.4 Chloride 100 Carbon Dioxide 26.7 Anion Gap 7 BUN 10 Creatinine 0.72 Estimated GFR Greater than 89 Random Glucose 86 Calcium 8.3 L Total Bilirubin 0.4 AST 41 H ALT 24 Alkaline Phosphatase 185 H Ammonia Troponin I Less than 0.02 L Total Protein 6.4 Albumin 2.4 L Serum Alcohol Less than 3 12/04/17 20:13 WBC RBC Hgb Hct MCV MCH MCHC RDW Plt Count MPV Neut % (Auto) Lymph % (Auto) [place] % (Auto) Eos % (Auto) Baso % (Auto) Neut # (Auto) Lymph # (Auto) [place] # (Auto) Eos # (Auto) Baso # (Auto) WBC Differential Differential Comment PT INR APTT Sodium Potassium Chloride Carbon Dioxide Anion Gap BUN Creatinine Estimated GFR Random Glucose Calcium Total Bilirubin AST ALT Alkaline Phosphatase Ammonia 23 Troponin I Total Protein Albumin Serum Alcohol - Imaging Impressions Chest X-Ray 12/04/17 19:16 CONCLUSION: No acute cardiopulmonary process. Venous Doppler Study 12/04/17 19:26 CONCLUSION: No DVT. <Geeta Mckeon - Last Filed: 12/05/17 12:30> - Labs CBC & Chem 7: 12/04/17 19:35 12/04/17 19:35 Labs: Laboratory Results - last 24 hr 12/04/17 12/04/17 12/04/17 19:35 19:35 19:35 WBC 6.5 RBC 4.66 Hgb 13.8 Hct 41.4 MCV 88.8 MCH 29.5 MCHC 33.3 RDW 14.0 Plt Count 162 MPV 8.4 Neut % (Auto) 46.2 Lymph % (Auto) 40.5 [place] % (Auto) 8.5 H Eos % (Auto) 3.9 Baso % (Auto) 0.9 Neut # (Auto) 3.0 Lymph # (Auto) 2.6 [place] # (Auto) 0.5 Eos # (Auto) 0.2 Baso # (Auto) 0.1 WBC Differential . Differential Comment Auto diff final PT 13.6 H INR 1.3 APTT 36.9 H Sodium 134 L Potassium 4.4 Chloride 100 Carbon Dioxide 26.7 Anion Gap 7 BUN 10 Creatinine 0.72 Estimated GFR Greater than 89 Random Glucose 86 Calcium 8.3 L Iron TIBC % Saturation Ferritin Total Bilirubin 0.4 AST 41 H ALT 24 Alkaline Phosphatase 185 H Ammonia Troponin I Less than 0.02 L Total Protein 6.4 Albumin 2.4 L Serum Alcohol Less than 3 Hepatitis A IgM Ab Hep Bs Antigen Hep B Core IgM Ab Hep C IgG Ab 12/04/17 12/05/17 12/05/17 20:13 13:15 13:15 WBC RBC Hgb Hct MCV MCH MCHC RDW Plt Count MPV Neut % (Auto) Lymph % (Auto) [place] % (Auto) Eos % (Auto) Baso % (Auto) Neut # (Auto) Lymph # (Auto) [place] # (Auto) Eos # (Auto) Baso # (Auto) WBC Differential Differential Comment PT INR APTT Sodium Potassium Chloride Carbon Dioxide Anion Gap BUN Creatinine Estimated GFR Random Glucose Calcium Iron 39 L TIBC 224 L % Saturation 17.4 L Ferritin 115 Total Bilirubin AST ALT Alkaline Phosphatase Ammonia 23 Troponin I Total Protein Albumin Serum Alcohol Hepatitis A IgM Ab Nonreactive Hep Bs Antigen Nonreactive Hep B Core IgM Ab Nonreactive Hep C IgG Ab Nonreactive - Imaging Impressions Chest X-Ray 12/04/17 19:16 CONCLUSION: No acute cardiopulmonary process. Venous Doppler Study 12/04/17 19:26 CONCLUSION: No DVT. Paracentesis Ultrasound 12/05/17 00:00 CONCLUSION: 1. Uncomplicated paracentesis <Graciela Merida - Last Filed: 12/05/17 17:07> Assessment and Plan - Plan Assessment Cirrhosis likely secondary to ETOH abuse with complications of portal hypertension- Drinking 750 mL of vodka daily from 2011 until August when he was diagnosed with cirrhosis. Pt complaining of abdominal swelling and pain on admission S/P paracentesis with 1200 mL of fluid removed, has had three previous paracentesis done in the month of October. Complaining of bilateral lower extremity edema. Denies family history of liver issues. Has never seen GI doctor. Has never had EGD or colonoscopy. Nausea/vomiting - states prior to paracentesis, now denies any nausea. Constipation- No BM in 8 days. Unintentional weight loss- states about 100 lbs over the past 6-[address] abd/pelvis W IV contrast (10/2017) Cirrhotic liver with large volume ascites. Scattered diverticulosis. Renal low-densities likely cysts. Plan: EGD/colonoscopy tomorrow Obtain consent Clear liquids today Golytely prep NPO after MN Liver work up Lactulose Diuretics S/P paracentesis Albumin replacement Continue with ETOH cessations Further recommendations to follow This patient has been seen and examined by myself and Dr. Merida this note was written on his behalf <Geeta Mckeon - Last Filed: 12/05/17 12:30> - Plan Seen and examined with [facility] STACKER, feels better s/p paracentesis/. Egd/colonoscopy planned for tomorrow. <Graciela Merida - Last Filed: 12/05/17 17:07>
[2017-12-05 13:52] LABS: % Iron Saturation 17.4 % (20-50)
--- NOTE | 2017-12-05 14:37 | US ---
EXAM DATE: 12/05/2017 12:00 AM EDT AGE/SEX: 52 years / Male INDICATIONS: Ascites. CLINICAL DATA: This is the patient's subsequent encounter. Patient reports that signs and symptoms h ave been present for 2 weeks and indicates a pain score of 4/10. MEDICAL/SURGICAL HISTORY: Cirrhosis. COPD. Humeral fracture with osteomyelitis. End stage liver disease. Ascites. . Paracentesis. COMPARISON: [facility] [place] ABDOMEN LOWER LIMITED, 12/03/2017. . [place]UID: [place] [address] cc of clear, yellow fluid was removed. Fluid was discarded. Paracentesis was th erapeutic only. . . TECHNIQUE: Ultrasound guidance for abdominal paracentesis. Paracentesis. The risks, benefits, and alternatives to ultrasound guided paracentesis were explained to the patient in detail including the risk of bleeding and infection. Written and verbal informed consent was obt ained. With the patient on the ultrasound table, ultrasound imaging was used to select the most appropriate approach for paracentesis. Overlying skin was prepped and draped in the usual sterile fashion and wi th a local anesthetic, a dermatotomy was made with an 11 blade scalpel. A 6 [place] [id number] ca theter was introduced into the peritoneal cavity and fluid was collected. Post procedure scanning reveals no hematoma or other complication. The patient tolerated the procedu re well and left the ultrasound suite in stable condition. FINDINGS: Adequate fluid is present for paracentesis CONCLUSION: 1. Uncomplicated paracentesis Electronically signed by: Abelino Carpio MD 12/05/2017 2:36 PM EDT
[2017-12-05 14:47] LABS: Hepatitis A IgM Antibody Nonreactive (Nonreactive); Hepatitits B Surface Antigen Nonreactive (Nonreactive)
[2017-12-05] MEDS ORDERED: PEG 3350/E-Lyte Soln 4000 ML Bottle PO ONE (16:00)
[2017-12-05] MEDS: Multivitamin Inj 10 ML, Folic Acid Inj 1 MG in Sodium Chlor 0.9% Inj 500 ML IV.SIG SCH (16:29)
--- NOTE | 2017-12-05 17:54 | P.CONID ---
History of Present Illness Service: ID Consult date: 12/05/17 Requesting Physician: Gabbi Osborne Reason for Consult: L humerus osteomyelitis Primary Care Provider: Christyghanshyam Kaur History of Present Illness: 52 yo male known to me h/o ETOH induced liver cirrhosis, sp L humerus fracture with subsequent development of chronic osteomyelits with a sinus tract formation Pt underwent Irrigation and debridement left arm including skin, subcutaneous tissue, and bone at site of an open fracture and Insertion of antibiotic beads on 11/01/[address] Rita loomis shower acute/cjhronic osteo, cultures were negative He was discharged on IV abx thru PICC line and is doing good (daptomycin) Stitches are removed He came in for tight ascites and underwent paracenthesis No fever, no leukocytosisa Review of Systems All other systems reviewed negative except as stated in HPI PMFSH - History History Provided By: Patient, Family Member - Medical History Medical History: Medical History (Last Reviewed 12/05/17 @ 18:00 by Bertha Russell MD) Hypertension Surgical history unknown COPD (chronic obstructive pulmonary disease) Humeral fracture Incontinence of bowel Liver failure - Family History Family History: Family History (Last Reviewed 12/05/17 @ 18:00 by Bertha Russell MD) Other Osteoarthritis - Social History I have reviewed the patient's Social History: Yes - Tobacco History Second Hand Smoke Exposure: Yes Tobacco Use In Past 30 Days: Yes Smoking Status: Heavy tobacco smoker Tobacco Type: Cigarettes - Alcohol History How Often Do You Have a Drink Containing Alcohol: Never - Substance Use History Substance History: Past History - Travel History Recent Travel in the [place] Within the Last 8 Weeks: No Recent Travel Out of the Country Within the Last 8 Weeks: No - Immunization History Tetanus Immunization: <5 Years Medications and Allergies Active Medications: Active Medications Clonidine HCl (Catapres) 0.1 mg PO Q6H PRN PRN Reason: For SBP >/= 180, DBP >/= 100 Flumazenil (Romazecon Inj) 0.2 mg IV.PUSH Q1M PRN PRN Reason: OVERSEDATION Furosemide (Lasix) 40 mg PO DAILY LE Last Admin: 12/05/17 11:34 Dose: 40 mg Haloperidol Lactate (Haldol Inj) 1 mg IV.PUSH Q15M PRN PRN Reason: for severe agitation Daptomycin 750 mg/ Sodium (Chloride) 100 mls @ 200 mls/hr IV.SIG Q24H LE Multivitamins 10 ml/ Folic (Acid 1 mg/ Sodium Chloride) 510.2 mls @ 125 mls/hr IV.SIG DAILY LE Stop: 12/10/17 08:59 Last Admin: 12/05/17 16:29 Dose: 125 mls/hr Lactulose (Lactulose Liq) 30 ml PO DAILY PRN PRN Reason: SEVERE CONSITIPATION Lorazepam (Ativan) 1 mg PO Q4H PRN PRN Reason: for CIWA 8-10 Lorazepam (Ativan) 2 mg PO Q2H PRN PRN Reason: for CIWA 11-14 Lorazepam (Ativan Inj) 2 mg IV.PUSH Q2H PRN PRN Reason: for CIWA 11-14 Lorazepam (Ativan Inj) 2 mg IV.PUSH Q1H PRN PRN Reason: for CIWA 15-20 Lorazepam (Ativan Inj) 2 mg IV.PUSH Q15M PRN PRN Reason: for CIWA > 20 Lorazepam (Ativan Inj) 1 mg IV.PUSH Q4H PRN PRN Reason: for CIWA 8-10 Ondansetron HCl (Zofran Inj) 4 mg IV.PUSH Q6H PRN PRN Reason: NAUSEA OR VOMITING Sodium Chloride (Ns Flush) 2 ml IV.FLUSH UNSCH PRN PRN Reason: FLUSH AFTER USING IV ACCESS Spironolactone (Aldactone) 100 mg PO DAILY LE Last Admin: 12/05/17 11:34 Dose: 100 mg Thiamine HCl (Vitamin B1) 100 mg PO DAILY [facility] Allergies Allergy/AdvReac Type Severity Reaction Status Date / Time No Known Allergies Allergy Verified 12/04/17 18:52 Home Medications Medication Instructions Recorded Confirmed Type daptomycin 750 mg IV DAILY 11/10/17 12/04/17 History Exam Vital signs: Vital Signs 12/04/17 18:13 12/04/17 20:00 12/04/17 22:00 Temperature 97.7 F Pulse Rate 93 H 86 78 Respiratory Rate 16 16 18 Blood Pressure 153/106 H 125/96 H 117/79 Pulse Oximetry 96 96 95 12/05/17 00:00 12/05/17 01:30 12/05/17 04:00 Temperature 98.2 F Pulse Rate 82 87 93 H Respiratory Rate 18 17 Blood Pressure 119/75 115/77 Pulse Oximetry 95 92 L 12/05/17 07:49 12/05/17 08:45 12/05/17 10:55 Temperature 98.0 F 99.0 F 98.8 F Pulse Rate 83 98 H 72 Respiratory Rate 18 18 18 Blood Pressure 110/79 144/110 H 97/69 L Pulse Oximetry 95 93 L 94 L 12/05/17 11:10 12/05/17 12:06 12/05/17 16:14 Temperature 98.9 F 98.6 F 98.1 F Pulse Rate 74 79 81 Respiratory Rate 18 20 Blood Pressure 98/68 L 115/78 101/71 Pulse Oximetry 95 97 95 Intake & Output 12/04/17 12/05/17 12/05/17 18:59 06:59 18:59 Intake Total 300 / 300 Balance 300 / 300 Weight 75 kg 75 kg Intake: IV 300 / 300 Flexbumin 25% Inj 300 ML @ 60 300 / 300 mls/hr IV.SIG ONCE ONE Rx#: [id number] Other: Weight On Admission 75 kg - Constitutional no acute distress, thin - Routine HEENT Exam Head: Present: normocephalic, atraumatic Eye: Present: EOMI, PERRL ENT: Present: mucous membranes moist, oropharynx clear - Routine Neck Exam Present: supple, full ROM - Routine Respiratory Exam Present: CTA bilaterally. Absent: respiratory distress, rhonchi, stridor - Routine Cardiovascular Exam Present: RRR, S1, S2. Absent: murmur, gallop, rubs - Routine Abdominal Exam Present: soft, normoactive bowel sounds. Absent: tenderness, distended, organomegaly, mass - Routine Extremities Exam Absent: cyanosis, clubbing, edema Comments: L humerus incsiion well healed excep small opening in the center of incision - Routine Skin Exam Present: dry, warm. Absent: rash - Routine Neurological Exam Present: alert, oriented X3, moving all extremities, vision grossly intact, hearing grossly intact, normal speech - Routine Psychiatric Exam Present: normal affect, cooperative Results - Labs CBC & Chem 7: 12/04/17 19:35 12/04/17 19:35 Labs: Laboratory Results - last 24 hr 12/04/17 12/04/17 12/04/17 19:35 19:35 19:35 WBC 6.5 RBC 4.66 Hgb 13.8 Hct 41.4 MCV 88.8 MCH 29.5 MCHC 33.3 RDW 14.0 Plt Count 162 MPV 8.4 Neut % (Auto) 46.2 Lymph % (Auto) 40.5 [place] % (Auto) 8.5 H Eos % (Auto) 3.9 Baso % (Auto) 0.9 Neut # (Auto) 3.0 Lymph # (Auto) 2.6 [place] # (Auto) 0.5 Eos # (Auto) 0.2 Baso # (Auto) 0.1 WBC Differential . Differential Comment Auto diff final PT 13.6 H INR 1.3 APTT 36.9 H Sodium 134 L Potassium 4.4 Chloride 100 Carbon Dioxide 26.7 Anion Gap 7 BUN 10 Creatinine 0.72 Estimated GFR Greater than 89 Random Glucose 86 Calcium 8.3 L Iron TIBC % Saturation Ferritin Total Bilirubin 0.4 AST 41 H ALT 24 Alkaline Phosphatase 185 H Ammonia Troponin I Less than 0.02 L Total Protein 6.4 Albumin 2.4 L Serum Alcohol Less than 3 Hepatitis A IgM Ab Hep Bs Antigen Hep B Core IgM Ab Hep C IgG Ab 12/04/17 12/05/17 12/05/17 20:13 13:15 13:15 WBC RBC Hgb Hct MCV MCH MCHC RDW Plt Count MPV Neut % (Auto) Lymph % (Auto) [place] % (Auto) Eos % (Auto) Baso % (Auto) Neut # (Auto) Lymph # (Auto) [place] # (Auto) Eos # (Auto) Baso # (Auto) WBC Differential Differential Comment PT INR APTT Sodium Potassium Chloride Carbon Dioxide Anion Gap BUN Creatinine Estimated GFR Random Glucose Calcium Iron 39 L TIBC 224 L % Saturation 17.4 L Ferritin 115 Total Bilirubin AST ALT Alkaline Phosphatase Ammonia 23 Troponin I Total Protein Albumin Serum Alcohol Hepatitis A IgM Ab Nonreactive Hep Bs Antigen Nonreactive Hep B Core IgM Ab Nonreactive Hep C IgG Ab Nonreactive - Imaging Impressions Chest X-Ray 12/04/17 19:16 CONCLUSION: No acute cardiopulmonary process. Venous Doppler Study 12/04/17 19:26 CONCLUSION: No DVT. Paracentesis Ultrasound 12/05/17 00:00 CONCLUSION: 1. Uncomplicated paracentesis Assessment and Plan - Plan L humerus chronic osteomyelitis with sinus tract formation Culture negative osteomyelitis ESLD Asdcites sp paracenthesis cont daptomycin thru 12/30/17 fu CKs levels weekly
[2017-12-05] MEDS: DAPTOmycin Inj 750 MG in Sodium Chlor 0.9% Inj 100 ML IV.SIG SCH (21:15)
[2017-12-06 07:32] LABS: Baso % (Auto) 0.5 % (0.0-2.0); Eos # (Auto) 0.2 th/mm3 (0.0-0.4); Eos % (Auto) 3.8 % (0.0-4.0); Hematocrit 39.3 % (39.0-51.0); Hemoglobin 13.1 gm/dL (13.0-17.0); Lymph # (Auto) 2.1 th/mm3 (1.0-4.8); Lymph % (Auto) 46.1 % (9.0-44.0); Mean Corpuscular HGB Conc 33.4 % (32.0-36.0); Mean Corpuscular Hemoglobin 29.4 pg (27.0-34.0); Mean Corpuscular Volume 88.2 fL (80.0-100.0); Mean Platelet Volume 8.3 fL (7.0-11.0); Mono # (Auto) 0.4 th/mm3 (0.0-0.9); Mono % (Auto) 7.8 % (0.0-8.0); Neut # (Auto) 1.9 th/mm3 (1.8-7.7); Neut % (Auto) 41.8 % (16.0-70.0); Platelet Count 114 th/mm3 (150-450); Red Blood Count 4.45 mil/mm3 (4.50-5.90); Red Cell Distribution Width 13.5 % (11.6-17.2); White Blood Count 4.6 th/mm3 (4.0-11.0)
[2017-12-06 08:02] LABS: Alanine Aminotransferase 19 U/L (12-78); Albumin 2.4 g/dL (3.4-5.0); Alkaline Phosphatase 120 U/L (45-117); Anion Gap 9 meq/L (5-15); Aspartate Aminotransferase 28 U/L (15-37); Blood Urea Nitrogen 6 mg/dL (7-18); Calcium 7.5 mg/dL (8.5-10.1); Carbon Dioxide 27.2 meq/L (21.0-32.0); Chloride 101 meq/L (98-107); Glomerular Filtration Rate Greater Than 89 mL/min (>89); Glucose,Random 85 mg/dL (74-106); Potassium 3.7 meq/L (3.5-5.1); Sodium 137 meq/L (136-145); Total Protein 5.3 g/dL (6.4-8.2)
[2017-12-06] MEDS ORDERED: Phenylephrine/NS 1000 MCG/10ML Syringe IV.PUSH ONE (09:10)
--- NOTE | 2017-12-06 09:26 | GIPROC ---
[facility] [address] [facility]. [facility], [address] EGD PROCEDURE REPORT EXAM DATE: 12/06/2017 PATIENT NAME: Morris Ricardo MR #: [id number] BIRTHDATE: 1965 ATTENDING: Graciela Merida MD ORDER #: [id number] TAX EVALUATOR: Rosina Villeda STATUS: inpatient INDICATIONS: The patient is a 52 yr old male here for an EGD due to epigastric abdominal pain PROCEDURE PERFORMED: EGD w/ biopsy MEDICATIONS: None and Per Anesthesia. TOPICAL ANESTHETIC: CONSENT: The patient understands the risks and benefits of the procedure and understands that these risks include, but are not limited to: sedation, allergic reaction, infection, perforation and/or bleeding. Alternative means of evaluation and treatment include, among others: physical exam, x-rays, and/or surgical intervention. The patient elects to proceed with this endoscopic procedure. medical equipment was checked for proper function. Hand hygiene and appropriate measures for infection prevention was taken. After the risks, benefits and alternatives of the procedure were thoroughly explained, Informed consent was verified, confirmed and timeout was successfully executed by the treatment team. The patient was anesthetized with topical anesthesia and the EC-[id number] (Pedi C) endoscope was introduced through the mouth and advanced to the second portion of the duodenum. Retroflexed views revealed no abnormalities The gastroscope was then slowly withdrawn and removed. ESOPHAGUS: There was LA Class A esophagitis noted. There was a single small varix in the distal esophagus. There was evidence of prior scarring. STOMACH: There was moderate and erosive gastritis in the gastric antrum. A biopsy was performed using cold forceps. Sample sent for histology. ADVERSE EVENTS: There were no complications. IMPRESSIONS: 1. There was LA Class A esophagitis noted 2. There was gastritis in the gastric antrum; biopsy was performed 3. Retroflexed views revealed no abnormalities RECOMMENDATIONS: 1. Await biopsy results. Biopsy results will not be ready for 7-10 days. If you don't hear from us in two weeks, call our office for biopsy results. 2. Anti-reflux regimen 3. Continue PPI 4. Avoid NSAIDS PATIENT CONDITION: stable DISPOSITION: Inpatient REPEAT EXAM: Return 1 year EGD pending biopsy results Graciela Merida MD eSigned: Graciela Merida MD 12/06/2017 9:26 AM cc: PATIENT NAME: Morris Ricardo MR#: [id number]
--- NOTE | 2017-12-06 09:40 | GIPROC ---
[facility] [address] [facility]. [facility], [address] COLONOSCOPY PROCEDURE REPORT EXAM DATE: 12/06/2017 PATIENT NAME: Morris Ricardo MR #: [id number] BIRTHDATE: 1965 ENDOSCOPIST: Graciela Merida MD ORDER #: [id number] AGRICULTURAL EDUCATION INSTRUCTOR: Mayra Lilly RN STATUS: inpatient INDICATIONS: The patient is a 52 yr old male here for a colonoscopy due to abdominal pain PROCEDURE PERFORMED: Colonoscopy, diagnostic MEDICATIONS: None and Per Anesthesia. PREP QUALITY: The Murdock Bowel Prep Score was Right colon 2, Mid colon 2, and Left colon 2. Total = 6. PREP TYPE:GoLytely ESTIMATED BLOOD LOSS: None CONSENT: The patient understands the risks and benefits of the procedure and understands that these risks include, but are not limited to: sedation, allergic reaction, infection, perforation and/or bleeding. Alternative means of evaluation and treatment include, among others: physical exam, x-rays, and/or surgical intervention. The patient elects to proceed with this endoscopic procedure. medical equipment was checked for proper function. Hand hygiene and appropriate measures for infection prevention was taken. After the risks, benefits and alternatives of the procedure were thoroughly explained, Informed consent was verified, confirmed and timeout was successfully executed by the treatment team. A digital exam revealed external hemorrhoids The Pentax EC-3490Li endoscope was introduced through the anus and advanced to the cecum, which was identified by both the appendix and ileocecal valve. The instrument was then slowly withdrawn as the colon was fully examined. COLON FINDINGS: Mild diverticulosis was noted in the sigmoid colon. No bleeding was noted from the diverticulosis. Rectal varices. Retroflexed views revealed internal hemorrhoids and Retroflexed views revealed medium internal hemorrhoids The scope was then completely withdrawn from the patient and the procedure terminated. ADVERSE EVENTS: There were no complications. IMPRESSIONS: 1. Mild diverticulosis was noted in the sigmoid colon 2. Rectal varices 3. Retroflexed views revealed internal hemorrhoids 4. Retroflexed views revealed medium internal hemorrhoids 5. Revealed external hemorrhoids RECOMMENDATIONS: 1. Continue surveillance 2. Yearly hemoccult 3. High fiber diet RECALL: Return 3 years Colonoscopy Owens Fuad MD eSigned: Graciela Merida MD 12/06/2017 9:40 AM cc:
[2017-12-06] MEDS: Multivitamin Inj 10 ML, Folic Acid Inj 1 MG in Sodium Chlor 0.9% Inj 500 ML IV.SIG SCH (10:52)
[2017-12-06] MEDS: Furosemide 40 MG Tablet PO SCH (11:02)
[2017-12-06 14:17] LABS: Anti-Nuclear Antibody Screen Pos (Neg)
[2017-12-06 14:46] LABS: Alpha 1 Antitrypsin 171 mg/dL (100 - 190); Smooth Muscle Total Auto Abs Negative (Negative)
[2017-12-06] MEDS: DAPTOmycin Inj 750 MG in Sodium Chlor 0.9% Inj 100 ML IV.SIG SCH (16:12)
[2017-12-06 17:53] LABS: Ceruloplasmin 28 mg/dL (18-36)
--- NOTE | 2017-12-06 18:30 | P.PN ---
Subjective Interval history: Patient is seen sitting up in bed. He is concerned that his abdomen has once again become distended and firm. No chest pain or shortness of breath. No nausea or vomiting. He is tolerating his meals. Physical Exam Vital signs: Vital Signs 12/05/17 19:36 12/05/17 20:00 12/05/17 23:57 Temperature 98.7 F 98.7 F Pulse Rate 91 H 74 Respiratory Rate 16 16 Blood Pressure 116/68 115/66 Pulse Oximetry 96 94 L 94 L 12/06/17 03:58 12/06/17 07:35 12/06/17 08:00 Temperature 98.9 F 98.8 F Pulse Rate 78 82 Respiratory Rate 16 18 Blood Pressure 94/59 L 93/67 L Pulse Oximetry 94 L 94 L 94 L 12/06/17 09:53 12/06/17 12:00 12/06/17 16:00 Temperature 97.6 F 98.7 F 98.7 F Pulse Rate 65 82 71 Respiratory Rate 18 16 16 Blood Pressure 100/61 100/66 97/64 L Pulse Oximetry 96 96 Intake & Output 12/05/17 12/06/17 12/06/17 18:59 06:59 18:59 Intake Total 300 / 300 610.2 / 610.2 610.2 / 610.2 Balance 300 / 300 610.2 / 610.2 610.2 / 610.2 Intake: IV 300 / 300 610.2 / 610.2 610.2 / 610.2 Flexbumin 25% Inj 300 ML @ 60 300 / 300 mls/hr IV.SIG ONCE ONE Rx#: [id number] Cubicin Inj 750 MG In NS Inj 100 / 100 100 / 100 100 ML @ 200 mls/hr IV.SIG Q24H [facility] Rx#:[id number] MVI-12 Inj 10 ML Folvite Inj 1 510.2 / 510.2 510.2 / 510.2 MG In NS Inj 500 ML @ 125 mls/ hr IV.SIG DAILY [facility] Rx#: [id number] Other: Date of Last Bowel Movement 11/28/17 Narrative: GENERAL: thin, well-developed adult male in no obvious distress. SKIN: Warm and dry. HEAD: Atraumatic. Normocephalic. CARDIOVASCULAR: Regular rate and rhythm. RESPIRATORY: No accessory muscle use. Clear to auscultation. Breath sounds equal bilaterally. GASTROINTESTINAL: Abdomen soft, non-tender, distended. Positive bowel sounds. MUSCULOSKELETAL: Extremities without clubbing, cyanosis, or edema. No obvious deformities. NEUROLOGICAL: Awake and alert. No obvious cranial nerve deficits. Motor grossly within normal limits. Normal speech. - Urinary Catheter Management Indwelling Urethral Catheter Cath placed during this visit: no Reason for continuing: Acute urinary retention Results - Labs CBC & Chem 7: 12/06/17 06:42 12/06/17 06:42 Laboratory Results - last 24 hr 12/05/17 12/05/17 12/06/17 13:15 13:15 06:42 WBC 4.6 RBC 4.45 L Hgb 13.1 Hct 39.3 MCV 88.2 MCH 29.4 MCHC 33.4 RDW 13.5 Plt Count 114 L MPV 8.3 Neut % (Auto) 41.8 Lymph % (Auto) 46.1 H [place] % (Auto) 7.8 Eos % (Auto) 3.8 Baso % (Auto) 0.5 Neut # (Auto) 1.9 Lymph # (Auto) 2.1 [place] # (Auto) 0.4 Eos # (Auto) 0.2 Baso # (Auto) 0.0 WBC Differential . Differential Comment Auto diff final Sodium Potassium Chloride Carbon Dioxide Anion Gap BUN Creatinine Estimated GFR Random Glucose Calcium Total Bilirubin AST ALT Alkaline Phosphatase Total Protein Albumin Bbaoh-3-Gzqegtytccg 171 Ceruloplasmin 28 ALFREDO Screen Pos H Anti-Smooth Muscle Ab Negative 12/06/17 06:42 WBC RBC Hgb Hct MCV MCH MCHC RDW Plt Count MPV Neut % (Auto) Lymph % (Auto) [place] % (Auto) Eos % (Auto) Baso % (Auto) Neut # (Auto) Lymph # (Auto) [place] # (Auto) Eos # (Auto) Baso # (Auto) WBC Differential Differential Comment Sodium 137 Potassium 3.7 Chloride 101 Carbon Dioxide 27.2 Anion Gap 9 BUN 6 L Creatinine 0.60 Estimated GFR Greater than 89 Random Glucose 85 Calcium 7.5 L D Total Bilirubin 0.7 AST 28 ALT 19 Alkaline Phosphatase 120 H Total Protein 5.3 L D Albumin 2.4 L Dcjio-1-Coupnaznjxh Ceruloplasmin ALFREDO Screen Anti-Smooth Muscle Ab Assessment and Plan - Plan 52-year-old male with a history of of EtOH abuse and liver failure. Presents to the emergency room with abdominal distention and pain. Has a history of frequent paracentesis. Assessment/plan: 1. Alcoholic cirrhosis/ascites/abdominal pain -Paracentesis done 12/05 with 12 L removed. -GI consulted -workup of liver function pending. EGD and colonoscopy done . -Repeat ultrasound of abdomen in morning if indicated due to increasing distention 2. Osteomyelitis of the humerus -Continue daptomycin -ID consulted for continuation of care 3. COPD/hypertension -Patient not on any home medications -Monitor DVT prophylaxis: Patient is ambulatory Discharge planning: Likely home
[2017-12-07] MEDS: Furosemide 40 MG Tablet PO SCH (10:42)
[2017-12-07] MEDS: LORazepam 0.5 MG Tablet PO PRN ×2 (13:48→21:44)
--- NOTE | 2017-12-07 15:26 | P.PN ---
Physical Exam Vital signs: Vital Signs 12/06/17 16:00 12/06/17 20:00 12/06/17 23:32 Temperature 98.7 F 98.9 F 98.6 F Pulse Rate 71 65 81 Respiratory Rate 16 17 20 Blood Pressure 97/64 L 91/60 L 108/62 Pulse Oximetry 96 100 93 L 12/07/17 04:00 12/07/17 04:26 12/07/17 08:00 Temperature 98.2 F 97.9 F Pulse Rate 73 83 Respiratory Rate 18 18 Blood Pressure 99/66 L 119/83 Pulse Oximetry 94 L 94 L 95 12/07/17 12:00 Temperature 98.0 F Pulse Rate 94 H Respiratory Rate 18 Blood Pressure 131/83 Pulse Oximetry 96 Intake & Output 12/06/17 12/07/17 12/07/17 18:59 06:59 18:59 Intake Total 610.2 / 610.2 Output Total 475 / 475 Balance 610.2 / 610.2 -475 / -475 Intake: IV 610.2 / 610.2 Cubicin Inj 750 MG In NS Inj 100 / 100 100 ML @ 200 mls/hr IV.SIG Q24H [facility] Rx#:[id number] MVI-12 Inj 10 ML Folvite Inj 1 510.2 / 510.2 MG In NS Inj 500 ML @ 125 mls/ hr IV.SIG DAILY [facility] Rx#: [id number] Output: Urine 475 / 475 Other: Date of Last Bowel Movement 12/06/17 12/07/17 Narrative: GENERAL: thin, well-developed adult male in no obvious distress. SKIN: Warm and dry. HEAD: Atraumatic. Normocephalic. CARDIOVASCULAR: Regular rate and rhythm. RESPIRATORY: No accessory muscle use. Clear to auscultation. Breath sounds equal bilaterally. GASTROINTESTINAL: Abdomen soft, non-tender, increasingly distended. Positive bowel sounds. MUSCULOSKELETAL: Extremities without clubbing, cyanosis, or edema. No obvious deformities. NEUROLOGICAL: Awake and alert. No obvious cranial nerve deficits. Motor grossly within normal limits. Normal speech. - Urinary Catheter Management Indwelling Urethral Catheter Cath placed during this visit: yes, but has since been removed by the nurse Reason for continuing: Decision to DC catheter Removal date: 12/07/17 Removal time: 14:08 Results - Labs CBC & Chem 7: 12/06/17 06:42 12/06/17 06:42 Laboratory Results - last 24 hr 12/05/17 13:15 Ceruloplasmin 28 Assessment and Plan - Plan 52-year-old male with a history of of EtOH abuse and liver failure. Presents to the emergency room with abdominal distention and pain. Has a history of frequent paracentesis. Assessment/plan: 1. Alcoholic cirrhosis/ascites/abdominal pain -Paracentesis done 12/05 with 12 L removed. -GI consulted -workup of liver function pending. EGD and colonoscopy done - no acute concerns. -Repeat ultrasound of abdomen if indicated due to increasing distention -continue Lasix and Aldactone -Consider hospice/palliative consult for possible better management of outpatient care vs trying to establish with primary (needing frequent paracentesis; pt understands this is not curable). 2. Osteomyelitis of the humerus -Continue daptomycin -has PICC -ID consulted for continuation of care 3. COPD/hypertension -Patient not on any home medications -HTN dx questionable -Monitor 4. Chelsi groin -nystatin cream DVT prophylaxis: Patient is ambulatory Discharge planning: Likely home
[2017-12-07] MEDS: DAPTOmycin Inj 750 MG in Sodium Chlor 0.9% Inj 100 ML IV.SIG SCH (16:29)
[2017-12-07] MEDS: Multivitamin Inj 10 ML, Folic Acid Inj 1 MG in Sodium Chlor 0.9% Inj 500 ML IV.SIG SCH (19:43)
[2017-12-08] MEDS: Furosemide 40 MG Tablet PO SCH (10:07)
[2017-12-08] MEDS: LORazepam 0.5 MG Tablet PO PRN ×3 (10:09→23:31)
--- NOTE | 2017-12-08 15:09 | P.PNIM ---
Subjective Interval history: Feels that his abdomen is more distended again today. Would like to see if he can receive home health care for IV infusion versus ambulatory infusion of IV antibiotics. He would like another paracentesis prior to discharge to home. Physical Exam Vital signs: Vital Signs 12/07/17 16:00 12/07/17 20:00 12/08/17 00:00 Temperature 98.1 F 98.7 F 98.5 F Pulse Rate 72 95 H 84 Respiratory Rate 18 17 17 Blood Pressure 101/62 132/91 H 108/63 Pulse Oximetry 97 96 96 12/08/17 08:00 12/08/17 12:00 Temperature 98.1 F 98.0 F Pulse Rate 86 75 Respiratory Rate 12 10 L Blood Pressure 115/67 108/71 Pulse Oximetry 94 L 95 Intake & Output 12/07/17 12/08/17 12/08/17 18:59 06:59 18:59 Intake Total 600 / 600 100 / 100 Output Total 475 / 475 Balance 125 / 125 100 / 100 Intake: IV 0 / 0 100 / 100 Cubicin Inj 750 MG In NS Inj 0 / 0 100 / 100 100 ML @ 200 mls/hr IV.SIG Q24H [facility] Rx#:[id number] Oral 600 / 600 Output: Urine 475 / 475 Other: # Voids 2 4 Date of Last Bowel Movement 12/07/17 12/07/17 12/07/17 Narrative: GENERAL: thin, well-developed adult male in no obvious distress. SKIN: Warm and dry. HEAD: Atraumatic. Normocephalic. CARDIOVASCULAR: Regular rate and rhythm. RESPIRATORY: No accessory muscle use. Clear to auscultation. Breath sounds equal bilaterally. GASTROINTESTINAL: Abdomen soft, non-tender, increasingly distended. Positive bowel sounds. MUSCULOSKELETAL: Extremities without clubbing, cyanosis, trace edema NEUROLOGICAL: Awake and alert. No obvious cranial nerve deficits. Motor grossly within normal limits. Normal speech. - Urinary Catheter Management Indwelling Urethral Catheter Cath placed during this visit: yes, but has since been removed by the nurse Reason for continuing: Decision to DC catheter Removal date: 12/07/17 Removal time: 14:08 Results - Labs CBC & Chem 7: 12/06/17 06:42 12/06/17 06:42 Laboratory Results - last 24 hr 12/05/17 13:15 Mitochondria M2 IgG Ab Less than 20.0 Assessment and Plan - Plan 52-year-old male with a history of of EtOH abuse and liver failure. Presents to the emergency room with abdominal distention and pain. Has a history of frequent paracentesis. Assessment/plan: 1. Alcoholic cirrhosis/ascites/abdominal pain -Paracentesis done 12/05 with 12 L removed. -GI consulted -workup of liver function pending. EGD and colonoscopy done - no acute concerns. -Repeat ultrasound of abdomen if indicated due to increasing distention to evaluate for repeat paracentesis -continue Lasix and Aldactone -Discussed with patient option of hospice/palliative consult for possible better management of outpatient care vs trying to establish with primary ( needing frequent paracentesis; pt understands this is not curable). At this time, patient wants to continue treatment to complete his antibiotics until December 30. He is open to future hospice if symptoms does not improve. 2. Osteomyelitis of the humerus -Continue daptomycin per infectious disease, Dr. Russell through December 30 -has PICC -ID consulted for continuation of care he would like to evaluate for home health care IV antibiotics versus ambulatory infusion center 3. COPD, chronic not in acute exacerbation -Patient not on any home medications 4. Chelsi groin -nystatin cream DVT prophylaxis: Patient is ambulatory, anticoagulation contraindicated for alcohol cirrhosis. Discharge Planning: Discharge in the morning after case management evaluate for possibility of home health care versus ambulatory infusion for IV antibiotics through December 30.
--- NOTE | 2017-12-08 15:36 | P.PNGI ---
Subjective Interval history: Pt is resting in bed, abd filled back up, feel he needs another drainage. No bleeding reported <Megan Sifuentes - Last Filed: 12/08/17 15:27> Physical Exam Vital signs: Vital Signs 12/07/17 16:00 12/07/17 20:00 12/08/17 00:00 Temperature 98.1 F 98.7 F 98.5 F Pulse Rate 72 95 H 84 Respiratory Rate 18 17 17 Blood Pressure 101/62 132/91 H 108/63 Pulse Oximetry 97 96 96 12/08/17 08:00 12/08/17 12:00 Temperature 98.1 F 98.0 F Pulse Rate 86 75 Respiratory Rate 12 10 L Blood Pressure 115/67 108/71 Pulse Oximetry 94 L 95 Intake & Output 12/07/17 12/08/17 12/08/17 18:59 06:59 18:59 Intake Total 600 / 600 100 / 100 Output Total 475 / 475 Balance 125 / 125 100 / 100 Intake: IV 0 / 0 100 / 100 Cubicin Inj 750 MG In NS Inj 0 / 0 100 / 100 100 ML @ 200 mls/hr IV.SIG Q24H [facility] Rx#:[id number] Oral 600 / 600 Output: Urine 475 / 475 Other: # Voids 2 4 Date of Last Bowel Movement 12/07/17 12/07/17 12/07/17 Narrative: GENERAL: thin, well-developed adult male in no obvious distress. SKIN: Warm and dry. HEAD: Atraumatic. Normocephalic. CARDIOVASCULAR: Regular rate and rhythm. RESPIRATORY: No accessory muscle use. Clear to auscultation. Breath sounds equal bilaterally. GASTROINTESTINAL: Abdomen soft, non-tender, ascites, Positive bowel sounds. MUSCULOSKELETAL: Extremities without clubbing, cyanosis, trace edema NEUROLOGICAL: Awake and alert. No obvious cranial nerve deficits. Motor grossly within normal limits. Normal speech. - Urinary Catheter Management Indwelling Urethral Catheter Cath placed during this visit: yes, but has since been removed by the nurse Reason for continuing: Decision to DC catheter Removal date: 12/07/17 Removal time: 14:08 <Megan Sifuentes - Last Filed: 12/08/17 15:27> Vital signs: Vital Signs 12/08/17 08:00 12/08/17 12:00 12/08/17 16:00 Temperature 98.1 F 98.0 F 98.0 F Pulse Rate 86 75 89 Respiratory Rate 12 10 L 12 Blood Pressure 115/67 108/71 124/76 Pulse Oximetry 94 L 95 95 12/08/17 20:00 12/09/17 00:00 Temperature 98.9 F 98.9 F Pulse Rate 77 87 Respiratory Rate 17 18 Blood Pressure 118/77 110/66 Pulse Oximetry 94 L 95 Intake & Output 12/08/17 12/08/17 12/09/17 06:59 18:59 06:59 Intake Total 100 / 100 820 / 820 Balance 100 / 100 820 / 820 Intake: IV 100 / 100 100 / 100 Cubicin Inj 750 MG In NS Inj 100 / 100 100 / 100 100 ML @ 200 mls/hr IV.SIG Q24H [facility] Rx#:[id number] Oral 720 / 720 Other: # Voids 4 3 6 Date of Last Bowel Movement 12/07/17 12/07/17 12/07/17 # Bowel Movements 1 - Urinary Catheter Management Indwelling Urethral Catheter Cath placed during this visit: no <Alysa Dorsey - Last Filed: 12/09/17 06:58> Results - Labs CBC & Chem 7: 12/06/17 06:42 12/06/17 06:42 Laboratory Results - last 24 hr 12/05/17 13:15 Mitochondria M2 IgG Ab Less than 20.0 <Megan Sifuentes - Last Filed: 12/08/17 15:27> - Labs CBC & Chem 7: 12/06/17 06:42 12/06/17 06:42 <Alysa Dorsey - Last Filed: 12/09/17 06:58> Assessment and Plan - Plan Cirrhosis likely secondary to ETOH abuse with complications of portal hypertension- Drinking 750 mL of vodka daily from 2011 until August when he was diagnosed with cirrhosis. Pt complaining of abdominal swelling and pain on admission S/P paracentesis with 1200 mL of fluid removed, has had three previous paracentesis done in the month of October. Complaining of bilateral lower extremity edema. Denies family history of liver issues. Has never seen GI doctor. Hepatitis panel negative, ALFREDO (+), titers pending, AMA, ASMA negative normal Fe and low iron saturation, A1A and ceruloplasmin normal S/P colonoscopy on 12/06/17 1. Mild diverticulosis was noted in the sigmoid colon 2. Rectal varices 3. Retroflexed views revealed internal hemorrhoids 4. Retroflexed views revealed medium internal hemorrhoids 5. Revealed external hemorrhoids S/P EGD on 12/06/17 1. There was LA Class A esophagitis noted 2. There was gastritis in the gastric antrum; biopsy was performed 3. Retroflexed views revealed no abnormalities Unintentional weight loss- states about 100 lbs over the past 6-[address] abd/pelvis W IV contrast (10/2017) Cirrhotic liver with large volume ascites. Scattered diverticulosis. Renal low-densities likely cysts. Plan: low salt diet Lactulose Diuretics paracentesis tomorrow Continue with ETOH cessations Further recommendations to follow This patient has been seen and examined by myself and Dr. Dorsey this note was written on her behalf <Megan Sifuentes - Last Filed: 12/08/17 15:27> - Attending Attestation seen, examined agree with above <Alysa Dorsey - Last Filed: 12/09/17 06:58>
[2017-12-08] MEDS: DAPTOmycin Inj 750 MG in Sodium Chlor 0.9% Inj 100 ML IV.SIG SCH (16:06)
[2017-12-09] MEDS: Furosemide 40 MG Tablet PO SCH (08:14)
[2017-12-09] MEDS: LORazepam 0.5 MG Tablet PO PRN ×2 (08:14→16:38)
--- NOTE | 2017-12-09 12:04 | P.PN ---
Subjective Interval history: Patient doing well. Patient reports increased abdominal fullness overnight with some mild pain. Patient reports that he tolerated dinner last night well and that he is voiding/stooling well. Physical Exam Vital signs: Vital Signs 12/08/17 12:00 12/08/17 16:00 12/08/17 20:00 Temperature 98.0 F 98.0 F 98.9 F Pulse Rate 75 89 77 Respiratory Rate 10 L 12 17 Blood Pressure 108/71 124/76 118/77 Pulse Oximetry 95 95 94 L 12/09/17 00:00 12/09/17 08:00 Temperature 98.9 F 98.3 F Pulse Rate 87 85 Respiratory Rate 18 18 Blood Pressure 110/66 105/70 Pulse Oximetry 95 97 Intake & Output 12/08/17 12/09/17 12/09/17 18:59 06:59 18:59 Intake Total 820 / 820 Balance 820 / 820 Intake: IV 100 / 100 Cubicin Inj 750 MG In NS Inj 100 / 100 100 ML @ 200 mls/hr IV.SIG Q24H [facility] Rx#:[id number] Oral 720 / 720 Other: # Voids 3 6 Date of Last Bowel Movement 12/07/17 12/07/17 # Bowel Movements 1 Narrative: GENERAL: thin, male, in NAD, lying comfortably in bed SKIN: Warm and dry. HEENT: Atraumatic. Normocephalic. PERRLA, MOM. CARDIOVASCULAR: Regular rate and rhythm. S1 and S2 no murmurs rubs or gallops. RESPIRATORY: Clear to auscultation x2 GASTROINTESTINAL: Abdomen distended, nontender to palpation, +fluid wave, + bowel sounds, Neg rebound MUSCULOSKELETAL: Extremities without clubbing, cyanosis, trace edema NEUROLOGICAL: AAOx3, no focal deficits. EXT: trace LE edema - Urinary Catheter Management Indwelling Urethral Catheter Cath placed during this visit: yes, but has since been removed by the nurse Reason for continuing: Decision to DC catheter Removal date: 12/07/17 Removal time: 14:08 Results - Labs CBC & Chem 7: 12/06/17 06:42 12/06/17 06:42 Assessment and Plan - Assessment (1) Hypertension Code(s): I10 - Essential (primary) hypertension Status: Acute (2) Fracture of humerus with nonunion Code(s): S42.309K - Unspecified fracture of shaft of humerus, unspecified arm, subsequent encounter for fracture with nonunion Status: Acute (3) Open fracture of humerus with nonunion Code(s): S42.309K - Unspecified fracture of shaft of humerus, unspecified arm, subsequent encounter for fracture with nonunion Status: Acute (4) Cirrhosis Code(s): K74.60 - Unspecified cirrhosis of liver Status: Acute (5) Osteomyelitis Code(s): M86.9 - Osteomyelitis, unspecified Status: Acute - Plan 52-year-old Male with a PMHx of COPD and EtOH abuse with Liver failure admitted for inpatient management of ascites status post paracentesis, HD #4 1. Alcoholic Cirrhosis/Ascites s/p Paracentesis on 12/05 with 12L removed Plan for paracentesis today per GI recommendations Managed by GI, appreciate assistance EGD and Colonoscopy on 12/06 with findings as below Continue Lasix and Aldactone Cont. MV and thiamine Discussed with patient option of hospice/palliative consult for possible better management of outpatient care vs trying to establish with primary (needing frequent paracentesis; pt understands this is not curable). S/P colonoscopy on 12/06/17 1. Mild diverticulosis was noted in the sigmoid colon 2. Rectal varices 3. Retroflexed views revealed internal hemorrhoids 4. Retroflexed views revealed medium internal hemorrhoids 5. Revealed external hemorrhoids S/P EGD on 12/06/17 1. There was LA Class A esophagitis noted 2. There was gastritis in the gastric antrum; biopsy was performed 3. Retroflexed views revealed no abnormalities Per GI Reccs 12/08: Plan: low salt diet Lactulose Diuretics paracentesis tomorrow Continue with ETOH cessations Further recommendations to follow 2. Osteomyelitis of the Humerus Continue Daptomycin per ID started 12/[address] Russell needs txt until December 30 Has PICC line ID consulted for continuation of care, he would like to be evaluated for home health care IV antibiotics versus ambulatory infusion center 3. COPD, chronic not in acute exacerbation Not on home medications or O2 4. Chelsi Groin Cont. Nystatin cream 5. DVT prophylaxis: ambulatory 6. GI PPX: PPI 7. Dispo: Paracentesis today per GI recommendations, discharge planning for home health care versus ambulatory infusion for IV antibiotics through December 30. 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
--- NOTE | 2017-12-09 15:47 | US ---
EXAM DATE: 12/09/2017 12:00 AM EDT AGE/SEX: 52 years / Male INDICATIONS: Ascites. CLINICAL DATA: This is the patient's subsequent encounter. Patient reports that signs and symptoms h ave been present for 4 - 6 days and indicates a pain score of 1/10. MEDICAL/SURGICAL HISTORY: . Cirrhosis. COPD. Humeral fracture with osteomyelitis. End stage yazmin er disease. Ascites. . Paracentesis. COMPARISON: [facility], US PARACENTESIS ABD W/IMAGE, 12/05/2017. . FLUID: Total volume of 7500 cc of clear, yellow fluid was removed. Fluid was discarded. Paracentesis was the rapeutic only. . . TECHNIQUE: Ultrasound guidance for abdominal paracentesis. Paracentesis. The risks, benefits, and alternatives to ultrasound guided paracentesis were explained to the patient in detail including the risk of bleeding and infection. Written and verbal informed consent was obt ained. With the patient on the ultrasound table, ultrasound imaging was used to select the most appropriate approach for paracentesis. Overlying skin was prepped and draped in the usual sterile fashion and wi th a local anesthetic, a dermatotomy was made with an 11 blade scalpel. A 6 Bengali Hmo-[id number] ca theter was introduced into the peritoneal cavity and fluid was collected. Post procedure scanning reveals no hematoma or other complication. The patient tolerated the procedu re well and left the ultrasound suite in stable condition. FINDINGS: Adequate fluid for paracentesis. CONCLUSION: 1. Uncomplicated paracentesis. Electronically signed by: Arnaldo Fenton MD 12/09/2017 3:45 PM EDT
[2017-12-09] MEDS ORDERED: Albumin Human 25% Inj 200 ML IV.SIG ONE (16:00)
[2017-12-09] MEDS: DAPTOmycin Inj 750 MG in Sodium Chlor 0.9% Inj 100 ML IV.SIG SCH (16:27)
[2017-12-09 16:46] LABS: Anti-Nuclear Antibody Pattern Speckled
--- NOTE | 2017-12-09 16:52 | P.PNGI ---
Subjective Interval history: Patient sitting up in chair, family member at bedside. Post paracentesis today with removal of 7200 mL's of peritoneal fluid. Denies abdominal pain and denies any noted bleeding. States tolerating diet well, reports soft brown BM this morning. <Genevieve Villafana - Last Filed: 12/09/17 16:38> Physical Exam Vital signs: Vital Signs 12/08/17 20:00 12/09/17 00:00 12/09/17 08:00 Temperature 98.9 F 98.9 F 98.3 F Pulse Rate 77 87 85 Respiratory Rate 17 18 18 Blood Pressure 118/77 110/66 105/70 Pulse Oximetry 94 L 95 97 12/09/17 12:56 Temperature 97.7 F Pulse Rate 90 Respiratory Rate 16 Blood Pressure 109/76 Pulse Oximetry 96 Intake & Output 12/08/17 12/09/17 12/09/17 18:59 06:59 18:59 Intake Total 820 / 820 Balance 820 / 820 Intake: IV 100 / 100 Cubicin Inj 750 MG In NS Inj 100 / 100 100 ML @ 200 mls/hr IV.SIG Q24H [facility] Rx#:[id number] Oral 720 / 720 Other: # Voids 3 6 Date of Last Bowel Movement 12/07/17 12/07/17 # Bowel Movements 1 - Constitutional no acute distress - Routine HEENT Exam Head: Present: normocephalic - Routine Respiratory Exam Present: CTA bilaterally - Routine Cardiovascular Exam Present: RRR - Routine Abdominal Exam Present: soft, normoactive bowel sounds, distended. Absent: tenderness - Routine Extremities Exam Present: edema Comments: Mild ankle +1 - Routine Skin Exam Present: dry, warm - Routine Neurological Exam Present: alert, oriented X3 - Routine Psychiatric Exam Present: normal affect, cooperative - Urinary Catheter Management Indwelling Urethral Catheter Cath placed during this visit: yes, but has since been removed by the nurse Reason for continuing: Decision to DC catheter Removal date: 12/07/17 Removal time: 14:08 <Genevieve Villafana - Last Filed: 12/09/17 16:38> Vital signs: Vital Signs 12/08/17 20:00 12/09/17 00:00 12/09/17 08:00 Temperature 98.9 F 98.9 F 98.3 F Pulse Rate 77 87 85 Respiratory Rate 17 18 18 Blood Pressure 118/77 110/66 105/70 Pulse Oximetry 94 L 95 97 12/09/17 12:56 12/09/17 17:16 Temperature 97.7 F 97.7 F Pulse Rate 90 77 Respiratory Rate 16 16 Blood Pressure 109/76 99/63 L Pulse Oximetry 96 98 Intake & Output 12/08/17 12/09/17 12/09/17 18:59 06:59 18:59 Intake Total 820 / 820 Balance 820 / 820 Intake: IV 100 / 100 Cubicin Inj 750 MG In NS Inj 100 / 100 100 ML @ 200 mls/hr IV.SIG Q24H [facility] Rx#:[id number] Oral 720 / 720 Other: # Voids 3 6 Date of Last Bowel Movement 12/07/17 12/07/17 # Bowel Movements 1 - Urinary Catheter Management Indwelling Urethral Catheter Cath placed during this visit: no <Alysa Dorsey - Last Filed: 12/09/17 17:32> Results - Labs CBC & Chem 7: 12/06/17 06:42 12/06/17 06:42 - Imaging Impressions Paracentesis Ultrasound 12/09/17 00:00 CONCLUSION: 1. Uncomplicated paracentesis. <Genevieve Villafana - Last Filed: 12/09/17 16:38> - Labs CBC & Chem 7: 12/06/17 06:42 12/06/17 06:42 Laboratory Results - last 24 hr 12/05/17 13:15 ALFREDO Titer 1:80 H ALFREDO Pattern Speckled H ALFRDEO Interpretation - Imaging Impressions Paracentesis Ultrasound 12/09/17 00:00 CONCLUSION: 1. Uncomplicated paracentesis. <Alysa Dorsey - Last Filed: 12/09/17 17:32> Assessment and Plan (1) Cirrhosis Status: Acute Code(s): K74.60 - Unspecified cirrhosis of liver (2) Ascites Status: Acute Code(s): R18.8 - Other ascites - Plan Ascites Post paracentesis with removal of 7200 mL's of peritoneal fluid. Patient reports feeling less distended and denies any abdominal pain. Currently on Lasix and spironolactone. Cirrhosis 12/06/2017- total bilirubin 0.7 AST 28 ALT 19 alk phos 120 12/04/2017 ammonia level 23. ALFREDO positive, titer, pattern and interpretation pending. Hepatitis panel nonreactive. Patient has history of alcohol abuse/portal hypertension. Plan -Diet as tolerated: Low-Sodium -Monitor labs -Continue Lasix and Spironolactone -Lactulose -Alcohol cessation -Supportive care -Further recommendations based on patient's status and findings This patient has been seen by myself and Dr. Dorsey and this note is written on her behalf - Attending Attestation Dr. Dorsey <Genevieve Villafana - Last Filed: 12/09/17 16:38> (1) Cirrhosis Status: Acute Code(s): K74.60 - Unspecified cirrhosis of liver (2) Ascites Status: Acute Code(s): R18.8 - Other ascites - Attending Attestation seen, examined agree with above <Alysa Dorsey - Last Filed: 12/09/17 17:32> <Genevieve Villafana - Last Filed: 12/09/17 16:38> (2) Ascites Qualifiers: Ascites type: due to alcoholic cirrhosis Qualified Code(s): K70.31 - Alcoholic cirrhosis of liver with ascites <Alysa Dorsey - Last Filed: 12/09/17 17:32> (2) Ascites Qualifiers: Ascites type: due to alcoholic cirrhosis Qualified Code(s): K70.31 - Alcoholic cirrhosis of liver with ascites
--- NOTE | 2017-12-09 22:34 | P.PN ---
Subjective Interval history: NOT seen Physical Exam Vital signs: Vital Signs 12/09/17 00:00 12/09/17 08:00 12/09/17 12:56 Temperature 98.9 F 98.3 F 97.7 F Pulse Rate 87 85 90 Respiratory Rate 18 18 16 Blood Pressure 110/66 105/70 109/76 Pulse Oximetry 95 97 96 12/09/17 17:16 12/09/17 20:00 Temperature 97.7 F 98.3 F Pulse Rate 77 87 Respiratory Rate 16 16 Blood Pressure 99/63 L 103/55 L Pulse Oximetry 98 97 Intake & Output 12/09/17 12/09/17 12/10/17 06:59 18:59 06:59 Intake Total 100 / 100 0 / 0 Balance 100 / 100 0 / 0 Intake: IV 100 / 100 0 / 0 Flexbumin 25% Inj 200 ML @ 60 0 / 0 mls/hr IV.SIG ONCE ONE Rx#: [id number] Cubicin Inj 750 MG In NS Inj 100 / 100 100 ML @ 200 mls/hr IV.SIG Q24H [facility] Rx#:[id number] Other: # Voids 6 Date of Last Bowel Movement 12/07/17 12/09/17 # Bowel Movements 1 Narrative: GENERAL: thin, male, in NAD, lying comfortably in bed SKIN: Warm and dry. HEENT: Atraumatic. Normocephalic. CHRIST, PONCHO. CARDIOVASCULAR: Regular rate and rhythm. S1 and S2 no murmurs rubs or gallops. RESPIRATORY: Clear to auscultation x2 GASTROINTESTINAL: Abdomen distended, nontender to palpation, +fluid wave, + bowel sounds, Neg rebound MUSCULOSKELETAL: Extremities without clubbing, cyanosis, trace edema NEUROLOGICAL: AAOx3, no focal deficits. EXT: trace LE edema - Urinary Catheter Management Indwelling Urethral Catheter Cath placed during this visit: yes, but has since been removed by the nurse Reason for continuing: Decision to DC catheter Removal date: 12/07/17 Removal time: 14:08 Results - Labs CBC & Chem 7: 12/06/17 06:42 12/06/17 06:42 Laboratory Results - last 24 hr 12/05/17 13:15 ALFREDO Titer 1:80 H ALFREDO Pattern Speckled H ALFREDO Interpretation - Imaging Impressions P ITS Impressions Chest X-Ray 12/04/17 19:16 CONCLUSION: No acute cardiopulmonary process. Venous Doppler Study 12/04/17 19:26 CONCLUSION: No DVT. Paracentesis Ultrasound 12/09/17 00:00 CONCLUSION: 1. Uncomplicated paracentesis. - Procedures Paracentesis 12/05 and 12/09 EGD and Cscope Assessment and Plan - Assessment (1) Hypertension Code(s): I10 - Essential (primary) hypertension Status: Acute (2) Fracture of humerus with nonunion Code(s): S42.309K - Unspecified fracture of shaft of humerus, unspecified arm, subsequent encounter for fracture with nonunion Status: Acute (3) Open fracture of humerus with nonunion Code(s): S42.309K - Unspecified fracture of shaft of humerus, unspecified arm, subsequent encounter for fracture with nonunion Status: Acute (4) Cirrhosis Code(s): K74.60 - Unspecified cirrhosis of liver Status: Acute (5) Osteomyelitis Code(s): M86.9 - Osteomyelitis, unspecified Status: Acute - Plan 52-year-old Male with a PMHx of COPD and EtOH abuse with Liver failure admitted for inpatient management of ascites status post paracentesis, 1. Alcoholic Cirrhosis/Ascites s/p Paracentesis on 12/05 with 12L removed Plan for paracentesis today per GI recommendations Managed by GI, appreciate assistance EGD and Colonoscopy on 12/06 with findings as below Continue Lasix and Aldactone Cont. MV and thiamine Discussed with patient option of hospice/palliative consult for possible better management of outpatient care vs trying to establish with primary (needing frequent paracentesis; pt understands this is not curable). S/P colonoscopy on 12/06/17 1. Mild diverticulosis was noted in the sigmoid colon 2. Rectal varices 3. Retroflexed views revealed internal hemorrhoids 4. Retroflexed views revealed medium internal hemorrhoids 5. Revealed external hemorrhoids S/P EGD on 12/06/17 1. There was LA Class A esophagitis noted 2. There was gastritis in the gastric antrum; biopsy was performed 3. Retroflexed views revealed no abnormalities 2. Osteomyelitis of the Humerus Continue Daptomycin per ID started 12/[address] Russell needs txt until December 30 Has PICC line ID consulted for continuation of care, he would like to be evaluated for home health care IV antibiotics versus ambulatory infusion center 3. COPD, chronic not in acute exacerbation Not on home medications or O2 4. Chelsi Groin Cont. Nystatin cream 5. DVT prophylaxis: ambulatory 6. GI PPX: PPI 7. Dispo: discharge planning for home health care versus ambulatory infusion for IV antibiotics through December 30.
[2017-12-10] MEDS: LORazepam 0.5 MG Tablet PO PRN ×2 (06:33→13:17)
[2017-12-10 07:22] LABS: Baso % (Auto) 0.4 % (0.0-2.0); Eos # (Auto) 0.2 th/mm3 (0.0-0.4); Eos % (Auto) 3.1 % (0.0-4.0); Hematocrit 36.7 % (39.0-51.0); Hemoglobin 12.6 gm/dL (13.0-17.0); Lymph # (Auto) 2.2 th/mm3 (1.0-4.8); Lymph % (Auto) 41.8 % (9.0-44.0); Mean Corpuscular HGB Conc 34.3 % (32.0-36.0); Mean Corpuscular Hemoglobin 29.5 pg (27.0-34.0); Mean Platelet Volume 8.5 fL (7.0-11.0); Mono # (Auto) 0.4 th/mm3 (0.0-0.9); Mono % (Auto) 7.7 % (0.0-8.0); Neut # (Auto) 2.5 th/mm3 (1.8-7.7); Platelet Count 125 th/mm3 (150-450); Red Blood Count 4.27 mil/mm3 (4.50-5.90); Red Cell Distribution Width 13.7 % (11.6-17.2); White Blood Count 5.3 th/mm3 (4.0-11.0)
[2017-12-10 07:44] LABS: Alanine Aminotransferase 20 U/L (12-78); Albumin 2.5 g/dL (3.4-5.0); Anion Gap 9 meq/L (5-15); Aspartate Aminotransferase 28 U/L (15-37); Blood Urea Nitrogen 12 mg/dL (7-18); Calcium 8.2 mg/dL (8.5-10.1); Carbon Dioxide 28.5 meq/L (21.0-32.0); Chloride 100 meq/L (98-107); Glomerular Filtration Rate Greater Than 89 mL/min (>89); Glucose,Random 89 mg/dL (74-106); Potassium 4.2 meq/L (3.5-5.1); Sodium 137 meq/L (136-145)
[2017-12-10 07:46] LABS: Alkaline Phosphatase 143 U/L (45-117); Total Protein 5.4 g/dL (6.4-8.2)
[2017-12-10 07:49] LABS: Creatine Kinase 51 U/L (39-308)
[2017-12-10] MEDS: Furosemide 40 MG Tablet PO SCH (09:23)
--- NOTE | 2017-12-10 11:17 | P.PNGI ---
Subjective Interval history: Patient resting comfortably in bed. Denies abdominal pain, nausea or vomiting. States tolerating meals well <Genevieve Villafana - Last Filed: 12/10/17 11:11> Physical Exam Vital signs: Vital Signs 12/09/17 12:56 12/09/17 17:16 12/09/17 20:00 Temperature 97.7 F 97.7 F 98.3 F Pulse Rate 90 77 87 Respiratory Rate 16 16 16 Blood Pressure 109/76 99/63 L 103/55 L Pulse Oximetry 96 98 97 12/09/17 20:07 12/10/17 00:00 12/10/17 03:35 Temperature 98.5 F 98.5 F Pulse Rate 86 109 H Respiratory Rate 16 16 18 Blood Pressure 91/52 L 108/59 L Pulse Oximetry 97 95 12/10/17 08:00 12/10/17 10:00 Temperature 98.3 F Pulse Rate 71 Respiratory Rate 18 18 Blood Pressure 111/60 Pulse Oximetry 97 Intake & Output 12/09/17 12/10/17 12/10/17 18:59 06:59 18:59 Intake Total 100 / 100 200 / 200 Balance 100 / 100 200 / 200 Intake: IV 100 / 100 200 / 200 Flexbumin 25% Inj 200 ML @ 60 200 / 200 mls/hr IV.SIG ONCE ONE Rx#: [id number] Cubicin Inj 750 MG In NS Inj 100 / 100 100 ML @ 200 mls/hr IV.SIG Q24H LE Rx#:[id number] Other: # Voids 5 Date of Last Bowel Movement 12/09/17 12/09/17 12/09/17 - Constitutional no acute distress - Routine HEENT Exam Head: Present: normocephalic - Routine Respiratory Exam Present: CTA bilaterally. Absent: accessory muscle use - Routine Cardiovascular Exam Present: RRR - Routine Abdominal Exam Present: soft, normoactive bowel sounds, distended. Absent: tenderness, guarding, firm Comments: Mildly distended but not firm or tender - Routine Extremities Exam Present: full ROM, pulses intact. Absent: edema - Routine Skin Exam Present: dry, warm - Routine Neurological Exam Present: alert, oriented X3 - Routine Psychiatric Exam Present: normal affect, cooperative - Urinary Catheter Management Indwelling Urethral Catheter Cath placed during this visit: yes, but has since been removed by the nurse Reason for continuing: Decision to DC catheter Removal date: 12/07/17 Removal time: 14:08 <Genevieve Villafana - Last Filed: 12/10/17 11:11> Vital signs: Vital Signs 12/09/17 17:16 12/09/17 20:00 12/09/17 20:07 Temperature 97.7 F 98.3 F Pulse Rate 77 87 Respiratory Rate 16 16 16 Blood Pressure 99/63 L 103/55 L Pulse Oximetry 98 97 12/10/17 00:00 12/10/17 03:35 12/10/17 08:00 Temperature 98.5 F 98.5 F 98.3 F Pulse Rate 86 109 H 71 Respiratory Rate 16 18 18 Blood Pressure 91/52 L 108/59 L 111/60 Pulse Oximetry 97 95 97 12/10/17 10:00 12/10/17 12:00 Temperature 98.1 F Pulse Rate 73 Respiratory Rate 18 18 Blood Pressure 99/64 L Pulse Oximetry 97 Intake & Output 12/09/17 12/10/17 12/10/17 18:59 06:59 18:59 Intake Total 100 / 100 200 / 200 Balance 100 / 100 200 / 200 Intake: IV 100 / 100 200 / 200 Flexbumin 25% Inj 200 ML @ 60 200 / 200 mls/hr IV.SIG ONCE ONE Rx#: [id number] Cubicin Inj 750 MG In NS Inj 100 / 100 100 ML @ 200 mls/hr IV.SIG Q24H LE Rx#:[id number] Other: # Voids 5 Date of Last Bowel Movement 12/09/17 12/09/17 12/09/17 - Urinary Catheter Management Indwelling Urethral Catheter Cath placed during this visit: no <Alysa Dorsey - Last Filed: 12/10/17 16:09> Results - Labs CBC & Chem 7: 12/10/17 06:16 12/10/17 06:16 Laboratory Results - last 24 hr 12/05/17 12/10/17 12/10/17 13:15 06:16 06:16 WBC 5.3 RBC 4.27 L Hgb 12.6 L Hct 36.7 L MCV 86.0 MCH 29.5 MCHC 34.3 RDW 13.7 Plt Count 125 L MPV 8.5 Neut % (Auto) 47.0 Lymph % (Auto) 41.8 [place] % (Auto) 7.7 Eos % (Auto) 3.1 Baso % (Auto) 0.4 Neut # (Auto) 2.5 Lymph # (Auto) 2.2 [place] # (Auto) 0.4 Eos # (Auto) 0.2 Baso # (Auto) 0.0 WBC Differential . Differential Comment Auto diff final Sodium 137 Potassium 4.2 Chloride 100 Carbon Dioxide 28.5 Anion Gap 9 BUN 12 Creatinine 0.60 Estimated GFR Greater than 89 Random Glucose 89 Calcium 8.2 L Total Bilirubin 0.3 AST 28 ALT 20 Alkaline Phosphatase 143 H Total Creatine Kinase 51 Total Protein 5.4 L Albumin 2.5 L ALFREDO Titer 1:80 H ALFREDO Pattern Speckled H ALFREDO Interpretation - Imaging Impressions Paracentesis Ultrasound 12/09/17 00:00 CONCLUSION: 1. Uncomplicated paracentesis. - Procedures Paracentesis 12/05 and 12/09 EGD and Cscope <Genevieve Villafana - Last Filed: 12/10/17 11:11> - Labs CBC & Chem 7: 12/10/17 06:16 12/10/17 06:16 Laboratory Results - last 24 hr 12/05/17 12/10/17 12/10/17 13:15 06:16 06:16 WBC 5.3 RBC 4.27 L Hgb 12.6 L Hct 36.7 L MCV 86.0 MCH 29.5 MCHC 34.3 RDW 13.7 Plt Count 125 L MPV 8.5 Neut % (Auto) 47.0 Lymph % (Auto) 41.8 [place] % (Auto) 7.7 Eos % (Auto) 3.1 Baso % (Auto) 0.4 Neut # (Auto) 2.5 Lymph # (Auto) 2.2 [place] # (Auto) 0.4 Eos # (Auto) 0.2 Baso # (Auto) 0.0 WBC Differential . Differential Comment Auto diff final Sodium 137 Potassium 4.2 Chloride 100 Carbon Dioxide 28.5 Anion Gap 9 BUN 12 Creatinine 0.60 Estimated GFR Greater than 89 Random Glucose 89 Calcium 8.2 L Total Bilirubin 0.3 AST 28 ALT 20 Alkaline Phosphatase 143 H Total Creatine Kinase 51 Total Protein 5.4 L Albumin 2.5 L ALFREDO Titer 1:80 H ALFREDO Pattern Speckled H ALFREDO Interpretation <Alysa Dorsey - Last Filed: 12/10/17 16:09> Assessment and Plan (1) Cirrhosis Status: Acute Code(s): K74.60 - Unspecified cirrhosis of liver (2) Ascites Status: Acute Code(s): R18.8 - Other ascites - Plan Ascites Post paracentesis with removal of 7200 mL's of peritoneal fluid. Patient reports feeling less distended and denies any abdominal pain. Currently on Lasix and spironolactone. Cirrhosis 12/06/2017- total bilirubin 0.7 AST 28 ALT 19 alk phos 120 12/04/2017 ammonia level 23. ALFREDO positive, titer, pattern and interpretation pending. Hepatitis panel nonreactive. Patient has history of alcohol abuse/portal hypertension. 12/10/2017-Patient post paracentesis on 12/09/2017 with removal of 7200 mL's of peritoneal fluid. Patient states he is adhering to fluid restriction and salt restriction. Denies abdominal pain no lower extremity edema noted. Currently on Lasix and spironolactone. Total bilirubin 0.3 AST 28 ALT 20 alk phos 143. Plan -Diet as tolerated: Low-Sodium -Continue to monitor lab -Monitor for edema /abdominal distention -Continue Lasix and Spironolactone -Lactulose -Alcohol cessation -Supportive care -Further recommendations based on patient's status and findings This patient has been seen by myself and Dr. Dorsey and this note is written on her behalf - Attending Attestation Dr. Dorsey <Genevieve Villafana - Last Filed: 12/10/17 11:11> (1) Cirrhosis Status: Acute Code(s): K74.60 - Unspecified cirrhosis of liver (2) Ascites Status: Acute Code(s): R18.8 - Other ascites - Attending Attestation agree with above <Alysa Dorsey - Last Filed: 12/10/17 16:09> <Genevieve Villafana - Last Filed: 12/10/17 11:11> (2) Ascites Qualifiers: Ascites type: due to alcoholic cirrhosis Qualified Code(s): K70.31 - Alcoholic cirrhosis of liver with ascites <Alysa Dorsey - Last Filed: 12/10/17 16:09> (2) Ascites Qualifiers: Ascites type: due to alcoholic cirrhosis Qualified Code(s): K70.31 - Alcoholic cirrhosis of liver with ascites
--- NOTE | 2017-12-10 12:36 | P.PN ---
Subjective Interval history: Follow-up ascites and left humerus osteomyelitis. Complaining of left arm pain. Discussed with ID to obtain MRI because of poor healing, patient with sinus tract formation. E christy queried. Pt on Suboxone. Denies abdominal pain , nausea and vomiting. Physical Exam Vital signs: Vital Signs 12/09/17 12:56 12/09/17 17:16 12/09/17 20:00 Temperature 97.7 F 97.7 F 98.3 F Pulse Rate 90 77 87 Respiratory Rate 16 16 16 Blood Pressure 109/76 99/63 L 103/55 L Pulse Oximetry 96 98 97 12/09/17 20:07 12/10/17 00:00 12/10/17 03:35 Temperature 98.5 F 98.5 F Pulse Rate 86 109 H Respiratory Rate 16 16 18 Blood Pressure 91/52 L 108/59 L Pulse Oximetry 97 95 12/10/17 08:00 12/10/17 10:00 Temperature 98.3 F Pulse Rate 71 Respiratory Rate 18 18 Blood Pressure 111/60 Pulse Oximetry 97 Intake & Output 12/09/17 12/10/17 12/10/17 18:59 06:59 18:59 Intake Total 100 / 100 200 / 200 Balance 100 / 100 200 / 200 Intake: IV 100 / 100 200 / 200 Flexbumin 25% Inj 200 ML @ 60 200 / 200 mls/hr IV.SIG ONCE ONE Rx#: [id number] Cubicin Inj 750 MG In NS Inj 100 / 100 100 ML @ 200 mls/hr IV.SIG Q24H LE Rx#:[id number] Other: # Voids 5 Date of Last Bowel Movement 12/09/17 12/09/17 12/09/17 Narrative: GENERAL: thin, male, in NAD, lying comfortably in bed SKIN: Warm and dry. HEENT: Atraumatic. Normocephalic. PERRLA, MOM. CARDIOVASCULAR: Regular rate and rhythm. S1 and S2 no murmurs rubs or gallops. RESPIRATORY: Clear to auscultation x2 GASTROINTESTINAL: Abdomen not distended, nontender to palpation, +bowel sounds , Neg rebound MUSCULOSKELETAL: Extremities without clubbing, cyanosis, trace edema NEUROLOGICAL: AAOx3, no focal deficits. EXT: trace LE edema - Urinary Catheter Management Indwelling Urethral Catheter Cath placed during this visit: yes, but has since been removed by the nurse Reason for continuing: Decision to DC catheter Removal date: 12/07/17 Removal time: 14:08 Results - Labs CBC & Chem 7: 12/10/17 06:16 12/10/17 06:16 Laboratory Results - last 24 hr 12/05/17 12/10/17 12/10/17 13:15 06:16 06:16 WBC 5.3 RBC 4.27 L Hgb 12.6 L Hct 36.7 L MCV 86.0 MCH 29.5 MCHC 34.3 RDW 13.7 Plt Count 125 L MPV 8.5 Neut % (Auto) 47.0 Lymph % (Auto) 41.8 [place] % (Auto) 7.7 Eos % (Auto) 3.1 Baso % (Auto) 0.4 Neut # (Auto) 2.5 Lymph # (Auto) 2.2 [place] # (Auto) 0.4 Eos # (Auto) 0.2 Baso # (Auto) 0.0 WBC Differential . Differential Comment Auto diff final Sodium 137 Potassium 4.2 Chloride 100 Carbon Dioxide 28.5 Anion Gap 9 BUN 12 Creatinine 0.60 Estimated GFR Greater than 89 Random Glucose 89 Calcium 8.2 L Total Bilirubin 0.3 AST 28 ALT 20 Alkaline Phosphatase 143 H Total Creatine Kinase 51 Total Protein 5.4 L Albumin 2.5 L ALFREDO Titer 1:80 H ALFREDO Pattern Speckled H ALFREDO Interpretation - Imaging Impressions Paracentesis Ultrasound 12/09/17 00:00 CONCLUSION: 1. Uncomplicated paracentesis. - Procedures Paracentesis 12/05 and 12/09 EGD and Cscope Assessment and Plan - Assessment (1) Hypertension Code(s): I10 - Essential (primary) hypertension Status: Acute (2) Fracture of humerus with nonunion Code(s): S42.309K - Unspecified fracture of shaft of humerus, unspecified arm, subsequent encounter for fracture with nonunion Status: Acute (3) Open fracture of humerus with nonunion Code(s): S42.309K - Unspecified fracture of shaft of humerus, unspecified arm, subsequent encounter for fracture with nonunion Status: Acute (4) Cirrhosis Code(s): K74.60 - Unspecified cirrhosis of liver Status: Acute (5) Osteomyelitis Code(s): M86.9 - Osteomyelitis, unspecified Status: Acute - Plan 52-year-old Male with a PMHx of COPD and EtOH abuse with Liver failure admitted for inpatient management of ascites status post paracentesis, 1. Alcoholic Cirrhosis/Ascites s/p Paracentesis on 12/05 with 12L removed Plan for paracentesis today per GI recommendations Managed by GI, appreciate assistance EGD and Colonoscopy on 12/06 with findings as below Continue Lasix and Aldactone Cont. MV and thiamine Discussed with patient option of hospice/palliative consult for possible better management of outpatient care vs trying to establish with primary (needing frequent paracentesis; pt understands this is not curable). We will follow-up S/P colonoscopy on 12/06/17 1. Mild diverticulosis was noted in the sigmoid colon 2. Rectal varices 3. Retroflexed views revealed internal hemorrhoids 4. Retroflexed views revealed medium internal hemorrhoids 5. Revealed external hemorrhoids S/P EGD on 12/06/17 1. There was LA Class A esophagitis noted 2. There was gastritis in the gastric antrum; biopsy was performed 3. Retroflexed views revealed no abnormalities 2. Osteomyelitis of the Humerus Continue Daptomycin per ID started 12/[address] Russell needs txt until December 30 Has PICC line ID consulted for continuation of care, he would like to be evaluated for home health care IV antibiotics versus ambulatory infusion center Discussed with infectious disease, obtain MRI, patient with poor healing with sinus tract formation 3. COPD, chronic not in acute exacerbation Not on home medications or O2 4. Chelsi Groin Cont. Nystatin cream 5. DVT prophylaxis: ambulatory 6. GI PPX: PPI 7. Dispo: discharge planning for home health care versus ambulatory infusion for IV antibiotics through December 30.
--- NOTE | 2017-12-10 14:41 | P.PNID ---
Subjective Remarks: pt co L arm pain no fever Antibiotics: daptomyicn Allergies/Adverse Reactions: Allergies No Known Allergies Allergy (Verified 12/04/17 18:52) Objective Vital Signs 12/09/17 17:16 12/09/17 20:00 12/09/17 20:07 Temperature 97.7 F 98.3 F Pulse Rate 77 87 Respiratory Rate 16 16 16 Blood Pressure 99/63 L 103/55 L Pulse Oximetry 98 97 12/10/17 00:00 12/10/17 03:35 12/10/17 08:00 Temperature 98.5 F 98.5 F 98.3 F Pulse Rate 86 109 H 71 Respiratory Rate 16 18 18 Blood Pressure 91/52 L 108/59 L 111/60 Pulse Oximetry 97 95 97 12/10/17 10:00 12/10/17 12:00 Temperature 98.1 F Pulse Rate 73 Respiratory Rate 18 18 Blood Pressure 99/64 L Pulse Oximetry 97 Intake & Output 12/09/17 12/10/17 12/10/17 18:59 06:59 18:59 Intake Total 100 / 100 200 / 200 Balance 100 / 100 200 / 200 Intake: IV 100 / 100 200 / 200 Flexbumin 25% Inj 200 ML @ 60 200 / 200 mls/hr IV.SIG ONCE ONE Rx#: [id number] Cubicin Inj 750 MG In NS Inj 100 / 100 100 ML @ 200 mls/hr IV.SIG Q24H LE Rx#:[id number] Other: # Voids 5 Date of Last Bowel Movement 12/09/17 12/09/17 12/09/17 Lab - Hematology Results 12/10/17 06:16 WBC 5.3 RBC 4.27 L Hgb 12.6 L Hct 36.7 L MCV 86.0 MCH 29.5 MCHC 34.3 RDW 13.7 Plt Count 125 L MPV 8.5 Neut % (Auto) 47.0 Lymph % (Auto) 41.8 [place] % (Auto) 7.7 Eos % (Auto) 3.1 Baso % (Auto) 0.4 Neut # (Auto) 2.5 Lymph # (Auto) 2.2 [place] # (Auto) 0.4 Eos # (Auto) 0.2 Baso # (Auto) 0.0 WBC Differential . Differential Comment Auto diff final Lab - Chemistry Results 12/10/17 06:16 Sodium 137 Potassium 4.2 Chloride 100 Carbon Dioxide 28.5 Anion Gap 9 BUN 12 Creatinine 0.60 Estimated GFR Greater than 89 Random Glucose 89 Calcium 8.2 L Total Bilirubin 0.3 AST 28 ALT 20 Alkaline Phosphatase 143 H Total Creatine Kinase 51 Total Protein 5.4 L Albumin 2.5 L Imaging: ITS Impressions Chest X-Ray 12/04/17 19:16 CONCLUSION: No acute cardiopulmonary process. Venous Doppler Study 12/04/17 19:26 CONCLUSION: No DVT. Paracentesis Ultrasound 12/09/17 00:00 CONCLUSION: 1. Uncomplicated paracentesis. Physical Exam: GENERAL: NAD chromnically ill appearing SKIN: Warm and dry. HEAD: Atraumatic. Normocephalic. EYES: Pupils equal and round. No scleral icterus. No injection or drainage. ENT: No nasal bleeding or discharge. Mucous membranes pink and moist. CARDIOVASCULAR: Regular rate and rhythm. RESPIRATORY: No accessory muscle use. Clear to auscultation. Breath sounds equal bilaterally. GASTROINTESTINAL: Abdomen soft, non-tender, distended. MUSCULOSKELETAL: Extremities without clubbing, cyanosis, or edema. L upper arm: incision is healed on perifery + central ulceration with minimal serous odor free drainage + palpable indurations NEUROLOGICAL: Awake and alert. No obvious cranial nerve deficits. Motor grossly within normal limits. Five out of 5 muscle strength in the arms and legs. Normal speech. PSYCHIATRIC: Appropriate mood and affect; insight and judgment normal. 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
[2017-12-10] MEDS ORDERED: Gadobutrol PF 7.5 MMOL/7.5 ML Vial (for RAD) IV.SIG ONE (16:02)
[2017-12-10] MEDS: DAPTOmycin Inj 750 MG in Sodium Chlor 0.9% Inj 100 ML IV.SIG SCH (16:09)
--- NOTE | 2017-12-10 16:21 | MR ---
EXAM DATE: 12/10/2017 2:12 PM EDT AGE/SEX: 52 years / Male INDICATIONS: Fractured humerus. CLINICAL DATA: This is the patient's initial encounter. Patient reports that signs and symptoms have been present for 3 days and indicates a pain score of 4/10. MEDICAL/SURGICAL HISTORY: Hypertension. Chronic obstructive pulmonary disease. Cirrhosis. . P aracentesis. EGD. [place] [facility] [place]. [facility] [place] W & W/O CONTRAST, . . TECHNIQUE: Multiplanar, multisequence MRI examination was performed without and with 7.5 ml Gadavist (gadobutrol) contrast as single exam dose. FINDINGS: An oblique proximal shaft fracture is again seen of the left humerus with attempted healing but still appears incomplete. Marrow edema is again seen on both sides of the fracture and with corresponding T1 signal abnormality involving the distal 6.5 cm of the proximal fracture fragment and proximal 8.5 cm of the distal fracture fragment. No well-defined or measurable lesion seen. There is one shaft wid th of medial displacement and a moderate degree of medial angulation deformity which is similar to th e prior study. There is edema and mildly organized fluid in the adjacent soft tissues. Rim-enhancing fluid collections are demonstrated, for example measuring approximately 11 mm posterior to the fractu re on series 12 image 13 and measuring approximately 16 mm anterior and lateral to the fracture on se ti 12 image 17 which also appears to be draining to the skin. There is also some rim-enhancing flui d within the fracture cleft measuring approximately 0.8 x 1.8 x 1.5 cm. No acute abnormalities are seen of the visualized shoulder or elbow. Ascites and splenomegaly seen of the visualized left side of the abdomen. CONCLUSION: 1. Nonacute fracture with incomplete healing again seen of the proximal shaft of the left humerus. T here is medial displacement and angulation deformity which is similar to before. 2. Edema and rim-enhancing fluid collections in the surrounding soft tissues and there appears to be a sinus tract draining to the skin anterolaterally. These features are of concern for infection with draining abscess. If there is clinical evidence of infection, then signal changes consistent with os teomyelitis are seen on both sides of the fracture extending 6.5 cm proximally and 8.5 cm distally. Electronically signed by: Jagdeep Daniel MD 12/10/2017 4:20 PM EDT
--- NOTE | 2017-12-11 08:39 | P.PN ---
Subjective Interval history: Follow-up humerus osteomyelitis. MRI results noted. Keep patient n.p.o. and alert infectious disease. Patient agrees with management including consultation with palliative care regarding liver disease Physical Exam Vital signs: Vital Signs 12/10/17 10:00 12/10/17 12:00 12/10/17 16:49 Temperature 98.1 F 97.7 F Pulse Rate 73 81 Respiratory Rate 18 18 18 Blood Pressure 99/64 L 103/58 L Pulse Oximetry 97 97 12/10/17 16:54 12/10/17 19:39 12/10/17 23:18 Temperature 98.5 F 98.2 F 98.2 F Pulse Rate 82 78 74 Respiratory Rate 18 Blood Pressure 98/69 L 103/70 103/70 Pulse Oximetry 97 95 93 L Intake & Output 12/10/17 12/11/17 12/11/17 18:59 06:59 18:59 Intake Total 480 / 480 480 / 480 Output Total 1000 / 1000 Balance -520 / -520 480 / 480 Intake: Oral 480 / 480 480 / 480 Output: Urine 1000 / 1000 Other: # Voids 1 Date of Last Bowel Movement 12/09/17 12/09/17 # Bowel Movements 1 0 Narrative: GENERAL: thin, male, in NAD, lying comfortably in bed SKIN: Warm and dry. HEENT: Atraumatic. Normocephalic. [place], MOM. CARDIOVASCULAR: Regular rate and rhythm. S1 and S2 no murmurs rubs or gallops. RESPIRATORY: Clear to auscultation x2 GASTROINTESTINAL: Abdomen not distended, nontender to palpation, +bowel sounds , Neg rebound MUSCULOSKELETAL: Extremities without clubbing, cyanosis, trace edema NEUROLOGICAL: AAOx3, no focal deficits. EXT: trace LE edema - Urinary Catheter Management Indwelling Urethral Catheter Cath placed during this visit: yes, but has since been removed by the nurse Reason for continuing: Decision to DC catheter Removal date: 12/07/17 Removal time: 14:08 Results - Labs CBC & Chem 7: 12/10/17 06:16 12/10/17 06:16 - Imaging Impressions Humerus MRI 12/10/17 00:00 CONCLUSION: 1. Nonacute fracture with incomplete healing again seen of the proximal shaft of the left humerus. There is medial displacement and angulation deformity which is similar to before. 2. Edema and rim-enhancing fluid collections in the surrounding soft tissues and there appears to be a sinus tract draining to the skin anterolaterally. These features are of concern for infection with draining abscess. If there is clinical evidence of infection, then signal changes consistent with osteomyelitis are seen on both sides of the fracture extending 6.5 cm proximally and 8.5 cm distally. - Procedures Paracentesis 12/05 and 12/09 EGD and Cscope Assessment and Plan - Assessment (1) Hypertension Code(s): I10 - Essential (primary) hypertension Status: Acute (2) Fracture of humerus with nonunion Code(s): S42.309K - Unspecified fracture of shaft of humerus, unspecified arm, subsequent encounter for fracture with nonunion Status: Acute (3) Open fracture of humerus with nonunion Code(s): S42.309K - Unspecified fracture of shaft of humerus, unspecified arm, subsequent encounter for fracture with nonunion Status: Acute (4) Cirrhosis Code(s): K74.60 - Unspecified cirrhosis of liver Status: Acute (5) Osteomyelitis Code(s): M86.9 - Osteomyelitis, unspecified Status: Acute - Plan 52-year-old Male with a PMHx of COPD and EtOH abuse with Liver failure admitted for inpatient management of ascites status post paracentesis, 1. Alcoholic Cirrhosis/Ascites s/p Paracentesis on 12/05 with 12L removed Plan for paracentesis today per GI recommendations Managed by GI, appreciate assistance EGD and Colonoscopy on 12/06 with findings as below Continue Lasix and Aldactone Cont. MV and thiamine Discussed with patient option of hospice/palliative consult for possible better management of outpatient care vs trying to establish with primary (needing frequent paracentesis; pt understands this is not curable). Agrees to palliative care consult S/P colonoscopy on 12/06/17 1. Mild diverticulosis was noted in the sigmoid colon 2. Rectal varices 3. Retroflexed views revealed internal hemorrhoids 4. Retroflexed views revealed medium internal hemorrhoids 5. Revealed external hemorrhoids S/P EGD on 12/06/17 1. There was [place] Class A esophagitis noted 2. There was gastritis in the gastric antrum; biopsy was performed 3. Retroflexed views revealed no abnormalities 2. Osteomyelitis of the Humerus Continue Daptomycin per ID started 12/[address] Russell needs txt until December 30 Has PICC line ID consulted for continuation of care, he would like to be evaluated for home health care IV antibiotics versus ambulatory infusion center MRI with ff results: Edema and rim-enhancing fluid collections in the surrounding soft tissues and there appears to be a sinus tract draining to the skin anterolaterally. These features are of concern for infection with draining abscess. NPO discussed with infectious disease will consult patient's orthopedic surgeon 3. COPD, chronic not in acute exacerbation Not on home medications or O2 4. Chelsi Groin Cont. Nystatin cream 5. DVT prophylaxis: ambulatory 6. GI PPX: PPI 7. Dispo: discharge planning for home health care versus ambulatory infusion for IV antibiotics through December 30.
[2017-12-11] MEDS: LORazepam 0.5 MG Tablet PO PRN ×3 (09:25→21:45)
[2017-12-11] MEDS: Furosemide 40 MG Tablet PO SCH (09:25)
--- NOTE | 2017-12-11 11:14 | P.PNADD ---
Addendum to Inpatient Note Additional information: MRI Humerus MRI 12/10/17 00:00 CONCLUSION: 1. Nonacute fracture with incomplete healing again seen of the proximal shaft of the left humerus. There is medial displacement and angulation deformity which is similar to before. 2. Edema and rim-enhancing fluid collections in the surrounding soft tissues and there appears to be a sinus tract draining to the skin anterolaterally. These features are of concern for infection with draining abscess. If there is clinical evidence of infection, then signal changes consistent with osteomyelitis are seen on both sides of the fracture extending 6.5 cm proximally and 8.[address] Sariah Drake to Dr Oliva
--- NOTE | 2017-12-11 14:10 | P.CONPAL ---
Consult Service: Palliative Care Requesting Physician: Talon Oliva Reason for Consult: a. To assist with evaluation and management of symptoms including: b. To assist medical decision maker(s) with: better understanding of current medical conditions; weighing benefits/burdens of medical treatment options; making medical treatment decisions. Primary Care Provider: Christy Kaur History of Present Illness History of Present Illness: This 52-year-old patient presented to the ED on 18 complaints of abdominal and chest pain. Reports abdomen feels very tight and painful. Reports he thinks chest pain is related to the abdominal pain this is been going on for over a week. He reports therapeutic paracentesis in the past. Had been seen the day prior, ordered for outpatient paracentesis. Pain worsened before he was able to obtain paracentesis which was scheduled for the following day. * CBC unremarkable, BMP unremarkable. Troponin less than 0.02. Lower extremity ultrasound negative for DVT. Patient noted to have been seen 3 times in the ED with the same complaint ; with multiple attempts to make outpatient therapeutic paracentesis performed however he has been able to do this due to other issues. 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 He was planned to be kept in observation status for therapeutic paracentesis the following morning. * Paracentesis done 1200 mL removed. This improved abdominal pain. Nausea improved after paracentesis. No bowel movement times 8 days. * GI consulted: Patient reported 100 pound weight loss over the past 6-8 months. No family history of liver disease. Has never followed outpatient with GI doctor. CT abdomen pelvis obtained in October notes:Cirrhotic liver with large volume ascites. Scattered diverticulosis. Renal low-densities likely cysts. Plan for EGD and colonoscopy the next day. Additional liver diagnostics ordered. Ordered for albumin. also reports increased confusion in the prior few days. Reported patient drinks 750 mL's of vodka daily 2011 until August of this year when he was diagnosed with cirrhosis. Cirrhosis likely secondary to EtOH abuse with portal hypertension. * ID consulted: Patient with known chronic osteomyelitis left humerus, following humerus fracture. He underwent I&D of the left arm including bone site at open fracture with insertion of antibiotic beads 11/01/[address] Salinas. Was discharged on IV antibiotics via PICC. Has culture negative chronic osteomyelitis. ID recommends continue daptomycin through 12/30/17. * 12/06 underwent EGD, colonoscopy EGD= esophagitis, gastritis in the gastric antrum, biopsy done Colonoscopy= mild diverticulosis in sigmoid, rectal varices, internal hemorrhoids, external hemorrhoids Hepatitis panel negative. ALFREDO positive. Additional titers pending. AMA, ASMA negative. ceruloplasmin normal. * repeat paracentesis 12/09/17 for 7500Ml fluid. * Eforcse review per attending pt noted on suboxone. Tolerating PO. C/o left arm pain. ordered for MRI left arm for further eval of wound, sinus tract. D/c planning for home w home health vs ambulatory infusion center * humerus MRI 12/10 =1. Nonacute fracture with incomplete healing again seen of the proximal shaft of the left humerus. There is medial displacement and angulation deformity which is similar to before., 2. Edema and rim-enhancing fluid collections in the surrounding soft tissues and there appears to be a sinus tract draining to the skin anterolaterally. These features are of concern for infection with draining abscess. If there is clinical evidence of infection , then signal changes consistent with osteomyelitis are seen on both sides of the fracture extending 6.5 cm proximally and 8.5 cm distally. Pt made NPO, ortho consulted for possible surgical intervention. * Palliative care consulted 12/11/17 to assist w clarification of goals of treatment. Pt seen in room with at bedside. Dual visit with Kellie Fenton DETAILER palliative social organization professor. He is alert oriented and appropriate. Very thin, cachectic. is lying in bed with him, she remains there during consultation / conversation. Review of medical history leading up to current admission. Some variance and timeline of fracture in treatment and infection appearance. Patient and to indicate fracture occurred in August, that he was hospitalized for 1 week at another hospital facility, and then 1-1/2 weeks after that they sought treatment here for what appeared to be a bad infection in which she could see the bone. Of note the only/earliest visit I could find for him here was October of this year. He indicates he has not been drinking for 2 months. Indicates still smoking one half PPD. Endorses nearly 100 pound weight loss in the past year. Feels much of this is related to oral dental surgery in order to obtain dentures. Endorses poor appetite more so when ascites is at its worst though currently appetite is fair to good. Denies dyspnea. Also endorses chronic edema to lower extremities. He endorses he has been on Suboxone for approximately 5 years, this was to help him with a prior opiate addiction. He indicated he suffered a back injury 6 years ago and then became addicted to pain medications so then he was started on Suboxone. He indicates that he has been weaning off of the Suboxone and does not even take it every day. He currently indicates left arm pain is minimal, ascites pain is more bothersome than arm pain. He indicates currently well controlled by hospital oral regimen. Upon review of conditions, treatment options, likely limitations of treatment options and difficulty to treat osteomyelitis especially in the presence of liver disease process patient and endorse he wishes to continue to pursue any available treatment options. Patient and request him to remain full code. We did review advanced directives, healthcare surrogate, living will. Paperwork left for them to review. He indicates he would want his as proxy decision maker. Per [place] statutes she would be appropriate legal proxy. * Osteomyelitis history: He apparently sustained a spiral fracture August 2017 of his humerus, due to fall at home, he reportedly was seen at [facility]. There he was told he could have surgery but could end up with an amputation. He chose to have splint application to follow-up outpatient. He did not maintain follow ups with ortho. He apparently suffered several more falls while drinking, since that original injury but did not seek further attention for the arm fracture. In October it was noticed by that he had a wound with drainage with apparent bone visible. She apparently called the orthopedic doctor who instructed them to go to the ED, they did not go to the ED and eventually did present to the ED a week and a half later. At time of that presentation he was unable to communicate history due to apparent intoxication. Blood alcohol level that admission was 160. Ortho at that time recommended surgical intervention I&D however did not recommend fixation/ hardware due to concern for noncompliance, liver cirrhosis, and acute infection. He was discharged home with outpatient antibiotics. Function/Cognitive Trajectory: active/independent w adls prior to admission. Reported no cognitive deficits, though pt and intermittently poor historian. [facility] - History History Provided By: Patient, Family Member - Medical History Medical History: Medical History (Last Reviewed 12/05/17 @ 18:00 by Bertha Russell MD) Hypertension Surgical history unknown COPD (chronic obstructive pulmonary disease) Humeral fracture Incontinence of bowel Liver failure - Surgical History Surgical History: Surgical History (Last Updated 12/11/17 @ 15:32 by SLOANE Cantu) Status post debridement - Family History Family History: Family History (Last Reviewed 12/11/17 @ 15:32 by SLOANE Cantu) Other Osteoarthritis - Social History I have reviewed the patient's Social History: Yes - Tobacco History Second Hand Smoke Exposure: Yes Tobacco Use In Past 30 Days: Yes Smoking Status: Heavy tobacco smoker Tobacco Type: Cigarettes Packs Per Day: 0.5 - Alcohol History How Often Do You Have a Drink Containing Alcohol: Never (none x 2 mos, prev 700ml day) - Substance Use History Substance History: Past History (hx opiate addiction ) - Travel History Recent Travel in the [place] Within the Last 8 Weeks: No Recent Travel Out of the Country Within the Last 8 Weeks: No - Immunization History Tetanus Immunization: <5 Years Hx Influenza Vaccine This Season: No Medications and Allergies Active Medications: Active Medications Clonidine HCl (Catapres) 0.1 mg PO Q6H PRN PRN Reason: For SBP >/= 180, DBP >/= 100 Flumazenil (Romazecon Inj) 0.2 mg IV.PUSH Q1M PRN PRN Reason: OVERSEDATION Furosemide (Lasix) 40 mg PO DAILY [facility] Last Admin: 12/11/17 09:25 Dose: 40 mg Haloperidol Lactate (Haldol Inj) 1 mg IV.PUSH Q15M PRN PRN Reason: for severe agitation Daptomycin 750 mg/ Sodium (Chloride) 100 mls @ 200 mls/hr IV.SIG Q24H [facility] Last Admin: 12/10/17 16:09 Dose: 200 mls/hr Lactulose (Lactulose Liq) 30 ml PO DAILY PRN PRN Reason: SEVERE CONSITIPATION Last Admin: 12/08/17 10:13 Dose: 30 ml Lorazepam (Ativan) 0.5 mg PO Q6H PRN PRN Reason: ANXIETY Last Admin: 12/11/17 09:25 Dose: 0.5 mg Multivitamins (Theragran) 1 tab PO DAILY [facility] Last Admin: 12/11/17 09:25 Dose: 1 tab Nystatin (Mycostatin Cream) 1 applicatio TOPICAL BID [facility] Last Admin: 12/11/17 09:26 Dose: 1 applicatio Ondansetron HCl (Zofran Inj) 4 mg IV.PUSH Q6H PRN PRN Reason: NAUSEA OR VOMITING Last Admin: 12/10/17 20:39 Dose: 4 mg Oxycodone HCl (Roxicodone) 5 mg PO Q6H PRN PRN Reason: pain 1 to 10 Last Admin: 12/11/17 09:35 Dose: 5 mg Pantoprazole Sodium (Protonix) 40 mg PO DAILY [facility] Last Admin: 12/11/17 09:25 Dose: 40 mg Sodium Chloride (Ns Flush) 2 ml IV.FLUSH UNSCH PRN PRN Reason: FLUSH AFTER USING IV ACCESS Last Admin: 12/10/17 20:40 Dose: 2 ml Spironolactone (Aldactone) 100 mg PO DAILY [facility] Last Admin: 12/11/17 09:25 Dose: 100 mg Thiamine HCl (Vitamin B1) 100 mg PO DAILY [facility] Last Admin: 12/11/17 09:25 Dose: 100 mg Allergies Allergy/AdvReac Type Severity Reaction Status Date / Time No Known Allergies Allergy Verified 12/04/17 18:52 Home Medications Medication Instructions Recorded Confirmed Type daptomycin 750 mg IV DAILY 11/10/17 12/04/17 History Advance Directives Living Will: No Healthcare Surrogate: No Power of Healthcare Sales Representative: No Ethical and Legal Issues: We did review advanced directives, healthcare surrogate, living will. Paperwork left for them to review. He indicates he would want his as proxy decision maker. Per [place] statutes she would be appropriate legal proxy. Physical Exam Vital Signs: Vital Signs - 24 hr 12/10/17 16:49 12/10/17 16:54 12/10/17 19:39 Temperature 97.7 F 98.5 F 98.2 F Pulse Rate 81 82 78 Respiratory Rate 18 18 18 Blood Pressure 103/58 L 98/69 L 103/70 Pulse Oximetry 97 97 95 12/10/17 23:18 12/11/17 08:00 12/11/17 12:00 Temperature 98.2 F 98.3 F 97.2 F L Pulse Rate 74 74 Respiratory Rate 18 18 18 Blood Pressure 103/70 92/60 L 92/61 L Pulse Oximetry 93 L 97 96 I&O: Intake & Output 12/09/17 12/10/17 12/11/17 12/12/17 06:59 06:59 06:59 06:59 Intake Total 820 / 820 300 / 300 960 / 960 Output Total 1000 / 1000 Balance 820 / 820 300 / 300 -40 / -40 Physical Exam: CONSTITUTIONAL/GENERAL: This is a frail, cachectic male, ill appearing TUBES/LINES/DRAINS: PICC IV right extremity SKIN: No jaundice, rashes, or lesions. Slight jaundice. Left upper arm with very small open area of scabbing a few millimeters long no drainage currently. This is over approximate 2 inch scar anterior left humerus. Some bone deformity visible. Skin warm/dry. Chronic vascular discoloration bilateral lower legs. HEAD: Atraumatic. Normocephalic. EYES: Pupils equal and round and reactive. Extraocular motions intact. No injection or drainage. Fundi not examined. ENT: Hearing grossly normal. Nose without bleeding or purulent drainage. Throat without visible erythema, exudates, masses, or lesions. Poor dentition. NECK: Trachea midline. Supple, nontender. No palpable thyroid enlargement or nodularity. CARDIOVASCULAR: Regular rate and rhythm without murmur . No JVD. Peripheral pulses symmetric. RESPIRATORY/CHEST: Symmetric, unlabored respirations. Clear to auscultation. Breath sounds equal bilaterally. GASTROINTESTINAL: Abdomen soft, mildly tender, slightly rounded and distended. No ascites. Bowel sounds hypoactive. MUSCULOSKELETAL: Extremities without clubbing, cyanosis, or edema. No joint tenderness or effusion noted. No calf tenderness. No mottling or clubbing. LYMPHATICS: No palpable cervical or supraclavicular adenopathy. NEUROLOGICAL: Awake and alert oriented x3. Insight appears reasonable. Moves all 4 extremities. Cooperative. PSYCHIATRIC: No obvious anxiety/depression. no apparent hallucinations or other psychotic thought process. Diagnostic Tests Laboratory: Laboratory Results - last 72 hr 12/05/17 12/10/17 12/10/17 13:15 06:16 06:16 WBC 5.3 RBC 4.27 L Hgb 12.6 L Hct 36.7 L MCV 86.0 MCH 29.5 MCHC 34.3 RDW 13.7 Plt Count 125 L MPV 8.5 Neut % (Auto) 47.0 Lymph % (Auto) 41.8 [place] % (Auto) 7.7 Eos % (Auto) 3.1 Baso % (Auto) 0.4 Neut # (Auto) 2.5 Lymph # (Auto) 2.2 [place] # (Auto) 0.4 Eos # (Auto) 0.2 Baso # (Auto) 0.0 WBC Differential . Differential Comment Auto diff final Sodium 137 Potassium 4.2 Chloride 100 Carbon Dioxide 28.5 Anion Gap 9 BUN 12 Creatinine 0.60 Estimated GFR Greater than 89 Random Glucose 89 Calcium 8.2 L Total Bilirubin 0.3 AST 28 ALT 20 Alkaline Phosphatase 143 H Total Creatine Kinase 51 Total Protein 5.4 L Albumin 2.5 L ALFREDO Titer 1:80 H ALFREDO Pattern Speckled H ALFREDO Interpretation Result Diagrams: 12/10/17 06:16 12/10/17 06:16 Imaging: Impressions Paracentesis Ultrasound 12/09/17 00:00 CONCLUSION: 1. Uncomplicated paracentesis. Humerus MRI 12/10/17 00:00 CONCLUSION: 1. Nonacute fracture with incomplete healing again seen of the proximal shaft of the left humerus. There is medial displacement and angulation deformity which is similar to before. 2. Edema and rim-enhancing fluid collections in the surrounding soft tissues and there appears to be a sinus tract draining to the skin anterolaterally. These features are of concern for infection with draining abscess. If there is clinical evidence of infection, then signal changes consistent with osteomyelitis are seen on both sides of the fracture extending 6.5 cm proximally and 8.5 cm distally. Patient/Family Conference Family Conference Time: 35 Family Conference Location: Bedside Issues Discussed: Palliative met with patient, at bedside. Discussion included the following : * Palliative care role, purpose, approach * Additional medical, psychosocial, history * Patients general health, functional status, and cognitive changes in the months leading up to the current hospitalization * Patient/family understanding of the current medical problems; extensive review of underlying conditions active trajectory. Reviewed that patient high risk for ongoing decline, complication and hospitalization secondary to underlying liver disease process as well as osteomyelitis. Review osteomyelitis process very difficult to treat in this would be exacerbated by other chronic medical conditions. Review that even with ongoing aggressive intervention he would remain at risk for complication and decline and . Explore option for comfort measures only. * Patient/family understanding of prognosis * Patients goals of care as best understood from advance directives and/or conversations and/or values * Current medical treatment options and benefits/burdens of those options * Likely scenarios comparing ongoing aggressive care with a transition to comfort measures only--review of overall prognosis and possible trajectory with ongoing aggressive interventions that he still would remain at rest for nonhealing, complication and setback and limited life expectancy. Also review hospice option with no further aggressive or invasive interventions and comfort focus only. * Review of CPR benefits/burdens of resuscitationpatient and elect full code * Review of advance directive/health care surrogate * Questions answered to the best of my ability * Palliative care contact information provided At this time patient expresses aggressive goals. He and his wish to pursue whatever treatment options are available to try to help his illnesses. He understands he may experience limited life expectancy even with ongoing aggressive interventions; but at this time he would continue to seek hospitalization and whatever treatment options might be available. Assessment and Plan - Disease Oriented Problem List (1) Hypertension (2) Fracture of humerus with nonunion (3) Cirrhosis (4) Osteomyelitis (5) Coagulopathy (6) Ascites - Symptom Scale (1) Pain 0-10 Scale: Unable to quantify (2) Ascites 0-10 Scale: Unable to quantify Pertinent Non-Medical Issues: Psychosocial:. 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 Has not worked for some time now due to health, living off his fci. Spiritual: Legal: Patient appears capacitated and able to make his own decisions. He does not have advanced directives. He does indicate he would want his to serve as decision-maker. His would be appropriate legal decision maker as per [place] statutes. Ethical issues impacting care: No ethical issues identified. Important Contacts: Norma Alves [phone] Prognosis: This patient was admitted for ascites, abdominal pain. He has underlying liver disease, as well as osteomyelitis wound to left arm, site of humeral fracture. He has not always followed up regularly outpatient for arm fracture or recommended ascites/liver follow-up treatments. His liver disease alone is not necessarily stage at this point though certainly could progress to such at any time, and would be expected to progress without ongoing aggressive interventions and abstinence from alcohol. He has had ongoing osteomyelitis infection process to left arm, even with ongoing aggressive intervention and treatment may not be curable. Given Combination of these factors and his overall poor health status he may have limited life expectancy , and under those circumstances would be appropriate for hospice if goals compatible. Code Status: Full Code Plan: * Legal decision maker: Patient appears capacitated and able to make his own decisions. He does not have advanced directives. He does indicate he would want his to serve as decision-maker. His would be appropriate legal decision maker as per [place] statutes. * Goals: At this time patient expresses aggressive goals. He and his wish to pursue whatever treatment options are available to try to help his illnesses. He understands he may experience limited life expectancy even with ongoing aggressive interventions; but at this time he would continue to seek hospitalization and whatever treatment options might be available. They are not interested in hospice. * CODE STATUS: Full code. * SYMPTOMS: --Abdominal pain-patient endorses ongoing chronic abdominal pain secondary to ascites. Pain is relieved significantly once paracentesis is done. Pain reoccurs as ascites re-accumulates. Currently endorses good relief with prn 5 mg oxycodone, as well as post paracentesis relief. History of chronic back pain , which he relates resulted in opiate addiction. He is currently on Suboxone though has been weaned significantly does not take every day. Left humeral fracture, patient endorses minimal pain to this arm. --Edema, ascites-ongoing edema to lower extremities. Improved with diuretics in the hospital. Ongoing recurrent ascites to abdomen. Secondary to liver disease recurrent. Will likely require ongoing therapeutic paracentesis. * Palliative care will continue to follow during hospital course as condition evolves, to assist patient/decision-maker with understanding of medical conditions, weighing benefits/burdens of treatment options, for clarification of goals of treatment. Additionally will assist with any symptoms of palliative concern Appreciation Thank you for the opportunity to participate in the care of Morris Ricardo. Attestation Attestation: To help prompt me to consider important information that might be impacting today's encounter and assessment, information from prior notes written by myself or my colleagues may have been "brought forward" into today's note. My signature on this note, however, is an attestation that I personally performed the exam, history, and/or decision-making noted today, and, unless otherwise indicated, the interactions with patient, family, and staff as well as the review of records all occurred today. I also attest that the listed assessment and stated plan reflect my best clinical judgment today based on the combination of historical information, prior notes, and today's exam/ interactions. When time spent is documented, it refers only to time spent today by the signer, or if indicated, combined time spent today by collaborating physician/nurse practitioner.
[2017-12-11] MEDS: DAPTOmycin Inj 750 MG in Sodium Chlor 0.9% Inj 100 ML IV.SIG SCH (15:35)
--- NOTE | 2017-12-11 18:35 | P.PNGI ---
Subjective Interval history: Patient laying comfortably in bed denies abdominal pain <Genevieve Villafana - Last Filed: 12/11/17 18:32> Physical Exam Vital signs: Vital Signs 12/10/17 19:39 12/10/17 23:18 12/11/17 08:00 Temperature 98.2 F 98.2 F 98.3 F Pulse Rate 78 74 74 Respiratory Rate 18 18 18 Blood Pressure 103/70 103/70 92/60 L Pulse Oximetry 95 93 L 97 12/11/17 12:00 12/11/17 15:47 Temperature 97.2 F L 98.4 F Pulse Rate 78 Respiratory Rate 18 18 Blood Pressure 92/61 L 109/68 Pulse Oximetry 96 97 Intake & Output 12/10/17 12/11/17 12/11/17 18:59 06:59 18:59 Intake Total 580 / 580 480 / 480 1440 / 1440 Output Total 1000 / 1000 Balance -420 / -420 480 / 480 1440 / 1440 Intake: IV 100 / 100 100 / 100 Cubicin Inj 750 MG In NS Inj 100 / 100 100 / 100 100 ML @ 200 mls/hr IV.SIG Q24H LE Rx#:[id number] Oral 480 / 480 480 / 480 1340 / 1340 Output: Urine 1000 / 1000 Other: # Voids 1 5 Date of Last Bowel Movement 12/09/17 12/09/17 12/10/17 # Bowel Movements 1 0 0 - Constitutional no acute distress - Routine HEENT Exam Head: Present: normocephalic - Routine Abdominal Exam Present: soft, normoactive bowel sounds. Absent: tenderness, guarding, firm - Routine Neurological Exam Present: alert, oriented X3 - Routine Psychiatric Exam Present: normal affect, cooperative - Urinary Catheter Management Indwelling Urethral Catheter Cath placed during this visit: yes, but has since been removed by the nurse Reason for continuing: Decision to DC catheter Removal date: 12/07/17 Removal time: 14:08 <Genevieve Villafana - Last Filed: 12/11/17 18:32> Vital signs: Vital Signs 12/10/17 23:18 12/11/17 08:00 12/11/17 12:00 Temperature 98.2 F 98.3 F 97.2 F L Pulse Rate 74 74 Respiratory Rate 18 18 18 Blood Pressure 103/70 92/60 L 92/61 L Pulse Oximetry 93 L 97 96 12/11/17 15:47 Temperature 98.4 F Pulse Rate 78 Respiratory Rate 18 Blood Pressure 109/68 Pulse Oximetry 97 Intake & Output 12/11/17 12/11/17 12/12/17 06:59 18:59 06:59 Intake Total 480 / 480 1440 / 1440 Balance 480 / 480 1440 / 1440 Intake: IV 100 / 100 Cubicin Inj 750 MG In NS Inj 100 / 100 100 ML @ 200 mls/hr IV.SIG Q24H LE Rx#:[id number] Oral 480 / 480 1340 / 1340 Other: # Voids 1 5 Date of Last Bowel Movement 12/09/17 12/10/17 # Bowel Movements 0 0 - Urinary Catheter Management Indwelling Urethral Catheter Cath placed during this visit: no <Alysa Dorsey - Last Filed: 12/11/17 21:06> Results - Labs CBC & Chem 7: 12/10/17 06:16 12/10/17 06:16 - Procedures Paracentesis 12/05 and 12/09 EGD and Cscope <Genevieve Villafana - Last Filed: 12/11/17 18:32> - Labs CBC & Chem 7: 12/10/17 06:16 12/10/17 06:16 <Alysa Dorsey - Last Filed: 12/11/17 21:06> Assessment and Plan (1) Cirrhosis Status: Acute Code(s): K74.60 - Unspecified cirrhosis of liver (2) Ascites Status: Acute Code(s): R18.8 - Other ascites - Plan Ascites Post paracentesis with removal of 7200 mL's of peritoneal fluid. Patient reports feeling less distended and denies any abdominal pain. Currently on Lasix and spironolactone. Cirrhosis 12/06/2017- total bilirubin 0.7 AST 28 ALT 19 alk phos 120 12/04/2017 ammonia level 23. ALFREDO positive, titer, pattern and interpretation pending. Hepatitis panel nonreactive. Patient has history of alcohol abuse/portal hypertension. 12/10/2017-Patient post paracentesis on 12/09/2017 with removal of 7200 mL's of peritoneal fluid. Patient states he is adhering to fluid restriction and salt restriction. Denies abdominal pain no lower extremity edema noted. Currently on Lasix and spironolactone. Total bilirubin 0.3 AST 28 ALT 20 alk phos 143. 12/11/2017-patient resting comfortably in bed. Abdomen without distention. Lasix and spironolactone, patient adhering to fluid restriction and salt restriction. Plan -Diet as tolerated: Low-Sodium -Continue to monitor lab -Monitor for edema /abdominal distention -Continue Lasix and Spironolactone -Lactulose -Alcohol cessation -Supportive care -Further recommendations based on patient's status and findings This patient has been seen by myself and Dr. Dorsey and this note is written on her behalf - Attending Attestation Dr. Dorsey <Genevieve Villafana - Last Filed: 12/11/17 18:32> (1) Cirrhosis Status: Acute Code(s): K74.60 - Unspecified cirrhosis of liver (2) Ascites Status: Acute Code(s): R18.8 - Other ascites - Attending Attestation agree with above <Alysa Dorsey - Last Filed: 12/11/17 21:06> <Genevieve Villafana - Last Filed: 12/11/17 18:32> (2) Ascites Qualifiers: Ascites type: due to alcoholic cirrhosis Qualified Code(s): K70.31 - Alcoholic cirrhosis of liver with ascites <Alysa Dorsey - Last Filed: 12/11/17 21:06> (2) Ascites Qualifiers: Ascites type: due to alcoholic cirrhosis Qualified Code(s): K70.31 - Alcoholic cirrhosis of liver with ascites
[2017-12-12] MEDS ORDERED: Chlorhexidine Gluconate 2% 1 Pack (2 Cloths) TOPICAL ONE (01:55)
[2017-12-12] MEDS ORDERED: Sodium Chlor 0.9% Inj 500 ML IV.SIG SCH (02:00)
[2017-12-12] MEDS: LORazepam 0.5 MG Tablet PO PRN ×4 (03:53→22:28)
--- NOTE | 2017-12-12 06:56 | P.PNOP ---
Subjective Interval history: States he continues to have some pain to his left humerus. Denies any new drainage Physical Exam Vital signs: Vital Signs 12/11/17 08:00 12/11/17 12:00 12/11/17 15:47 Temperature 98.3 F 97.2 F L 98.4 F Pulse Rate 74 78 Respiratory Rate 18 18 18 Blood Pressure 92/60 L 92/61 L 109/68 Pulse Oximetry 97 96 97 12/11/17 19:49 12/11/17 22:15 12/12/17 00:23 Temperature 98.2 F 98.1 F Pulse Rate 82 95 H Respiratory Rate 18 18 18 Blood Pressure 138/68 109/57 L Pulse Oximetry 97 96 12/12/17 02:00 12/12/17 03:47 Temperature 98.4 F Pulse Rate 95 H Respiratory Rate 18 18 Blood Pressure 103/55 L Pulse Oximetry 96 Intake & Output 12/11/17 12/11/17 12/12/17 06:59 18:59 06:59 Intake Total 480 / 480 1440 / 1440 0 / 0 Balance 480 / 480 1440 / 1440 0 / 0 Intake: IV 100 / 100 Cubicin Inj 750 MG In NS Inj 100 / 100 100 ML @ 200 mls/hr IV.SIG Q24H LE Rx#:[id number] Oral 480 / 480 1340 / 1340 0 / 0 Other: # Voids 1 5 5 Date of Last Bowel Movement 12/09/17 12/10/17 12/10/17 # Bowel Movements 0 0 0 Narrative: Left upper extremity: Thin left upper extremity. Visually, angulation of humerus is seen. Healed surgical incision. Moderate tenderness with range of motion of the shoulder. No pain with elbow range of motion. Distally intact sensation with good capillary refills. Full extension flexion of all fingers - Urinary Catheter Management Indwelling Urethral Catheter Cath placed during this visit: yes, but has since been removed by the nurse Reason for continuing: Decision to DC catheter Removal date: 12/07/17 Removal time: 14:08 Results - Labs CBC & Chem 7: 12/10/17 06:16 12/10/17 06:16 - Procedures Paracentesis 12/05 and 12/09 EGD and Cscope Assessment and Plan - Assessment and Plan Osteomyelitis left humerus N.p.o. Surgery this morning for irrigation debridement and antibiotic bead placement Signed consents
[2017-12-12] MEDS ORDERED: Tobramycin Sulfate 1,200 MG Vial (for ortho/sterile core) OTHER ONE (07:04)
[2017-12-12] MEDS ORDERED: Lidocaine PF 1% Inj 5 ML Syringe OTHER ONE (07:41)
[2017-12-12] MEDS ORDERED: Sodium Chlor 0.9% Inj 250 ML IV.CONT ONE (07:41)
[2017-12-12] MEDS ORDERED: Post-op Orders (for Pharmacy) OTHER STA (08:39)
--- NOTE | 2017-12-12 08:45 | P.OP ---
- Preoperative Diagnosis (1) Open fracture of humerus with nonunion (2) Osteomyelitis Date of procedure: 12/12/17 Procedure: Irrigation and debridement of left humerus osteomyelitis, placement of antibiotic beads Anesthesia: SULEMAN Surgeon: Adi Patel MD Operation and Findings: Morris is a 52-year-old male with multiple medical problems including history of tobacco and alcohol abuse. He has had a left humerus fracture that was initially treated nonsurgically. Patient was noncompliant and over time the fracture became an open fracture. Patient had delayed presentation to the emergency room after the fracture became open. Patient is currently being treated with antibiotics. MRI was suspicious for significant osteomyelitis of the humerus with sinus tract. Informed consent was obtained preoperatively and operative site was marked. He has brought the operating room. He is given IV sedation and general anesthesia. Timeout procedure was performed. Procedure began with a 5 inch incision of the anterior arm. Subcu tissue was dissected with Bovie. A portion of the deltoid muscle was elevated. The biceps muscle was retracted. The sinus tract was excised. At this point attention was turned towards debridement of the humerus. An excisional debridement was performed. Using curettes and rongeurs the fracture site was debrided. 4 separate culture specimens were obtained from the fracture site. A TPS bur was also used to debride bone around the fracture site. Patient had a large amount of fracture callus present. I could not see any visible motion and through the fracture site. The wound was now thoroughly irrigated with sterile saline via pulse lavage. Next attention was turned to antibiotic beads. 10 cc of stimulant cement were mixed with 1 g of vancomycin and 1 g of tobramycin. The cement beads were packed around the fracture nonunion. The wound was now closed with 3-0 PDS and 3-0 nylon. Sterile dressings were applied. Patient was awakened and transferred to recovery in stable condition. Needle and sponge counts were correct.
--- NOTE | 2017-12-12 08:45 | XR ---
EXAM DATE: 12/12/2017 12:00 AM EDT AGE/SEX: 52 years / Male INDICATIONS: I&D left proximal humerus. CLINICAL DATA: This is the patient's initial encounter. Patient reports that signs and symptoms have been present for 1 day and indicates a pain score of Nonresponsive. MEDICAL/SURGICAL HISTORY: . Hypertension. Chronic obstructive pulmonary disease. Cirrhosis. No ne. COMPARISON: [facility] – [place], MR HUMERUS LEFT W & W/O CONTRAST, 12/10/2017. . FINDINGS: 2 fluoroscopic views of the proximal humerus demonstrate a humeral fracture with exuberant periosteal reaction/cement. First image demonstrates nearly full shaft length medial dislocation of the distal fragment. There is near-anatomic alignment on the second image. CONCLUSION: 1. Intraprocedural images of the left humerus, as above. Electronically signed by: Misael Han MD 12/12/2017 8:44 AM EDT
[2017-12-12] MEDS ORDERED: Calcium/Vitamin D 250/125 MG Tablet PO SCH (09:00)
--- NOTE | 2017-12-12 09:00 | P.PN ---
Subjective Interval history: Follow-up left humerus osteomyelitis status post irrigation and debridement and placement of antibiotic beads. Complaining of left arm pain. States he is not going to take Suboxone anymore and wants to be prescribed narcotics. Counseled. Left message with Yina [phone] Physical Exam Vital signs: Vital Signs 12/11/17 12:00 12/11/17 15:47 12/11/17 19:49 Temperature 97.2 F L 98.4 F 98.2 F Pulse Rate 78 82 Respiratory Rate 18 Blood Pressure 92/61 L 109/68 138/68 Pulse Oximetry 96 97 97 12/11/17 22:15 12/12/17 00:23 12/12/17 02:00 Temperature 98.1 F Pulse Rate 95 H Respiratory Rate 18 Blood Pressure 109/57 L Pulse Oximetry 96 12/12/17 03:47 Temperature 98.4 F Pulse Rate 95 H Respiratory Rate 18 Blood Pressure 103/55 L Pulse Oximetry 96 Intake & Output 12/11/17 12/12/17 12/12/17 18:59 06:59 18:59 Intake Total 1440 / 1440 0 / 0 700 / 700 Output Total 50 / 50 Balance 1440 / 1440 0 / 0 650 / 650 Intake: IV 100 / 100 Cubicin Inj 750 MG In NS Inj 100 / 100 100 ML @ 200 mls/hr IV.SIG Q24H LE Rx#:[id number] Oral 1340 / 1340 0 / 0 Anesthesia Amount 700 / 700 Output: Estimated Blood Loss 50 / 50 Other: # Voids 5 5 Date of Last Bowel Movement 12/10/17 12/10/17 # Bowel Movements 0 0 Narrative: GENERAL: thin, male, in NAD, lying comfortably in bed SKIN: Warm and dry. HEENT: Atraumatic. Normocephalic. PERRLA, MOM. CARDIOVASCULAR: Regular rate and rhythm. S1 and S2 no murmurs rubs or gallops. RESPIRATORY: Clear to auscultation x2 GASTROINTESTINAL: Abdomen not distended, nontender to palpation, +bowel sounds , Neg rebound MUSCULOSKELETAL: Extremities without clubbing, cyanosis. Dry dressing left upper extremity NEUROLOGICAL: AAOx3, no focal deficits. - Constitutional average body habitus - Urinary Catheter Management Indwelling Urethral Catheter Cath placed during this visit: yes, but has since been removed by the nurse Reason for continuing: Decision to DC catheter Removal date: 12/07/17 Removal time: 14:08 Results - Labs CBC & Chem 7: 12/10/17 06:16 12/10/17 06:16 - Imaging Impressions Shoulder X-Ray 12/12/17 00:00 CONCLUSION: 1. Intraprocedural images of the left humerus, as above. - Procedures Paracentesis 12/05 and 12/09 EGD and Cscope Irrigation and debridement of left humerus osteomyelitis, placement of antibiotic beads Assessment and Plan - Assessment (1) Hypertension Code(s): I10 - Essential (primary) hypertension Status: Acute (2) Fracture of humerus with nonunion Code(s): S42.309K - Unspecified fracture of shaft of humerus, unspecified arm, subsequent encounter for fracture with nonunion Status: Acute (3) Open fracture of humerus with nonunion Code(s): S42.309K - Unspecified fracture of shaft of humerus, unspecified arm, subsequent encounter for fracture with nonunion Status: Acute (4) Cirrhosis Code(s): K74.60 - Unspecified cirrhosis of liver Status: Acute (5) Osteomyelitis Code(s): M86.9 - Osteomyelitis, unspecified Status: Acute - Plan 52-year-old Male with a PMHx of COPD and EtOH abuse with Liver failure admitted for inpatient management of ascites status post paracentesis, 1. Alcoholic Cirrhosis/Ascites s/p Paracentesis on 12/05 with 12L removed Managed by GI, appreciate assistance EGD and Colonoscopy on 12/06 with findings as below Continue Lasix and Aldactone Cont. MVI and thiamine Discussed with patient option of hospice/palliative consult for possible better management of outpatient care vs trying to establish with primary (needing frequent paracentesis; pt understands this is not curable). Agrees to palliative care consult. Patient wants to continue aggressive treatment S/P colonoscopy on 12/06/17 1. Mild diverticulosis was noted in the sigmoid colon 2. Rectal varices 3. Retroflexed views revealed internal hemorrhoids 4. Retroflexed views revealed medium internal hemorrhoids 5. Revealed external hemorrhoids S/P EGD on 12/06/17 1. There was LA Class A esophagitis noted 2. There was gastritis in the gastric antrum; biopsy was performed 3. Retroflexed views revealed no abnormalities 2. Osteomyelitis of the Humerus Continue Daptomycin per ID started 12/[address] Russell needs txt until December 30 Has PICC line ID consulted for continuation of care, he would like to be evaluated for home health care IV antibiotics versus ambulatory infusion center MRI with ff results: Edema and rim-enhancing fluid collections in the surrounding soft tissues and there appears to be a sinus tract draining to the skin anterolaterally. These features are of concern for infection with draining abscess. Status post irrigation and debridement of left humerus osteomyelitis, placement of antibiotic beads December 12, 2017. Follow-up cultures Continue pain management consult regarding narcotics 3. COPD, chronic not in acute exacerbation Not on home medications or O2 4. Chelsi Groin Cont. Nystatin cream 5. DVT prophylaxis: ambulatory 6. GI PPX: PPI 7. Dispo: discharge planning for home health care versus ambulatory infusion for IV antibiotics through December 30. Discharge Planning: Discharge when cleared by infectious disease
[2017-12-12] MEDS ORDERED: fentaNYL Citrate Inj 100 MCG/2 ML Ampul ONE (09:08)
[2017-12-12] MEDS ORDERED: *Meperidine Inj 25 MG/ML Vial PERIprocedural Use ONLY ONE (09:08)
[2017-12-12] MEDS ORDERED: *morphine SULFATE 4 MG/ML PERIprocedure ONLY ONE ×3 (09:16→09:29)
[2017-12-12] MEDS: Furosemide 40 MG Tablet PO SCH (10:12)
[2017-12-12] MEDS: Multivitamin/Minerals Therapeutic Tablet PO SCH (10:12)
[2017-12-12] MEDS: Folic Acid 1 MG Tablet PO SCH (10:12)
--- NOTE | 2017-12-12 11:30 | P.PNPAL ---
Palliative care continues to follow along with Mr. Ricardo for ongoing communication, symptom management, assistance with goals of medical treatment conversations, and support. Patient seen in room. and respiratory at bedside. Patient currently doing breathing exercises; being taken off oxygen as he is sating 92 on room air. Patient is slightly lethargic status post wound debridement and antibiotic therapy this morning. Patient and deny any questions at this time. Decline completing living will or health care surrogate stating they have had conversations and patient would want his to be his health care decision maker. Explained per [place] Statutes this would be honored even without written advance directive regarding health care surrogate. Patient's only concern is making sure hospital has his new insurance on file. Spoke with CM. Also reviewed chart and informed patient insurance is showing as [employer] & [employer]. Provided palliative care SW contact information. Palliative care will continue to follow throughout hospitalization.
[2017-12-12] MEDS: Calcium/Vitamin D 250/125 MG Tablet PO SCH ×2 (13:00→17:14)
--- NOTE | 2017-12-12 13:36 | P.PNGI ---
Subjective Interval history: Patient sitting up in bed. Postop debridement of left humerus. Reporting moderate pain to left upper extremity. Denies abdominal pain nausea or vomiting <Genevieve Villafana - Last Filed: 12/12/17 13:29> Physical Exam Vital signs: Vital Signs 12/11/17 15:47 12/11/17 19:49 12/11/17 22:15 Temperature 98.4 F 98.2 F Pulse Rate 78 82 Respiratory Rate 18 18 Blood Pressure 109/68 138/68 Pulse Oximetry 97 97 12/12/17 00:23 12/12/17 02:00 12/12/17 03:47 Temperature 98.1 F 98.4 F Pulse Rate 95 H 95 H Respiratory Rate 18 Blood Pressure 109/57 L 103/55 L Pulse Oximetry 96 96 12/12/17 08:59 12/12/17 09:15 12/12/17 09:35 Temperature 97.6 F 97.6 F Pulse Rate 75 76 78 Respiratory Rate 16 16 16 Blood Pressure 118/59 L 129/70 113/62 Pulse Oximetry 96 96 96 12/12/17 12:00 Temperature 98.0 F Pulse Rate 99 H Respiratory Rate 16 Blood Pressure 108/68 Pulse Oximetry 97 Intake & Output 12/11/17 12/12/17 12/12/17 18:59 06:59 18:59 Intake Total 1440 / 1440 0 / 0 700 / 700 Output Total 50 / 50 Balance 1440 / 1440 0 / 0 650 / 650 Intake: IV 100 / 100 Cubicin Inj 750 MG In NS Inj 100 / 100 100 ML @ 200 mls/hr IV.SIG Q24H LE Rx#:[id number] Oral 1340 / 1340 0 / 0 Anesthesia Amount 700 / 700 Output: Estimated Blood Loss 50 / 50 Other: # Voids 5 5 Date of Last Bowel Movement 12/10/17 12/10/17 12/10/17 # Bowel Movements 0 0 - Constitutional no acute distress - Routine HEENT Exam Head: Present: normocephalic - Routine Respiratory Exam Present: CTA bilaterally. Absent: accessory muscle use - Routine Cardiovascular Exam Present: RRR - Routine Abdominal Exam Present: soft, normoactive bowel sounds. Absent: tenderness, guarding, firm - Routine Extremities Exam Comments: Dressing in place to left upper extremity - Routine Skin Exam Present: dry, warm - Routine Psychiatric Exam Present: normal affect, cooperative - Urinary Catheter Management Indwelling Urethral Catheter Cath placed during this visit: yes, but has since been removed by the nurse Reason for continuing: Decision to DC catheter Removal date: 12/07/17 Removal time: 14:08 <Genevieve Villafana - Last Filed: 12/12/17 13:29> Vital signs: Vital Signs 12/11/17 19:49 12/11/17 22:15 12/12/17 00:23 Temperature 98.2 F 98.1 F Pulse Rate 82 95 H Respiratory Rate 18 Blood Pressure 138/68 109/57 L Pulse Oximetry 97 96 12/12/17 02:00 12/12/17 03:47 12/12/17 08:59 Temperature 98.4 F 97.6 F Pulse Rate 95 H 75 Respiratory Rate 18 18 16 Blood Pressure 103/55 L 118/59 L Pulse Oximetry 96 96 12/12/17 09:15 12/12/17 09:35 12/12/17 12:00 Temperature 97.6 F 98.0 F Pulse Rate 76 78 99 H Respiratory Rate 16 16 16 Blood Pressure 129/70 113/62 108/68 Pulse Oximetry 96 96 97 Intake & Output 12/11/17 12/12/17 12/12/17 18:59 06:59 18:59 Intake Total 1440 / 1440 0 / 0 700 / 700 Output Total 50 / 50 Balance 1440 / 1440 0 / 0 650 / 650 Intake: IV 100 / 100 Cubicin Inj 750 MG In NS Inj 100 / 100 100 ML @ 200 mls/hr IV.SIG Q24H [facility] Rx#:[id number] Oral 1340 / 1340 0 / 0 Anesthesia Amount 700 / 700 Output: Estimated Blood Loss 50 / 50 Other: # Voids 5 5 Date of Last Bowel Movement 12/10/17 12/10/17 12/10/17 # Bowel Movements 0 0 - Urinary Catheter Management Indwelling Urethral Catheter Cath placed during this visit: no <Alysa Dorsey - Last Filed: 12/12/17 16:38> Results - Labs CBC & Chem 7: 12/10/17 06:16 12/10/17 06:16 - Imaging Impressions Shoulder X-Ray 12/12/17 00:00 CONCLUSION: 1. Intraprocedural images of the left humerus, as above. - Procedures Paracentesis 12/05 and 12/09 EGD and Cscope Irrigation and debridement of left humerus osteomyelitis, placement of antibiotic beads <Genevieve Villafana - Last Filed: 12/12/17 13:29> - Labs CBC & Chem 7: 12/10/17 06:16 12/10/17 06:16 Microbiology 12/12/17 08:12 Tissue - Arm Fungal Smear - Final No fungal elements seen 12/12/17 08:12 Tissue - Arm Fungal Smear - Final No fungal elements seen 12/12/17 08:12 Tissue - Arm Gram Stain - Final 12/12/17 08:12 Tissue - Arm Gram Stain - Final - Imaging Impressions Shoulder X-Ray 12/12/17 00:00 CONCLUSION: 1. Intraprocedural images of the left humerus, as above. <Alysa Dorsey - Last Filed: 12/12/17 16:38> Assessment and Plan (1) Cirrhosis Status: Acute Code(s): K74.60 - Unspecified cirrhosis of liver (2) Ascites Status: Acute Code(s): R18.8 - Other ascites - Plan Ascites Post paracentesis with removal of 7200 mL's of peritoneal fluid. Patient reports feeling less distended and denies any abdominal pain. Currently on Lasix and spironolactone. Cirrhosis 12/06/2017- total bilirubin 0.7 AST 28 ALT 19 alk phos 120 12/04/2017 ammonia level 23. ALFREDO positive, titer, pattern and interpretation pending. Hepatitis panel nonreactive. Patient has history of alcohol abuse/portal hypertension. 12/10/2017-Patient post paracentesis on 12/09/2017 with removal of 7200 mL's of peritoneal fluid. Patient states he is adhering to fluid restriction and salt restriction. Denies abdominal pain no lower extremity edema noted. Currently on Lasix and spironolactone. Total bilirubin 0.3 AST 28 ALT 20 alk phos 143. 12/11/2017-patient resting comfortably in bed. Abdomen without distention. Lasix and spironolactone, patient adhering to fluid restriction and salt restriction. 12/12/2017-patient sitting up at bedside. Post debridement of left humerus. Hemoglobin 12.6 hematocrit 36.7. Fluid restriction/sodium restriction. No overt abdominal distention. Plan -Low-sodium diet -Monitor for edema/increasing abdominal distention -Continue diuretics -Lactulose -Alcohol cessation -Supportive care This patient has been seen by myself and Dr. Dorsey and this note is written on her behalf - Attending Attestation Dr. Dorsey <Genevieve Villafana - Last Filed: 12/12/17 13:29> (1) Cirrhosis Status: Acute Code(s): K74.60 - Unspecified cirrhosis of liver (2) Ascites Status: Acute Code(s): R18.8 - Other ascites - Attending Attestation seen, examined agree with above ok to dc home from gi point low sald diet avoid etoh paracentesis prn lasix/aldactone will need vaccination hep b and a op gi will sign off call us as needed <Alysa Dorsey - Last Filed: 12/12/17 16:38> <Genevieve Villafana - Last Filed: 12/12/17 13:29> (2) Ascites Qualifiers: Ascites type: due to alcoholic cirrhosis Qualified Code(s): K70.31 - Alcoholic cirrhosis of liver with ascites <Alysa Dorsey - Last Filed: 12/12/17 16:38> (2) Ascites Qualifiers: Ascites type: due to alcoholic cirrhosis Qualified Code(s): K70.31 - Alcoholic cirrhosis of liver with ascites
[2017-12-12] MEDS: DAPTOmycin Inj 750 MG in Sodium Chlor 0.9% Inj 100 ML IV.SIG SCH (15:58)
[2017-12-13] MEDS: LORazepam 0.5 MG Tablet PO PRN ×4 (04:38→23:08)
--- NOTE | 2017-12-13 06:42 | P.PNOP ---
Subjective Interval history: POD 1 s/p I&D with Abx bead placement left humerus doing well. pain controlled. Physical Exam Vital signs: Vital Signs 12/12/17 08:59 12/12/17 09:15 12/12/17 09:35 Temperature 97.6 F 97.6 F Pulse Rate 75 76 78 Respiratory Rate 16 16 16 Blood Pressure 118/59 L 129/70 113/62 Pulse Oximetry 96 96 96 12/12/17 12:00 12/12/17 15:05 12/12/17 16:30 Temperature 98.0 F 98.4 F Pulse Rate 99 H 92 H Respiratory Rate 16 16 18 Blood Pressure 108/68 97/62 L Pulse Oximetry 97 95 12/12/17 20:00 12/12/17 21:51 12/13/17 00:00 Temperature 97.8 F 98.5 F 97.9 F Pulse Rate 107 H 95 H 110 H Respiratory Rate 16 16 15 Blood Pressure 141/90 H 109/69 120/86 Pulse Oximetry 97 97 12/13/17 02:26 12/13/17 04:00 Temperature 98.0 F Pulse Rate 89 Respiratory Rate 18 15 Blood Pressure 106/76 Pulse Oximetry 97 Intake & Output 12/12/17 12/12/17 12/13/17 06:59 18:59 06:59 Intake Total 0 / 0 1540 / 1540 600 / 600 Output Total 50 / 50 Balance 0 / 0 1490 / 1490 600 / 600 Weight 70.8 kg Intake: IV 100 / 100 Cubicin Inj 750 MG In NS Inj 100 / 100 100 ML @ 200 mls/hr IV.SIG Q24H [facility] Rx#:[id number] Oral 0 / 0 740 / 740 600 / 600 Anesthesia Amount 700 / 700 Output: Estimated Blood Loss 50 / 50 Other: # Voids 5 3 5 Date of Last Bowel Movement 12/10/17 12/10/17 12/10/17 # Bowel Movements 0 0 Narrative: LUE: dressings clean and dry. intct. full sensaton to median/ulnar nerve - Urinary Catheter Management Indwelling Urethral Catheter Cath placed during this visit: yes, but has since been removed by the nurse Reason for continuing: Decision to DC catheter Removal date: 12/07/17 Removal time: 14:08 Results - Labs CBC & Chem 7: 12/10/17 06:16 12/10/17 06:16 Microbiology 12/12/17 08:12 Tissue - Arm Fungal Smear - Final No fungal elements seen 12/12/17 08:12 Tissue - Arm Fungal Smear - Final No fungal elements seen 12/12/17 08:12 Tissue - Arm Gram Stain - Final 12/12/17 08:12 Tissue - Arm Gram Stain - Final 12/12/17 08:12 Tissue - Arm Fungal Smear - Final No fungal elements seen 12/12/17 08:12 Tissue - Arm Fungal Smear - Final No fungal elements seen 12/12/17 08:12 Tissue - Arm Gram Stain - Final 12/12/17 08:12 Tissue - Arm Gram Stain - Final - Imaging Impressions Shoulder X-Ray 12/12/17 00:00 CONCLUSION: 1. Intraprocedural images of the left humerus, as above. - Procedures Paracentesis 12/05 and 12/09 EGD and Cscope Irrigation and debridement of left humerus osteomyelitis, placement of antibiotic beads Assessment and Plan - Assessment and Plan 1) Left Humerus Infection s/p I&D and Abx bead placement - POD 1 -WBAT -daily dressing changes POD 2 -infectious Dz for Abx mgmt -ortho cleared for DC once Abx arranged -f/u with Jose G or SONJA in 2 weeks for incision check and suture removal
--- NOTE | 2017-12-13 08:43 | P.PN ---
Subjective Interval history: Follow-up humerus osteomyelitis. Patient has no new complaints wants to go home when cleared by infectious disease. Discussed with nursing. Physical Exam Vital signs: Vital Signs 12/12/17 08:59 12/12/17 09:15 12/12/17 09:35 Temperature 97.6 F 97.6 F Pulse Rate 75 76 78 Respiratory Rate 16 16 16 Blood Pressure 118/59 L 129/70 113/62 Pulse Oximetry 96 96 96 12/12/17 12:00 12/12/17 15:05 12/12/17 16:30 Temperature 98.0 F 98.4 F Pulse Rate 99 H 92 H Respiratory Rate 16 16 18 Blood Pressure 108/68 97/62 L Pulse Oximetry 97 95 12/12/17 20:00 12/12/17 21:51 12/13/17 00:00 Temperature 97.8 F 98.5 F 97.9 F Pulse Rate 107 H 95 H 110 H Respiratory Rate 16 16 15 Blood Pressure 141/90 H 109/69 120/86 Pulse Oximetry 97 97 12/13/17 02:26 12/13/17 04:00 Temperature 98.0 F Pulse Rate 89 Respiratory Rate 18 15 Blood Pressure 106/76 Pulse Oximetry 97 Intake & Output 12/12/17 12/13/17 12/13/17 18:59 06:59 18:59 Intake Total 1540 / 1540 600 / 600 Output Total 50 / 50 Balance 1490 / 1490 600 / 600 Weight 70.8 kg Intake: IV 100 / 100 Cubicin Inj 750 MG In NS Inj 100 / 100 100 ML @ 200 mls/hr IV.SIG Q24H [facility] Rx#:[id number] Oral 740 / 740 600 / 600 Anesthesia Amount 700 / 700 Output: Estimated Blood Loss 50 / 50 Other: # Voids 3 5 Date of Last Bowel Movement 12/10/17 12/10/17 # Bowel Movements 0 Narrative: GENERAL: thin, male, in NAD, lying comfortably in bed SKIN: Warm and dry. CARDIOVASCULAR: Regular rate and rhythm. S1 and S2 no murmurs rubs or gallops. RESPIRATORY: Clear to auscultation x2 GASTROINTESTINAL: Abdomen not distended, nontender to palpation, +bowel sounds , Neg rebound MUSCULOSKELETAL: Extremities without clubbing, cyanosis. NEUROLOGICAL: AAOx3, no focal deficits. - Urinary Catheter Management Indwelling Urethral Catheter Cath placed during this visit: yes, but has since been removed by the nurse Reason for continuing: Decision to DC catheter Removal date: 12/07/17 Removal time: 14:08 Results - Labs CBC & Chem 7: 12/10/17 06:16 12/10/17 06:16 Microbiology 12/12/17 08:12 Tissue - Arm Fungal Smear - Final No fungal elements seen 12/12/17 08:12 Tissue - Arm Fungal Smear - Final No fungal elements seen 12/12/17 08:12 Tissue - Arm Gram Stain - Final 12/12/17 08:12 Tissue - Arm Gram Stain - Final 12/12/17 08:12 Tissue - Arm Fungal Smear - Final No fungal elements seen 12/12/17 08:12 Tissue - Arm Fungal Smear - Final No fungal elements seen 12/12/17 08:12 Tissue - Arm Gram Stain - Final 12/12/17 08:12 Tissue - Arm Gram Stain - Final - Imaging Impressions Shoulder X-Ray 12/12/17 00:00 CONCLUSION: 1. Intraprocedural images of the left humerus, as above. - Procedures Paracentesis 12/05 and 12/09 EGD and Cscope Irrigation and debridement of left humerus osteomyelitis, placement of antibiotic beads Assessment and Plan - Assessment (1) Hypertension Code(s): I10 - Essential (primary) hypertension Status: Acute (2) Fracture of humerus with nonunion Code(s): S42.309K - Unspecified fracture of shaft of humerus, unspecified arm, subsequent encounter for fracture with nonunion Status: Acute (3) Open fracture of humerus with nonunion Code(s): S42.309K - Unspecified fracture of shaft of humerus, unspecified arm, subsequent encounter for fracture with nonunion Status: Acute (4) Cirrhosis Code(s): K74.60 - Unspecified cirrhosis of liver Status: Acute (5) Osteomyelitis Code(s): M86.9 - Osteomyelitis, unspecified Status: Acute - Plan 52-year-old Male with a PMHx of COPD and EtOH abuse with Liver failure admitted for inpatient management of ascites status post paracentesis, 1. Alcoholic Cirrhosis/Ascites s/p Paracentesis on 12/05 with 12L removed Managed by GI, appreciate assistance EGD and Colonoscopy on 12/06 with findings as below Continue Lasix and Aldactone, follow electrolytes and renal function Cont. MVI and thiamine Discussed with patient option of hospice/palliative consult for possible better management of outpatient care vs trying to establish with primary (needing frequent paracentesis; pt understands this is not curable). Agrees to palliative care consult. Patient wants to continue aggressive treatment S/P colonoscopy on 12/06/17 1. Mild diverticulosis was noted in the sigmoid colon 2. Rectal varices 3. Retroflexed views revealed internal hemorrhoids 4. Retroflexed views revealed medium internal hemorrhoids 5. Revealed external hemorrhoids S/P EGD on 12/06/17 1. There was LA Class A esophagitis noted 2. There was gastritis in the gastric antrum; biopsy was performed 3. Retroflexed views revealed no abnormalities 2. Osteomyelitis of the Humerus Continue Daptomycin per ID started 12/[address] Russell needs txt until December 30 Has PICC line ID consulted for continuation of care, he would like to be evaluated for home health care IV antibiotics versus ambulatory infusion center MRI with ff results: Edema and rim-enhancing fluid collections in the surrounding soft tissues and there appears to be a sinus tract draining to the skin anterolaterally. These features are of concern for infection with draining abscess. Status post irrigation and debridement of left humerus osteomyelitis, placement of antibiotic beads December 12, 2017. Follow-up cultures negative to date Continue pain management counselled regarding narcotics. Patient states he is not going to take Suboxone anymore. E force queried. Left message with prescribing MD -[facility] 3. COPD, chronic not in acute exacerbation Not on home medications or O2 4. Chelsi Groin Cont. Nystatin cream 5. DVT prophylaxis: ambulatory 6. GI PPX: PPI 7. Dispo: discharge planning for home health care versus ambulatory infusion for IV antibiotics through December 30. Patient overall stable awaiting wound cultures Discharge Planning: Discharge when cleared by infectious disease
[2017-12-13] MEDS: Multivitamin/Minerals Therapeutic Tablet PO SCH (08:47)
[2017-12-13] MEDS: Calcium/Vitamin D 250/125 MG Tablet PO SCH ×2 (08:47→12:09)
[2017-12-13] MEDS: Folic Acid 1 MG Tablet PO SCH (08:47)
[2017-12-13] MEDS: Furosemide 40 MG Tablet PO SCH (08:48)
[2017-12-13] MEDS: DAPTOmycin Inj 750 MG in Sodium Chlor 0.9% Inj 100 ML IV.SIG SCH (16:50)
--- NOTE | 2017-12-13 17:55 | P.PNPAL ---
Reason for Visit Reason for visit: a. To assist with evaluation and management of symptoms including: b. To assist medical decision maker(s) with: better understanding of current medical conditions; weighing benefits/burdens of medical treatment options; making medical treatment decisions. Subjective Subjective/Interval History: Pt seen today to follow up on comfort, goals. s/p I&D by ortho on 12/12/17, placement of antibiotic beads. Jonah procedure well , clear for d/c per Ortho. GI signed off, rec. hepatitis B,A vaccination. ID still following, awaiting final culture results for any further recommendation or changes to antibiotics course. Poss d/c home with PICC and IV clinic for meds. Pt see in room , no visitors present. Alert, oriented pleasant. Denies dyspnea. Denies any GI complaints. Indicates abdomen feels okay does not feel like ascites has come back very much. He is anxious to get discharged from the hospital. He is hopeful he can continue with IV antibiotics at the clinic as he did previously. Indicates arm is definitely more painful postoperatively than it was preoperatively. He indicates pain regimen is fairly effective though he does still have some pain between dosing. Review of living will documents left with him previously he indicates he and his plan to read over them further. He indicates he is waiting for more information and clarification from ID this infection can be eradicated before making final decisions. He indicates he will either keep trying to treat it and get well or "go the other way ". For now he indicates overall he is feeling much better than he has recently and wishes to continue treatment unless he is told that he has no chances of eradicating this infection. * Osteomyelitis history: He apparently sustained a spiral fracture August 2017 of his humerus, due to fall at home, he reportedly was seen at [facility]. There he was told he could have surgery but could end up with an amputation. He chose to have splint application to follow-up outpatient. He did not maintain follow ups with ortho. He apparently suffered several more falls while drinking, since that original injury but did not seek further attention for the arm fracture. In October it was noticed by that he had a wound with drainage with apparent bone visible. She apparently called the orthopedic doctor who instructed them to go to the ED, they did not go to the ED and eventually did present to the ED a week and a half later. At time of that presentation he was unable to communicate history due to apparent intoxication. Blood alcohol level that admission was 160. Ortho at that time recommended surgical intervention I&D however did not recommend fixation/ hardware due to concern for noncompliance, liver cirrhosis, and acute infection. He was discharged home with outpatient antibiotics. Objective Vital Signs: Vital Signs 12/12/17 20:00 12/12/17 21:51 12/13/17 00:00 Temperature 97.8 F 98.5 F 97.9 F Pulse Rate 107 H 95 H 110 H Respiratory Rate 16 16 15 Blood Pressure 141/90 H 109/69 120/86 Pulse Oximetry 97 97 12/13/17 02:26 12/13/17 04:00 12/13/17 08:00 Temperature 98.0 F 98.5 F Pulse Rate 89 89 Respiratory Rate 18 15 16 Blood Pressure 106/76 117/81 Pulse Oximetry 97 95 12/13/17 10:55 12/13/17 12:00 12/13/17 16:00 Temperature 97.6 F 97.8 F Pulse Rate 98 H 99 H Respiratory Rate 18 16 16 Blood Pressure 132/98 H 147/93 H Pulse Oximetry 98 98 Intake & Output 12/12/17 12/13/17 12/13/17 18:59 06:59 18:59 Intake Total 1540 / 1540 600 / 600 Output Total 50 / 50 Balance 1490 / 1490 600 / 600 Weight 70.8 kg Intake: IV 100 / 100 Cubicin Inj 750 MG In NS Inj 100 / 100 100 ML @ 200 mls/hr IV.SIG Q24H [facility] Rx#:[id number] Oral 740 / 740 600 / 600 Anesthesia Amount 700 / 700 Output: Estimated Blood Loss 50 / 50 Other: # Voids 3 5 Date of Last Bowel Movement 12/10/17 12/10/17 12/12/17 # Bowel Movements 0 Physical Exam: CONSTITUTIONAL/GENERAL: This is a frail, cachectic male, ill appearing TUBES/LINES/DRAINS: PICC IV right extremity SKIN: No jaundice, rashes, or lesions. Slight jaundice. Left upper arm dressing clean and dry. Skin warm/dry. Chronic vascular discoloration bilateral lower legs. HEAD: Atraumatic. Normocephalic. CARDIOVASCULAR: Regular rate and rhythm without murmur . No JVD. Peripheral pulses symmetric. RESPIRATORY/CHEST: Symmetric, unlabored respirations. On room air. Clear to auscultation. Breath sounds equal bilaterally. GASTROINTESTINAL: Abdomen soft, mildly tender, slightly rounded and distended. No ascites. Bowel sounds hypoactive. MUSCULOSKELETAL: Extremities without clubbing, cyanosis, or edema. No joint tenderness or effusion noted. No calf tenderness. No mottling or clubbing. NEUROLOGICAL: Awake and alert oriented x3. Pleasant, insight appears reasonable. Moves all 4 extremities. Cooperative. PSYCHIATRIC: No obvious anxiety/depression. no apparent hallucinations or other psychotic thought process. Diagnostic Tests Result Diagrams: 12/10/17 06:16 12/10/17 06:16 Microbiology: Microbiology 12/12/17 08:12 Acid Fast Bacilli Smear - Final Tissue - Arm No acid fast bacilli seen 12/12/17 08:12 Acid Fast Bacilli Smear - Final Tissue - Arm No acid fast bacilli seen 12/12/17 08:12 Acid Fast Bacilli Smear - Final Tissue - Arm No acid fast bacilli seen 12/12/17 08:12 Acid Fast Bacilli Smear - Final Tissue - Arm No acid fast bacilli seen 12/12/17 08:12 Gram Stain - Final Tissue - Arm Wound Culture - Preliminary No growth in 24 hours 12/12/17 08:12 Gram Stain - Final Tissue - Arm Wound Culture - Preliminary No growth in 24 hours 12/12/17 08:12 Gram Stain - Final Tissue - Arm Wound Culture - Preliminary No growth in 24 hours 12/12/17 08:12 Gram Stain - Final Tissue - Arm Wound Culture - Preliminary No growth in 24 hours 12/12/17 08:12 Fungal Smear - Final Tissue - Arm No fungal elements seen 12/12/17 08:12 Fungal Smear - Final Tissue - Arm No fungal elements seen 12/12/17 08:12 Fungal Smear - Final Tissue - Arm No fungal elements seen 12/12/17 08:12 Fungal Smear - Final Tissue - Arm No fungal elements seen Imaging: Impressions Shoulder X-Ray 12/12/17 00:00 CONCLUSION: 1. Intraprocedural images of the left humerus, as above. Procedures: 12/12/17I&D left humerus, antibiotic beads placed Assessment and Plan - Disease Oriented Problem List (1) Hypertension (2) Fracture of humerus with nonunion (3) Cirrhosis (4) Osteomyelitis (5) Coagulopathy (6) Ascites Pertinent Non-Medical Issues: Psychosocial:. 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 Has not worked for some time now due to health, living off his m[facility]. Spiritual: Legal: Patient appears capacitated and able to make his own decisions. He does not have advanced directives. He does indicate he would want his to serve as decision-maker. His would be appropriate legal decision maker as per [place] statutes. Ethical issues impacting care: No ethical issues identified. Important Contacts: Norma Alves [phone] Prognosis: This patient was admitted for ascites, abdominal pain. He has underlying liver disease, as well as osteomyelitis wound to left arm, site of humeral fracture. He has not always followed up regularly outpatient for arm fracture or recommended ascites/liver follow-up treatments. His liver disease alone is not necessarily stage at this point though certainly could progress to such at any time, and would be expected to progress without ongoing aggressive interventions and abstinence from alcohol. He has had ongoing osteomyelitis infection process to left arm, even with ongoing aggressive intervention and treatment may not be curable. Given Combination of these factors and his overall poor health status he may have limited life expectancy , and under those circumstances would be appropriate for hospice if goals compatible. Code Status: Full Code Plan: * Legal decision maker: Patient appears capacitated and able to make his own decisions. He does not have advanced directives. He does indicate he would want his to serve as decision-maker. His would be appropriate legal decision maker as per [place] statutes. * Goals: At this time patient expresses aggressive goals. He and his wish to pursue whatever treatment options are available to try to help his illnesses. He understands he may experience limited life expectancy even with ongoing aggressive interventions; but at this time he would continue to seek hospitalization and whatever treatment options might be available. They are not interested in hospice. * CODE STATUS: Full code. * SYMPTOMS: --Abdominal pain-patient endorses ongoing chronic abdominal pain secondary to ascites. Pain is relieved significantly once paracentesis is done. Pain reoccurs as ascites re-accumulates. Currently endorses good relief with prn 5 mg oxycodone, as well as post paracentesis relief. History of chronic back pain , which he relates resulted in opiate addiction. He is currently on Suboxone though has been weaned significantly does not take every day. Left humeral fracture, initially with minimal pain though now with more pain postoperatively. His adequate pain relief with use of prn. Use 3 doses today, 4 doses yesterday. No recommendations at this time. --Edema, ascites-ongoing edema to lower extremities. Improved with diuretics in the hospital. Ongoing recurrent ascites to abdomen. Secondary to liver disease recurrent. Will likely require ongoing therapeutic paracentesis. * Palliative care will continue to follow during hospital course as condition evolves, to assist patient/decision-maker with understanding of medical conditions, weighing benefits/burdens of treatment options, for clarification of goals of treatment. Additionally will assist with any symptoms of palliative concern Attestation Attestation: To help prompt me to consider important information that might be impacting today's encounter and assessment, information from prior notes written by myself or my colleagues may have been "brought forward" into today's note. My signature on this note, however, is an attestation that I personally performed the exam, history, and/or decision-making noted today, and, unless otherwise indicated, the interactions with patient, family, and staff as well as the review of records all occurred today. I also attest that the listed assessment and stated plan reflect my best clinical judgment today based on the combination of historical information, prior notes, and today's exam/ interactions. When time spent is documented, it refers only to time spent today by the signer, or if indicated, combined time spent today by collaborating physician/nurse practitioner.
[2017-12-14] MEDS: LORazepam 0.5 MG Tablet PO PRN ×3 (05:24→17:43)
--- NOTE | 2017-12-14 07:36 | P.PNOP ---
Subjective Interval history: No new complaints. Some left shoulder pain. Appetite ok. Physical Exam Vital signs: Vital Signs 12/13/17 08:00 12/13/17 10:55 12/13/17 12:00 Temperature 98.5 F 97.6 F Pulse Rate 89 98 H Respiratory Rate 16 18 16 Blood Pressure 117/81 132/98 H Pulse Oximetry 95 98 12/13/17 16:00 12/13/17 20:00 12/14/17 00:00 Temperature 97.8 F 98.6 F 98.8 F Pulse Rate 99 H 102 H 75 Respiratory Rate 16 17 17 Blood Pressure 147/93 H 124/71 115/66 Pulse Oximetry 98 97 93 L Intake & Output 12/13/17 12/14/17 12/14/17 18:59 06:59 18:59 Weight 71 kg Other: # Voids 2 Date of Last Bowel Movement 12/12/17 12/12/17 Narrative: Sitting up in bed NAD Family member at bedside LUE Sling left UE, dressing intact, no new drainage, mild swelling +motor wrist/hand distal, +sens median/ulnar distribution Patient seen and examined by Dr. Dorene Palacios - Constitutional no acute distress - Urinary Catheter Management Indwelling Urethral Catheter Cath placed during this visit: yes, but has since been removed by the nurse Reason for continuing: Decision to DC catheter Removal date: 12/07/17 Removal time: 14:08 Results - Labs CBC & Chem 7: 12/10/17 06:16 12/10/17 06:16 Microbiology 12/12/17 08:12 Tissue - Arm Acid Fast Bacilli Smear - Final No acid fast bacilli seen 12/12/17 08:12 Tissue - Arm Acid Fast Bacilli Smear - Final No acid fast bacilli seen 12/12/17 08:12 Tissue - Arm Acid Fast Bacilli Smear - Final No acid fast bacilli seen 12/12/17 08:12 Tissue - Arm Acid Fast Bacilli Smear - Final No acid fast bacilli seen 12/12/17 08:12 Tissue - Arm Gram Stain - Final 12/12/17 08:12 Tissue - Arm Wound Culture - Preliminary No growth in 24 hours 12/12/17 08:12 Tissue - Arm Gram Stain - Final 12/12/17 08:12 Tissue - Arm Wound Culture - Preliminary No growth in 24 hours 12/12/17 08:12 Tissue - Arm Gram Stain - Final 12/12/17 08:12 Tissue - Arm Wound Culture - Preliminary No growth in 24 hours 12/12/17 08:12 Tissue - Arm Gram Stain - Final 12/12/17 08:12 Tissue - Arm Wound Culture - Preliminary No growth in 24 hours - Procedures Paracentesis 12/05 and 12/09 EGD and Cscope Irrigation and debridement of left humerus osteomyelitis, placement of antibiotic beads Assessment and Plan - Ortho Post Op Day # 2 - Assessment and Plan 1) Left Humerus Infection s/p I&D and Abx bead placement - POD 2 - Ortho stable today. - Ortho clear for discharge when infectious disease clears and arranges antibiotics. - WBAT Left UE. Sling for comfort. -daily dressing changes beginning today then daily. -infectious Dz for Abx mgmt -f/u with Jose G or SONJA in 2 weeks for incision check and suture removal
--- NOTE | 2017-12-14 08:02 | P.PN ---
Subjective Interval history: Follow-up left humerus OM. He is doing okay except his abdomen is slightly more distended. States he has been trying hard to limit his fluid intake Physical Exam Vital signs: Vital Signs 12/13/17 08:00 12/13/17 10:55 12/13/17 12:00 Temperature 98.5 F 97.6 F Pulse Rate 89 98 H Respiratory Rate 16 18 16 Blood Pressure 117/81 132/98 H Pulse Oximetry 95 98 12/13/17 16:00 12/13/17 20:00 12/14/17 00:00 Temperature 97.8 F 98.6 F 98.8 F Pulse Rate 99 H 102 H 75 Respiratory Rate 16 17 17 Blood Pressure 147/93 H 124/71 115/66 Pulse Oximetry 98 97 93 L Intake & Output 12/13/17 12/14/17 12/14/17 18:59 06:59 18:59 Weight 71 kg Other: # Voids 2 Date of Last Bowel Movement 12/12/17 12/12/17 Narrative: GENERAL: thin, male, in NAD, lying comfortably in bed SKIN: Warm and dry. CARDIOVASCULAR: Regular rate and rhythm. S1 and S2 no murmurs rubs or gallops. RESPIRATORY: Clear to auscultation x2 GASTROINTESTINAL: Abdomen more distended with fluid wave, nontender to palpation , +bowel sounds MUSCULOSKELETAL: Extremities without clubbing, cyanosis. NEUROLOGICAL: AAOx3, no focal deficits. - Urinary Catheter Management Indwelling Urethral Catheter Cath placed during this visit: yes, but has since been removed by the nurse Reason for continuing: Decision to DC catheter Removal date: 12/07/17 Removal time: 14:08 Results - Labs CBC & Chem 7: 12/10/17 06:16 12/14/17 06:48 Microbiology 12/12/17 08:12 Tissue - Arm Acid Fast Bacilli Smear - Final No acid fast bacilli seen 12/12/17 08:12 Tissue - Arm Acid Fast Bacilli Smear - Final No acid fast bacilli seen 12/12/17 08:12 Tissue - Arm Acid Fast Bacilli Smear - Final No acid fast bacilli seen 12/12/17 08:12 Tissue - Arm Acid Fast Bacilli Smear - Final No acid fast bacilli seen 12/12/17 08:12 Tissue - Arm Gram Stain - Final 12/12/17 08:12 Tissue - Arm Wound Culture - Preliminary No growth in 24 hours 12/12/17 08:12 Tissue - Arm Gram Stain - Final 12/12/17 08:12 Tissue - Arm Wound Culture - Preliminary No growth in 24 hours 12/12/17 08:12 Tissue - Arm Gram Stain - Final 12/12/17 08:12 Tissue - Arm Wound Culture - Preliminary No growth in 24 hours 12/12/17 08:12 Tissue - Arm Gram Stain - Final 12/12/17 08:12 Tissue - Arm Wound Culture - Preliminary No growth in 24 hours - Procedures Paracentesis 12/05 and 12/09 EGD and Cscope Irrigation and debridement of left humerus osteomyelitis, placement of antibiotic beads Assessment and Plan - Assessment (1) Hypertension Code(s): I10 - Essential (primary) hypertension Status: Acute (2) Fracture of humerus with nonunion Code(s): S42.309K - Unspecified fracture of shaft of humerus, unspecified arm, subsequent encounter for fracture with nonunion Status: Acute (3) Open fracture of humerus with nonunion Code(s): S42.309K - Unspecified fracture of shaft of humerus, unspecified arm, subsequent encounter for fracture with nonunion Status: Acute (4) Cirrhosis Code(s): K74.60 - Unspecified cirrhosis of liver Status: Acute (5) Osteomyelitis Code(s): M86.9 - Osteomyelitis, unspecified Status: Acute - Plan 52-year-old Male with a PMHx of COPD and EtOH abuse with Liver failure admitted for inpatient management of ascites status post paracentesis, 1. Alcoholic Cirrhosis/Ascites s/p Paracentesis on 12/05 with 12L removed. He has increased abdominal girth but no tension noted. Managed by GI, appreciate assistance EGD and Colonoscopy on 12/06 with findings as below Continue Lasix and Aldactone, follow electrolytes and renal function. Will switch to IV Lasix today and monitor response. Repeat electrolytes and renal function the morning Cont. MVI and thiamine Discussed with patient option of hospice/palliative consult for possible better management of outpatient care vs trying to establish with primary (needing frequent paracentesis; pt understands this is not curable). Agrees to palliative care consult. Patient wants to continue aggressive treatment S/P colonoscopy on 12/06/17 1. Mild diverticulosis was noted in the sigmoid colon 2. Rectal varices 3. Retroflexed views revealed internal hemorrhoids 4. Retroflexed views revealed medium internal hemorrhoids 5. Revealed external hemorrhoids S/P EGD on 12/06/17 1. There was LA Class A esophagitis noted 2. There was gastritis in the gastric antrum; biopsy was performed 3. Retroflexed views revealed no abnormalities 2. Osteomyelitis of the Humerus Continue Daptomycin per ID started 12/[address] Russell needs txt until December 30 Has PICC line ID consulted for continuation of care, he would like to be evaluated for home health care IV antibiotics versus ambulatory infusion center MRI with ff results: Edema and rim-enhancing fluid collections in the surrounding soft tissues and there appears to be a sinus tract draining to the skin anterolaterally. These features are of concern for infection with draining abscess. Status post irrigation and debridement of left humerus osteomyelitis, placement of antibiotic beads December 12, 2017. Follow-up cultures negative to date. Nursing to f/u with ID re dc planning Continue pain management counselled regarding narcotics. Patient states he is not going to take Suboxone anymore. E force queried. Left message with prescribing MD -[facility] 3. COPD, chronic not in acute exacerbation Not on home medications or O2 4. Chelsi Groin Cont. Nystatin cream 5. DVT prophylaxis: ambulatory 6. GI PPX: PPI 7. Dispo: discharge planning for home health care versus ambulatory infusion for IV antibiotics through December 30. Patient overall stable awaiting wound cultures Discharge Planning: Discharge when cleared by infectious disease
[2017-12-14] MEDS: Folic Acid 1 MG Tablet PO SCH (08:36)
[2017-12-14] MEDS: Calcium/Vitamin D 250/125 MG Tablet PO SCH ×3 (08:36→17:43)
[2017-12-14] MEDS: Multivitamin/Minerals Therapeutic Tablet PO SCH (08:36)
[2017-12-14 08:39] VITALS: RESP 18
[2017-12-14] MEDS: Furosemide 40 MG Tablet PO SCH (08:39)
[2017-12-14 08:44] LABS: Anion Gap 7 meq/L (5-15); Blood Urea Nitrogen 13 mg/dL (7-18); Carbon Dioxide 29.8 meq/L (21.0-32.0); Chloride 96 meq/L (98-107); Glomerular Filtration Rate Greater Than 89 mL/min (>89); Glucose,Random 88 mg/dL (74-106); Magnesium 1.7 mg/dL (1.5-2.5); Potassium 4.4 meq/L (3.5-5.1); Sodium 133 meq/L (136-145)
--- NOTE | 2017-12-14 14:52 | P.PNID ---
Subjective Remarks: pt co L arm pain - improved no fever increasing abd girth Multiple clx are negative @ 48 hrs Antibiotics: daptomyicn Allergies/Adverse Reactions: Allergies No Known Allergies Allergy (Verified 12/04/17 18:52) Objective Vital Signs 12/13/17 16:00 12/13/17 20:00 12/14/17 00:00 Temperature 97.8 F 98.6 F 98.8 F Pulse Rate 99 H 102 H 75 Respiratory Rate 16 17 18 Blood Pressure 147/93 H 124/71 115/66 Pulse Oximetry 98 97 93 L 12/14/17 08:00 12/14/17 12:00 Temperature 97.9 F 98.6 F Pulse Rate 87 98 H Respiratory Rate 18 18 Blood Pressure 121/83 128/81 Pulse Oximetry 97 95 Intake & Output 12/13/17 12/14/17 12/14/17 18:59 06:59 18:59 Weight 71 kg Other: # Voids 2 3 Date of Last Bowel Movement 12/12/17 12/12/17 12/13/17 12/12/17 08:12 Tissue - Arm Gram Stain - Final 12/12/17 08:12 Tissue - Arm Wound Culture - Preliminary No growth in 48 hours 12/12/17 08:12 Tissue - Arm Gram Stain - Final 12/12/17 08:12 Tissue - Arm Wound Culture - Preliminary No growth in 48 hours 12/12/17 08:12 Tissue - Arm Gram Stain - Final 12/12/17 08:12 Tissue - Arm Wound Culture - Preliminary No growth in 48 hours 12/12/17 08:12 Tissue - Arm Gram Stain - Final 12/12/17 08:12 Tissue - Arm Wound Culture - Preliminary No growth in 48 hours 12/12/17 08:12 Tissue - Arm Acid Fast Bacilli Smear - Final No acid fast bacilli seen 12/12/17 08:12 Tissue - Arm Mycobacterial Culture - Pending 12/12/17 08:12 Tissue - Arm Acid Fast Bacilli Smear - Final No acid fast bacilli seen 12/12/17 08:12 Tissue - Arm Mycobacterial Culture - Pending 12/12/17 08:12 Tissue - Arm Acid Fast Bacilli Smear - Final No acid fast bacilli seen 12/12/17 08:12 Tissue - Arm Mycobacterial Culture - Pending 12/12/17 08:12 Tissue - Arm Acid Fast Bacilli Smear - Final No acid fast bacilli seen 12/12/17 08:12 Tissue - Arm Mycobacterial Culture - Pending 12/12/17 08:12 Tissue - Arm Fungal Smear - Final No fungal elements seen 12/12/17 08:12 Tissue - Arm Fungal Culture - Pending 12/12/17 08:12 Tissue - Arm Fungal Smear - Final No fungal elements seen 12/12/17 08:12 Tissue - Arm Fungal Culture - Pending 12/12/17 08:12 Tissue - Arm Fungal Smear - Final No fungal elements seen 12/12/17 08:12 Tissue - Arm Fungal Culture - Pending 12/12/17 08:12 Tissue - Arm Fungal Smear - Final No fungal elements seen 12/12/17 08:12 Tissue - Arm Fungal Culture - Pending Lab - Chemistry Results 12/14/17 06:48 Sodium 133 L Potassium 4.4 Chloride 96 L Carbon Dioxide 29.8 Anion Gap 7 BUN 13 Creatinine 0.81 Estimated GFR Greater than 89 Random Glucose 88 Calcium 8.0 L Magnesium 1.7 Imaging: ITS Impressions Chest X-Ray 12/04/17 19:16 CONCLUSION: No acute cardiopulmonary process. Venous Doppler Study 12/04/17 19:26 CONCLUSION: No DVT. Paracentesis Ultrasound 12/09/17 00:00 CONCLUSION: 1. Uncomplicated paracentesis. Humerus MRI 12/10/17 00:00 CONCLUSION: 1. Nonacute fracture with incomplete healing again seen of the proximal shaft of the left humerus. There is medial displacement and angulation deformity which is similar to before. 2. Edema and rim-enhancing fluid collections in the surrounding soft tissues and there appears to be a sinus tract draining to the skin anterolaterally. These features are of concern for infection with draining abscess. If there is clinical evidence of infection, then signal changes consistent with osteomyelitis are seen on both sides of the fracture extending 6.5 cm proximally and 8.5 cm distally. Shoulder X-Ray 12/12/17 00:00 CONCLUSION: 1. Intraprocedural images of the left humerus, as above. Physical Exam: GENERAL: NAD chromnically ill appearing SKIN: Warm and dry. EYES: No scleral icterus. No injection or drainage. ENT: Mucous membranes pink and moist. RESPIRATORY: No accessory muscle use. Breathing unlaboured GASTROINTESTINAL: Abdomen soft, non-tender, distended. Marked, but not tense ascitis MUSCULOSKELETAL: Extremities without clubbing, cyanosis, or edema. L upper arm: incision is covered with intact dressing + indiurated, tender bone with irregular surface NEUROLOGICAL: Awake and alert. No obvious cranial nerve deficits. Motor grossly within normal limits. Five out of 5 muscle strength in the arms and legs. Normal speech. PSYCHIATRIC: Appropriate mood and affect; insight and judgment normal. Assessment and Plan - Plan L humerus chronic osteomyelitis with sinus tract formation sp I+D , beads placement - signs of poor healing - High risk for failure Culture negative osteomyelitis ESLD Asdcites sp paracenthesis cont daptomycin thru 12/30/17, up the dose to 12 mg/kg fu CKs levels weekly OK to dc from ID standpoint dw Dr Oliva
--- NOTE | 2017-12-14 15:32 | P.DCO ---
- Diagnosis (1) Osteomyelitis Status: Acute - Physical Therapy Order: Evaluate and treat, Improve ambulation, Strength and gait training - Home Health Nursing Order: Medical education, Signs/symptoms of disease process, Medication education-adverse effect, Nursing assessment with vital signs, IV medication administration (IV daptomycin thru 12/30) - Case Management Consult Yes - Certification I have seen patient Morris Ricardo on 12/14/17. My clinical findings support the need for the requested home health care services because: Deconditioned with increased weakness, Medication compliance is questionable I certify that my clinical findings support that this patient is homebound because: Unsafe to leave home unassisted, Need for psychosocial assistance
--- NOTE | 2017-12-14 15:36 | P.DCO ---
Post Hospital Infusion Therapy - Infusion Therapy Location of Infusion Therapy: Home Health Care IV Infusion Order - Patient Information Patient Weight: 71 kg - Diagnosis (1) Osteomyelitis Code(s): M86.9 - Osteomyelitis, unspecified - Administer Medication Daptomycin Directions: q 24 hours (850 mg) Start Treatment: 12/15/17 Stop Treatment: 12/30/17 - Additional Information Venous Access: PICC Line Additional Instructions: [x] Peripheral flush and dressing changes per protocol [x] Implanted port and central line decorator: * Implanted port: 10 ml Normal Saline followed by 5 ml Heparin 100 units/ml Heparin flush after each use and monthly to maintain. [] May leave port accessed during therapy. [] May leave peripheral site accessed for duration of therapy. [x] If patient has SOB or respiratory distress, check oxygen saturation. If less than 90% or clinical signs of respiratory distress, administer oxygen at 2 L/min. via nasal cannula and notify physician. [x] Anaphylaxis/Reaction orders: * Stop infusion. * Keep IV line open with saline flush. * Notify physician. * Monitor vital signs every 15 minutes until symptoms resolve. * Check Oxygen saturation; Oxygen at 2 L/min. via nasal cannula if less than 90% or clinical signs of respiratory distress. * Administer diphenhydramine (Benadryl) 25 mg IV STAT, (unless patient has received as pre-med). May repeat once, if necessary. * Solu-Cortef 250 mg IVP over 30-60 seconds, use 100 mg vials for each dissolution. * Epinephrine (1mg/1 ml) 0.3 mg subcutaneously or IVP now with any signs of respiratory distress. * Check with physician for new additional pre-med orders if patient is re- challenged or re-treated. [x] May remove PICC line when treatment complete, after confirming with Physician. [x] If the patient is admitted to the hospital, the ED, or transferred via [facility] , complete transfer form including medication reconciliation order sheet. Weekly Labs: Serum CK Levels Case Management Consult: Yes - Patient Information Allergies No Known Allergies Allergy (Verified 12/04/17 18:52) (1) Osteomyelitis Qualifiers: Osteomyelitis location: humerus
--- NOTE | 2017-12-14 15:41 | P.DS ---
Date of admission: 12/05/17 13:19 Primary care physician: Christy Kaur Brief History from admission: 52-year-old male with a past medical history of hypertension, COPD, cirrhosis with chronic ascites and chronic osteomyelitis of the left humerus with a PICC line in place receiving daily daptomycin presents to the emergency department for evaluation of abdominal and chest pain. The patient's symptoms have persisted for the past week. His last paracentesis was done on 11/20/17. The patient has been unable to arrange outpatient paracentesis and returns to the emergency department with worsening abdominal pain. He endorses associated shortness of breath. Positive bilateral lower extremity edema. Positive constipation. No nausea/vomiting/diarrhea. No fevers/chills. No lateralizing signs/symptoms. DS: Diagnosis - Discharge Diagnosis (1) Osteomyelitis Status: Acute (2) Hypertension Status: Acute (3) Fracture of humerus with nonunion Status: Acute (4) Open fracture of humerus with nonunion Status: Acute (5) Cirrhosis Status: Acute DS: Medications - Discharge Medications Prescriptions: furosemide 40 mg PO DAILY #30 tab oxycodone 5 mg PO Q6H PRN #12 tab PRN Reason: Acute Pain spironolactone 100 mg PO DAILY #30 tab DS: Summary Hospital Course: 52-year-old Male with a PMHx of COPD and EtOH abuse with Liver failure admitted for inpatient management of ascites status post paracentesis, 1. Alcoholic Cirrhosis/Ascites s/p Paracentesis on 12/05 with 12L removed. He has increased abdominal girth but no tension noted. Managed by GI, appreciate assistance EGD and Colonoscopy on 12/06 with findings as below Continue Lasix and Aldactone, follow electrolytes and renal function. Repeat electrolytes and renal function the morning Cont. MVI and thiamine Discussed with patient option of hospice/palliative consult for possible better management of outpatient care vs trying to establish with primary (needing frequent paracentesis; pt understands this is not curable). Agrees to palliative care consult. Patient wants to continue aggressive treatment S/P colonoscopy on 12/06/17 1. Mild diverticulosis was noted in the sigmoid colon 2. Rectal varices 3. Retroflexed views revealed internal hemorrhoids 4. Retroflexed views revealed medium internal hemorrhoids 5. Revealed external hemorrhoids S/P EGD on 12/06/17 1. There was LA Class A esophagitis noted 2. There was gastritis in the gastric antrum; biopsy was performed 3. Retroflexed views revealed no abnormalities 2. Osteomyelitis of the Humerus Continue Daptomycin per ID started 12/[address] Russell needs txt until December 30 Has PICC line ID consulted for continuation of care, he would like to be evaluated for home health care IV antibiotics versus ambulatory infusion center MRI with ff results: Edema and rim-enhancing fluid collections in the surrounding soft tissues and there appears to be a sinus tract draining to the skin anterolaterally. These features are of concern for infection with draining abscess. Status post irrigation and debridement of left humerus osteomyelitis, placement of antibiotic beads December 12, 2017. Follow-up cultures negative to date. Discussed with infectious disease increase daptomycin to 12 mg/kg same stop date. She has cleared patient for discharge. Continue pain management counselled regarding narcotics. Patient states he is not going to take Suboxone anymore. E force queried. Left message with prescribing MD -[facility] 3. COPD, chronic not in acute exacerbation Not on home medications or O2 4. Chelsi Groin Cont. Nystatin cream 5. DVT prophylaxis: ambulatory 6. GI PPX: PPI 7. Dispo: discharge planning for home health care versus ambulatory infusion for IV antibiotics through December 30. - Time Spent with Patient Total time spent providing and/or coordinating discharge services: Greater than 30 minutes - Quality: VTE Deep Vein Thrombosis/Pulmonary Embolism Present on Admission: No Exam Vital signs: Vital Signs 12/13/17 16:00 12/13/17 20:00 12/14/17 00:00 Temperature 97.8 F 98.6 F 98.8 F Pulse Rate 99 H 102 H 75 Respiratory Rate 16 17 18 Blood Pressure 147/93 H 124/71 115/66 Pulse Oximetry 98 97 93 L 12/14/17 08:00 12/14/17 12:00 Temperature 97.9 F 98.6 F Pulse Rate 87 98 H Respiratory Rate 18 18 Blood Pressure 121/83 128/81 Pulse Oximetry 97 95 Intake & Output 12/13/17 12/14/17 12/14/17 18:59 06:59 18:59 Weight 71 kg 71 kg Other: # Voids 2 3 Date of Last Bowel Movement 12/12/17 12/12/17 12/13/17 Narrative: GENERAL: thin, male, in NAD, lying comfortably in bed SKIN: Warm and dry. CARDIOVASCULAR: Regular rate and rhythm. S1 and S2 no murmurs rubs or gallops. RESPIRATORY: Clear to auscultation x2 GASTROINTESTINAL: Abdomen more distended with fluid wave, nontender to palpation , +bowel sounds MUSCULOSKELETAL: Extremities without clubbing, cyanosis. NEUROLOGICAL: AAOx3, no focal deficits. Results Procedures completed during hospitalization: Paracentesis 12/05 and 12/09 EGD and Cscope Irrigation and debridement of left humerus osteomyelitis, placement of antibiotic beads Completed studies during hospitalization: Pending at discharge 12/06/17 11:07 Surgical [PTH] Routine Labs on day of discharge: Labs from last 24 hours 12/14/17 12/14/17 06:48 06:48 Sodium 133 L Potassium 4.4 Chloride 96 L Carbon Dioxide 29.8 Anion Gap 7 BUN 13 Creatinine 0.81 Estimated GFR Greater than 89 Random Glucose 88 Calcium 8.0 L Magnesium 1.7 Total Creatine Kinase Cancelled Pending Preliminary micro results at discharge 12/12/17 08:12 Wound Culture - Preliminary Tissue - Arm No growth in 48 hours 12/12/17 08:12 Wound Culture - Preliminary Tissue - Arm No growth in 48 hours 12/12/17 08:12 Wound Culture - Preliminary Tissue - Arm No growth in 48 hours 12/12/17 08:12 Wound Culture - Preliminary Tissue - Arm No growth in 48 hours - Impressions ITS Impressions Chest X-Ray 12/04/17 19:16 CONCLUSION: No acute cardiopulmonary process. Venous Doppler Study 12/04/17 19:26 CONCLUSION: No DVT. Paracentesis Ultrasound 12/09/17 00:00 CONCLUSION: 1. Uncomplicated paracentesis. Humerus MRI 12/10/17 00:00 CONCLUSION: 1. Nonacute fracture with incomplete healing again seen of the proximal shaft of the left humerus. There is medial displacement and angulation deformity which is similar to before. 2. Edema and rim-enhancing fluid collections in the surrounding soft tissues and there appears to be a sinus tract draining to the skin anterolaterally. These features are of concern for infection with draining abscess. If there is clinical evidence of infection, then signal changes consistent with osteomyelitis are seen on both sides of the fracture extending 6.5 cm proximally and 8.5 cm distally. Shoulder X-Ray 12/12/17 00:00 CONCLUSION: 1. Intraprocedural images of the left humerus, as above. Discharge Plan - Discharge Disposition Patient Disposition: W/Home Health Service - Discharge Condition Condition: Stable - Discharge Order Discharge Orders: Discharge Order (Routine); Ordered 12/14/17 Ordered By: Talon Oliva - Discharge Details Discharge Comment: dc after CPK resulted. Scripts transmitted already - Physicians Team Primary Care Provider: Christy Kaur, Attending Provider: Talon Oliva Other Providers: Graciela Merida MD ; Bertha Russell MD ; Jo Salinas MD ; Griselda Ray MD ; Adi Patel MD
[2017-12-14 15:53] LABS: Creatine Kinase 47 U/L (39-308)
[2017-12-14] MEDS: DAPTOmycin Inj 750 MG in Sodium Chlor 0.9% Inj 100 ML IV.SIG SCH (16:06)
[2017-12-14 16:42] VITALS: BP 128/83; PULSE 100; TEMP 98.1; O2SAT 97
== END 2017-12-14 19:50 | disposition home health service (06) ==
LOC: NEPC 18:01 → NEDA 18:01 → NEPHCDU 12-05 01:39 → N06 12-07 06:50
PROVIDERS: ADMIT Internal Medicine; ATTEND Internal Medicine
PROC: PANENDO (2017-12-06 09:10)
PROC: COLONOS (2017-12-06 09:10)